=== PATIENT | female | born 1975 | race Two or more races ===

== ENCOUNTER 2019-01-10 19:56 | Emergency (ER) | payer BC ==
[~2019-01-10] VITALS: Ht 162.6 cm; Wt 86.2 kg
[2019-01-10] MEDS ORDERED: IBUPROFEN 800 MG TAB PO ONE ×2 (21:21→21:30)
[2019-01-10 22:29] VITALS: BP 126/85
== END 2019-01-10 22:32 | disposition home or self-care (01) ==
LOC: ER 20:00
DX: S62.346A Nondisplaced fracture of base of fifth metacarpal bone, right hand, initial encounter for closed fracture (principal); R51 Headache; M54.2 Cervicalgia; V43.52XA Car driver injured in collision with other type car in traffic accident, initial encounter; Y93.89 Activity, other specified; Y99.8 Other external cause status; Y92.410 Unspecified street and highway as the place of occurrence of the external cause
CPT/HCPCS: 29125; 70450; 71250; 72125; 73090; 73130; 73562; 74176

== ENCOUNTER 2020-04-22 05:50 | Emergency (ER) | payer BC ==
[~2020-04-22] VITALS: Ht 162.6 cm; Wt 83.9 kg
[2020-04-22] MEDS ORDERED: ASPirin 81 mg TAB PO ONE (07:00)
[2020-04-22 07:21] LABS: Basophils # (auto) 0.1 10 ^3/uL (0-0.2); Basophils % (auto) 0.7 % (0.0-2.0); Eosinophils # (auto) 0.2 10 ^3/uL (0-0.8); Eosinophils % (auto) 2.4 % (0.0-7.0); Hemoglobin 13.6 g/dL (12.2-16.2); Lymphocytes # (auto) 3.3 10 ^3/uL (0.4-5.4); Lymphocytes % (auto) 33.4 % (10.0-50.0); Mean Corpuscular Hgb Conc. 35.8 g/dL (32.0-36.0); Mean Corpuscular Volume 94.8 fL (80.0-100.0); Monocytes # (auto) 0.6 10 ^3/uL (0-1.3); Neutrophils # (auto) 5.6 10 ^3/uL (1.6-8.6); Neutrophils % (auto) 57.5 % (37.0-80.0); Nucleated Red Blood Cells % 0.1 %; Platelet Count (auto) 180 10^3/uL (140-450); Red Blood Cells 4.01 10^6/uL (4.0-5.20); Red Cell Distribution Width 13.6 % (11.8-14.3); White Blood Cell 9.8 10^3/uL (4.4-10.8)
[2020-04-22 07:39] LABS: INR 0.92 (0.9-1.15); Partial Thromboplastin Time 25.4 sec (23.0-31.2)
[2020-04-22 07:41] LABS: Albumin 3.3 g/dL (3.4-5.0); Anion Gap 9 (5-15); Blood Urea Nitrogen 10 mg/dL (7-18); Calcium 8.7 mg/dL (8.5-10.1); Carbon Dioxide 22 mmol/L (21-32); Chloride 108 mmol/L (98-107); Glucose 97 mg/dL (74-106); Magnesium 2.5 mg/dL (1.6-2.6); Potassium 3.9 mmol/L (3.5-5.1); Sodium 139 mmol/L (136-145)
[2020-04-22 07:50] LABS: Alanine Aminotransferase 46 U/L (13-56); Alkaline Phosphatase 110 U/L (45-117); Aspartate Aminotransferase 16 U/L (15-37); Bilirubin, Total 0.3 mg/dL (0.2-1.0); GFR African American 169 mL/min; GFR Non-African American 140 mL/min; Total Protein 7.2 g/dL (6.4-8.2)
[2020-04-22 08:09] VITALS: BP 125/75
[2020-04-22 12:07] LABS: BUN/Creatinine Ratio 19.6
== END 2020-04-22 08:42 | disposition home or self-care (01) ==
LOC: ER 05:50
DX: R07.89 Other chest pain (principal); F41.9 Anxiety disorder, unspecified
CPT/HCPCS: 36415; 71045; 80053; 83735; 83880; 84484; 85025; 85610; 85730; 93005

== ENCOUNTER → 2020-04-29 | Outpatient (CLI) | payer BC | END | disposition home or self-care (01) | LOC: LAB 10:05 | PROVIDERS: ATTEND Internal Medicine Pulmonary Disease | DX: Z01.812 Encounter for preprocedural laboratory examination (principal); Z20.822 Contact with and (suspected) exposure to COVID-19 | CPT/HCPCS: 36415; 87426 ==

== ENCOUNTER → 2020-04-30 | Outpatient (CLI) | payer BC | END | disposition home or self-care (01) | LOC: PF 07:59 | PROVIDERS: ATTEND Internal Medicine Pulmonary Disease | DX: J45.909 Unspecified asthma, uncomplicated (principal); U07.1 COVID-19 | CPT/HCPCS: 94060 ==

== ENCOUNTER → 2020-05-29 | Outpatient (CLI) | payer BC | END | disposition home or self-care (01) | LOC: XYW 11:03 | PROVIDERS: ATTEND Internal Medicine Pulmonary Disease | DX: R06.00 Dyspnea, unspecified (principal); J45.20 Mild intermittent asthma, uncomplicated; B94.8 Sequelae of other specified infectious and parasitic diseases | CPT/HCPCS: 93306 ==

== ENCOUNTER → 2020-06-07 | Outpatient (CLI) | payer BC ==
[2020-06-07 08:30] LABS: Basophils # (auto) 0.1 10 ^3/uL (0-0.2); Basophils % (auto) 0.7 % (0.0-2.0); Eosinophils # (auto) 0.2 10 ^3/uL (0-0.8); Eosinophils % (auto) 2.9 % (0.0-7.0); Hematocrit 40.3 % (36.0-46.0); Hemoglobin 13.9 g/dL (12.2-16.2); Lymphocytes # (auto) 2.9 10 ^3/uL (0.4-5.4); Lymphocytes % (auto) 37.7 % (10.0-50.0); Mean Corpuscular Hemoglobin 32.8 pg (28.0-32.0); Mean Corpuscular Hgb Conc. 34.5 g/dL (32.0-36.0); Mean Corpuscular Volume 95.3 fL (80.0-100.0); Monocytes # (auto) 0.4 10 ^3/uL (0-1.3); Monocytes % (auto) 5.2 % (0.0-12.0); Neutrophils # (auto) 4.2 10 ^3/uL (1.6-8.6); Neutrophils % (auto) 53.5 % (37.0-80.0); Nucleated Red Blood Cells % 0.1 %; Platelet Count (auto) 226 10^3/uL (140-450); Red Blood Cells 4.23 10^6/uL (4.0-5.20); Red Cell Distribution Width 12.8 % (11.8-14.3); White Blood Cell 7.8 10^3/uL (4.4-10.8)
[2020-06-07 09:04] LABS: Albumin 3.6 g/dL (3.4-5.0); Calcium 8.8 mg/dL (8.5-10.1)
[2020-06-07 09:10] LABS: BUN/Creatinine Ratio 17.4; Bilirubin, Total 0.3 mg/dL (0.2-1.0); Total Protein 7.1 g/dL (6.4-8.2)
== END | disposition home or self-care (01) ==
LOC: LAB 07:59
PROVIDERS: ATTEND Internal Medicine
DX: J45.20 Mild intermittent asthma, uncomplicated (principal); R06.00 Dyspnea, unspecified
CPT/HCPCS: 36415; 80053; 80061; 82306; 83036; 84443; 85025

== ENCOUNTER 2021-04-18 08:07 | Emergency (ER) | payer BC ==
[~2021-04-18] VITALS: Ht 162.6 cm; Wt 79.4 kg
[2021-04-18 08:26] VITALS: BP 141/84
[2021-04-18] MEDS ORDERED: KETOROLAC TROMETH 30 MG/ML 1ML VIAL IV ONE (08:30)
[2021-04-18] MEDS ORDERED: SODIUM CHLORIDE 0.9% 500 ML IV ONE (08:30)
[2021-04-18 08:39] LABS: Urine WBC None Seen /hpf (0 - 5)
[2021-04-18 08:49] LABS: Basophils # (auto) 0.1 10 ^3/uL (0-0.2); Basophils % (auto) 0.9 % (0.0-2.0); Eosinophils # (auto) 0.2 10 ^3/uL (0-0.8); Eosinophils % (auto) 2.6 % (0.0-7.0); Neutrophils # (auto) 4.2 10 ^3/uL (1.6-8.6); Red Cell Distribution Width 12.5 % (11.8-14.3)
[2021-04-18 08:52] LABS: Hematocrit 40.9 % (36.0-46.0); Hemoglobin 14.3 g/dL (12.2-16.2); Lymphocytes # (auto) 2.3 10 ^3/uL (0.4-5.4); Lymphocytes % (auto) 32.9 % (10.0-50.0); Mean Corpuscular Hemoglobin 33.6 pg (28.0-32.0); Mean Corpuscular Hgb Conc. 34.9 g/dL (32.0-36.0); Mean Corpuscular Volume 96.1 fL (80.0-100.0); Monocytes # (auto) 0.4 10 ^3/uL (0-1.3); Monocytes % (auto) 4.9 % (0.0-12.0); Neutrophils % (auto) 58.7 % (37.0-80.0); Nucleated Red Blood Cells % 0.1 %; Red Blood Cells 4.25 10^6/uL (4.0-5.20); White Blood Cell 7.1 10^3/uL (4.4-10.8)
[2021-04-18 08:54] LABS: Urine Bacteria NONE SEEN /hpf (None Seen); Urine Blood Negative /uL (Negative); Urine Specific Gravity 1.019 (1.001-1.035)
[2021-04-18 09:04] LABS: Calcium 8.8 mg/dL (8.5-10.1)
[2021-04-18 09:07] LABS: BUN/Creatinine Ratio 18.9; Bilirubin, Total 0.5 mg/dL (0.2-1.0); Total Protein 7.5 g/dL (6.4-8.2)
[2021-04-18] MEDS ORDERED: DICY20TA PO (09:22)
[2021-04-18] MEDS ORDERED: LACT10SO3 PO ×2 (09:23→09:24)
== END 2021-04-18 09:42 | disposition home or self-care (01) ==
LOC: ER 08:07
DX: K59.00 Constipation, unspecified (principal); K57.90 Diverticulosis of intestine, part unspecified, without perforation or abscess without bleeding; K76.0 Fatty (change of) liver, not elsewhere classified; J45.909 Unspecified asthma, uncomplicated; Z90.710 Acquired absence of both cervix and uterus
CPT/HCPCS: 36415; 74176; 80053; 81001; 83690; 85025; 96361; 96374; 99284; J1885; J7030

== ENCOUNTER 2021-06-06 17:06 | Inpatient (IN) | payer BC ==
[~2021-06-06] VITALS: Ht 162.6 cm; Wt 82.5 kg
[~2021-06-06 17:06] MED LIST: DICY20TA PO; LACT10SO3 PO
[2021-06-06] MEDS ORDERED: PANTOPRAZOLE 40 MG/10 ML VIAL INJ IV ONE (18:30)
[2021-06-06] MEDS ORDERED: ONDANSETRON HCL 4 MG/2 ML VIAL IV ONE (18:30)
[2021-06-06 18:49] LABS: Basophils # (auto) 0.1 10 ^3/uL (0-0.2); Basophils % (auto) 1.1 % (0.0-2.0); Eosinophils # (auto) 0.2 10 ^3/uL (0-0.8); Eosinophils % (auto) 2.3 % (0.0-7.0); Hematocrit 40.9 % (36.0-46.0); Hemoglobin 14.3 g/dL (12.2-16.2); Lymphocytes # (auto) 3.8 10 ^3/uL (0.4-5.4); Lymphocytes % (auto) 41.6 % (10.0-50.0); Mean Corpuscular Hemoglobin 33.3 pg (28.0-32.0); Mean Corpuscular Hgb Conc. 34.9 g/dL (32.0-36.0); Mean Corpuscular Volume 95.3 fL (80.0-100.0); Monocytes # (auto) 0.4 10 ^3/uL (0-1.3); Monocytes % (auto) 4.4 % (0.0-12.0); Neutrophils # (auto) 4.6 10 ^3/uL (1.6-8.6); Neutrophils % (auto) 50.6 % (37.0-80.0); Nucleated Red Blood Cells % 0.1 %; Red Blood Cells 4.29 10^6/uL (4.0-5.20); Red Cell Distribution Width 12.3 % (11.8-14.3)
[2021-06-06 19:10] LABS: BUN/Creatinine Ratio 16.3; Calcium 9.4 mg/dL (8.5-10.1); Potassium 3.8 mmol/L (3.5-5.1)
[2021-06-06 19:13] LABS: Bilirubin, Total 0.2 mg/dL (0.2-1.0); Total Protein 7.5 g/dL (6.4-8.2)
[2021-06-06 19:16] LABS: Urine Bacteria NONE SEEN /hpf (None Seen); Urine Blood Negative /uL (Negative); Urine Specific Gravity 1.015 (1.001-1.035); Urine WBC 2 /hpf (0 - 5)
[2021-06-06] MEDS ORDERED: MORPHINE SULFATE 4 MG/ML SYR/VIAL IV ONE (19:30)
[2021-06-06] MEDS ORDERED: SODIUM CHLORIDE 0.9% 1,000 ML IV ONE (19:30)
[2021-06-06] MEDS ORDERED: FAMOTIDINE (10MG/ML) 2ML VL IV ONE (23:00)
[2021-06-07] VITALS (8 sets, daily range): BP systolic 108–150; BP diastolic 55–99
[2021-06-07] MEDS: SODIUM CHLORIDE 0.9% 1,000 ML IV SCH ×2 (00:35→14:26)
[2021-06-07] MEDS ORDERED: TRAZ100T3 PO (01:34)
[2021-06-07] MEDS ORDERED: DICY10CA PO (01:34)
[2021-06-07] MEDS: MORPHINE SULFATE INJECTION 2 MG/ML SYRG IV PRN ×4 (03:02→18:46)
[2021-06-07] MEDS: SODIUM CHLOR 0.9% PF (SALINE LOCK) 10ML VIAL/SYR IV SCH ×3 (05:36→22:27)
[2021-06-07] MEDS: HYDROcodone-ACET 5/325MG TAB PO PRN (07:40)
[2021-06-08] MEDS: MORPHINE SULFATE INJECTION 2 MG/ML SYRG IV PRN ×3 (01:52→19:55)
[2021-06-08 05:00] VITALS: BP 110/74
[2021-06-08 05:48] LABS: Basophils # (auto) 0.1 10 ^3/uL (0-0.2); Basophils % (auto) 0.6 % (0.0-2.0); Eosinophils # (auto) 0.3 10 ^3/uL (0-0.8); Hematocrit 39.2 % (36.0-46.0); Hemoglobin 13.9 g/dL (12.2-16.2); Lymphocytes # (auto) 2.9 10 ^3/uL (0.4-5.4); Lymphocytes % (auto) 34.8 % (10.0-50.0); Mean Corpuscular Hemoglobin 33.6 pg (28.0-32.0); Mean Corpuscular Hgb Conc. 35.4 g/dL (32.0-36.0); Mean Corpuscular Volume 94.8 fL (80.0-100.0); Monocytes # (auto) 0.4 10 ^3/uL (0-1.3); Monocytes % (auto) 4.8 % (0.0-12.0); Neutrophils # (auto) 4.8 10 ^3/uL (1.6-8.6); Neutrophils % (auto) 56.8 % (37.0-80.0); Nucleated Red Blood Cells % 0.1 %; Red Blood Cells 4.14 10^6/uL (4.0-5.20); Red Cell Distribution Width 12.5 % (11.8-14.3); White Blood Cell 8.4 10^3/uL (4.4-10.8)
[2021-06-08 05:56] LABS: BUN/Creatinine Ratio 24.7; Calcium 8.5 mg/dL (8.5-10.1); Potassium 4.2 mmol/L (3.5-5.1)
[2021-06-08] MEDS: SODIUM CHLOR 0.9% PF (SALINE LOCK) 10ML VIAL/SYR IV SCH ×3 (06:10→21:52)
[2021-06-08] MEDS: SODIUM CHLORIDE 0.9% 1,000 ML IV SCH (08:20)
[2021-06-08 08:30] VITALS: BP 123/63
[2021-06-08] MEDS: ACETAMINOPHEN 325 MG TAB PO PRN (09:00)
[2021-06-08] MEDS: ONDANSETRON HCL 4 MG/2 ML VIAL IV PRN (09:00)
[2021-06-08 11:41] LABS: INR 1.03 (0.9-1.15); Partial Thromboplastin Time 26.1 sec (23.6-33.0)
[2021-06-08 12:30] VITALS: BP 127/80
[2021-06-08 17:00] VITALS: BP 106/66
[2021-06-08 20:00] VITALS: BP 102/57
[2021-06-08 22:00] VITALS: BP 102/57
[2021-06-09] VITALS (8 sets, daily range): BP systolic 104–121; BP diastolic 65–85
[2021-06-09] MEDS: SODIUM CHLORIDE 0.9% 1,000 ML IV SCH ×2 (02:13→17:10)
[2021-06-09] MEDS: SODIUM CHLOR 0.9% PF (SALINE LOCK) 10ML VIAL/SYR IV SCH ×3 (06:01→22:00)
[2021-06-09] MEDS ORDERED: BUPIVACAINE HCL 50 ML ONE (07:22)
[2021-06-09] MEDS ORDERED: fentaNYL CITRATE 100 MCG/2 ML VL ONE ×2 (08:42→09:02)
[2021-06-09] MEDS ORDERED: MIDAZOLAM HCL 2MG/2ML 2ml VIAL (1mg/ml) ONE (08:43)
[2021-06-09] MEDS ORDERED: ROCURONIUM 10MG/ML 10ML VIAL IV ONE (08:44)
[2021-06-09] MEDS ORDERED: NEOSTIGMINE 1 MG/ML INJ (10mg/10ML VIAL) ONE (09:45)
[2021-06-09] MEDS ORDERED: GLYCOPYRROLATE 0.2 MG/ML 1ML VIAL ONE (09:45)
[2021-06-09] MEDS ORDERED: PROPOFOL 10 MG/ML 20 ML IV ONE (09:53)
[2021-06-09] MEDS ORDERED: ONDANSETRON HCL 4 MG/2 ML VIAL ONE (09:54)
[2021-06-09] MEDS ORDERED: LIDOCAINE 2% (LOCAL ANESTH.) PF 5ml SDV ONE (09:54)
[2021-06-09] MEDS: POTASSIUM CHLORIDE 20 MEQ in D5W/LACTATED RINGERS 1,000 ML IV SCH ×2 (10:00→20:06)
[2021-06-09] MEDS ORDERED: ONDANSETRON HCL 4 MG/2 ML VIAL IV PRN (10:15)
[2021-06-09] MEDS ORDERED: HYDROmorphone HCL 2 MG/ML VL/or syr IV PRN ×2 (10:15)
[2021-06-09] MEDS: ONDANSETRON HCL 4 MG/2 ML VIAL IV PRN ×2 (12:39→17:18)
[2021-06-09] MEDS: MORPHINE SULFATE INJECTION 2 MG/ML SYRG IV PRN ×2 (12:39→19:55)
[2021-06-09] MEDS ORDERED: SENNA 8.6 MG TAB PO ONE (16:45)
[2021-06-09] MEDS: HYDROcodone-ACET 5/325MG TAB PO PRN ×2 (17:18→23:07)
[2021-06-10] MEDS: MORPHINE SULFATE INJECTION 2 MG/ML SYRG IV PRN (00:18)
[2021-06-10 05:13] VITALS: BP 110/62
[2021-06-10 05:29] LABS: Basophils # (auto) 0 10 ^3/uL (0-0.2); Basophils % (auto) 0.4 % (0.0-2.0); Eosinophils # (auto) 0.2 10 ^3/uL (0-0.8); Hematocrit 37.2 % (36.0-46.0); Hemoglobin 13.2 g/dL (12.2-16.2); Lymphocytes # (auto) 2.9 10 ^3/uL (0.4-5.4); Lymphocytes % (auto) 32.4 % (10.0-50.0); Mean Corpuscular Hemoglobin 33.6 pg (28.0-32.0); Mean Corpuscular Hgb Conc. 35.5 g/dL (32.0-36.0); Mean Corpuscular Volume 94.5 fL (80.0-100.0); Monocytes # (auto) 0.5 10 ^3/uL (0-1.3); Monocytes % (auto) 5.1 % (0.0-12.0); Neutrophils # (auto) 5.4 10 ^3/uL (1.6-8.6); Neutrophils % (auto) 60.1 % (37.0-80.0); Red Blood Cells 3.93 10^6/uL (4.0-5.20); Red Cell Distribution Width 12.5 % (11.8-14.3)
[2021-06-10 05:43] LABS: Calcium 8.4 mg/dL (8.5-10.1); Potassium 3.7 mmol/L (3.5-5.1)
[2021-06-10] MEDS: HYDROcodone-ACET 5/325MG TAB PO PRN (05:44)
[2021-06-10] MEDS: SODIUM CHLOR 0.9% PF (SALINE LOCK) 10ML VIAL/SYR IV SCH (05:45)
[2021-06-10] MEDS: POTASSIUM CHLORIDE 20 MEQ in D5W/LACTATED RINGERS 1,000 ML IV SCH (05:45)
[2021-06-10 05:46] LABS: BUN/Creatinine Ratio 15.5
[2021-06-10 09:00] VITALS: BP 128/79
[2021-06-10] MEDS ORDERED: cefTRIAXone 1GM/50ML D5W 50 ML IV SCH (09:00)
[2021-06-10] MEDS ORDERED: AMOX500T86 PO (10:18)
[2021-06-10] MEDS: SODIUM CHLORIDE 0.9% 1,000 ML IV SCH (10:24)
[2021-06-10] MEDS: ACETAMINOPHEN 325 MG TAB PO PRN (10:33)
[2021-06-10 11:45] VITALS: BP 112/66
== END 2021-06-10 13:55 | disposition home or self-care (01) | DRG 419 ==
LOC: ER 17:06 → EAST 22:47
PROVIDERS: ADMIT Internal Medicine; ATTEND Internal Medicine Pulmonary Disease
PROC: 0FT44ZZ Resection of Gallbladder, Percutaneous Endoscopic Approach (ICD-10-PCS; principal; 2021-06-09 08:40)
DX: K80.12 Calculus of gallbladder with acute and chronic cholecystitis without obstruction (principal); J45.909 Unspecified asthma, uncomplicated; E66.9 Obesity, unspecified; K59.00 Constipation, unspecified; Z20.822 Contact with and (suspected) exposure to COVID-19; K66.0 Peritoneal adhesions (postprocedural) (postinfection); Z83.3 Family history of diabetes mellitus; Z90.710 Acquired absence of both cervix and uterus; Z68.31 Body mass index [BMI] 31.0-31.9, adult
CPT/HCPCS: 36415; 71045; 74176; 76705; 80048; 80053; 81001; 82150; 82247; 83690; 84702; 85025; 85610; 85730; 86850; 86900; 86901; 96361; 96374; 96375; C9113; G0378; J0696; J2001; J2250; J2405; J2704; J3490

== ENCOUNTER 2023-02-27 20:58 | Emergency (ER) | payer BC ==
[~2023-02-27] VITALS: Ht 162.6 cm; Wt 84.5 kg
[~2023-02-27 20:58] MED LIST changes: +AMOX500T86 PO; +DICY10CA PO; +TRAZ-228 PO
[2023-02-27 21:14] VITALS: RESP 16; TEMP 98; O2SAT 98
[2023-02-27 23:10] LABS: Basophils # (auto) 0.1 10 ^3/uL (0-0.2); Basophils % (auto) 0.7 % (0.0-2.0); Eosinophils # (auto) 0.3 10 ^3/uL (0-0.8); Eosinophils % (auto) 3.8 % (0.0-7.0); Hematocrit 39.7 % (36.0-46.0); Hemoglobin 13.7 g/dL (12.2-16.2); Lymphocytes # (auto) 3.3 10 ^3/uL (0.4-5.4); Lymphocytes % (auto) 40.5 % (10.0-50.0); Mean Corpuscular Hemoglobin 32.9 pg (28.0-32.0); Mean Corpuscular Hgb Conc. 34.6 g/dL (32.0-36.0); Mean Corpuscular Volume 95.3 fL (80.0-100.0); Monocytes # (auto) 0.5 10 ^3/uL (0-1.3); Monocytes % (auto) 6.5 % (0.0-12.0); Neutrophils # (auto) 3.9 10 ^3/uL (1.6-8.6); Neutrophils % (auto) 48.5 % (37.0-80.0); Nucleated Red Blood Cells % 0.1 %; Red Blood Cells 4.17 10^6/uL (4.0-5.20); Red Cell Distribution Width 13.1 % (11.8-14.3); White Blood Cell 8.1 10^3/uL (4.4-10.8)
[2023-02-27 23:23] LABS: Alanine Aminotransferase 72 U/L (7-40); Albumin 4.5 g/dL (3.2-4.8); Alkaline Phosphatase 98 U/L (46-116); Anion Gap 7 (5-15); Aspartate Aminotransferase 21 U/L (13-40); BUN/Creatinine Ratio 17.8 (10.0-20.0); Bilirubin, Total 0.3 mg/dL (0.2-1.0); Blood Urea Nitrogen 13 mg/dL (9-23); Carbon Dioxide 24 mmol/L (20-30); Chloride 109 mmol/L (98-107); Glucose 106 mg/dL (74-106); Potassium 3.8 mmol/L (3.5-5.1); Sodium 140 mmol/L (136-145); Total Protein 7.1 g/dL (5.7-8.2)
[2023-02-28] MEDS ORDERED: KETOROLAC TROMETH 60MG/2ML VIAL IM ONE (00:45)
[2023-02-28] MEDS ORDERED: DexAMETHasone SOD PHOS 10MG/1ML VIAL INJ IM ONE (00:45)
[2023-02-28] MEDS ORDERED: HYDROcodone-ACET 5/325MG TAB PO ONE (00:45)
[2023-02-28] MEDS ORDERED: IBUP1TAB5 PO (00:48)
[2023-02-28] MEDS ORDERED: CYCL-839 PO (00:58)
[2023-02-28 01:00] VITALS: BP 135/80
[2023-02-28 01:10] VITALS: PULSE 82
== END 2023-02-28 01:13 | disposition home or self-care (01) ==
LOC: ER 20:58
DX: M94.0 Chondrocostal junction syndrome [Tietze] (principal); R03.0 Elevated blood-pressure reading, without diagnosis of hypertension; M62.838 Other muscle spasm; R07.89 Other chest pain; J45.909 Unspecified asthma, uncomplicated; Z98.890 Other specified postprocedural states; Z79.899 Other long term (current) drug therapy
CPT/HCPCS: 36415; 71046; 72040; 73030; 80053; 84484; 85025; 85379; 93005; 96372; 99285; J1100; J1885

== ENCOUNTER → 2023-03-11 | Outpatient (CLI) | payer BC ==
[~2023-03-11] MED LIST changes: +CYCL-839 PO; +IBUP1TAB5 PO
[2023-03-11 07:48] LABS: Basophils # (auto) 0 10 ^3/uL (0-0.2); Basophils % (auto) 0.5 % (0.0-2.0); Eosinophils # (auto) 0.2 10 ^3/uL (0-0.8); Eosinophils % (auto) 1.8 % (0.0-7.0); Hematocrit 42.5 % (36.0-46.0); Hemoglobin 14.1 g/dL (12.2-16.2); Lymphocytes # (auto) 2.7 10 ^3/uL (0.4-5.4); Lymphocytes % (auto) 33.3 % (10.0-50.0); Mean Corpuscular Hemoglobin 31.9 pg (28.0-32.0); Mean Corpuscular Hgb Conc. 33.2 g/dL (32.0-36.0); Mean Corpuscular Volume 96.2 fL (80.0-100.0); Monocytes # (auto) 0.4 10 ^3/uL (0-1.3); Monocytes % (auto) 5.1 % (0.0-12.0); Neutrophils # (auto) 4.9 10 ^3/uL (1.6-8.6); Neutrophils % (auto) 59.3 % (37.0-80.0); Nucleated Red Blood Cells % 0.1 %; Red Blood Cells 4.42 10^6/uL (4.0-5.20); White Blood Cell 8.2 10^3/uL (4.4-10.8)
[2023-03-11 08:56] LABS: Alanine Aminotransferase 87 U/L (7-40); Alkaline Phosphatase 98 U/L (46-116); Anion Gap 5 (5-15); BUN/Creatinine Ratio 13.5 (10.0-20.0); Blood Urea Nitrogen 10 mg/dL (9-23); Calcium 9.5 mg/dL (8.5-10.1); Carbon Dioxide 27 mmol/L (20-30); Chloride 109 mmol/L (98-107); Glucose 93 mg/dL (74-106); LDL Cholesterol 163 mg/dL (< 100); Sodium 141 mmol/L (136-145); Triglycerides 172 mg/dL (< 150)
[2023-03-11 08:57] LABS: Albumin 4.6 g/dL (3.2-4.8); Aspartate Aminotransferase 43 U/L (13-40); Bilirubin, Total 0.7 mg/dL (0.2-1.0); Cholesterol 236 mg/dL (< 200); HDL Cholesterol 53 mg/dL (40-59); Total Protein 7.2 g/dL (5.7-8.2)
[2023-03-11 09:34] LABS: Hepatitis B Core Total AB Negative (Negative)
[2023-03-11 12:06] LABS: Hepatitis A Total Antibody Negative (Negative); Hepatitis B Surface Antibody Positive (Negative)
[2023-03-11 12:07] LABS: Hepatitis B Surface Antigen Negative (Negative); Hepatitis C Antibody Negative (Negative)
[2023-03-12 07:07] LABS: RPR Non Reactive (Non Reactive)
[2023-03-12 13:07] LABS: Anti-Nuclear Antibody Direct Negative (Negative)
== END | disposition home or self-care (01) ==
LOC: LAB 07:33
PROVIDERS: ATTEND Student in an Organized Health Care Education/Training Program
DX: Z12.11 Encounter for screening for malignant neoplasm of colon (principal); Z00.00 Encounter for general adult medical examination without abnormal findings; E78.5 Hyperlipidemia, unspecified; R73.09 Other abnormal glucose
CPT/HCPCS: 36415; 80053; 80061; 82274; 84439; 84443; 85025; 86038; 86592; 86703; 86704; 86706; 86708; 86803; 87340

== ENCOUNTER 2023-11-06 09:07 | Inpatient (IN) | payer BC ==
[~2023-11-06] VITALS: Ht 162.6 cm; Wt 81.0 kg
[2023-11-06 10:11] LABS: Basophils # (auto) 0 10 ^3/uL (0-0.2); Basophils % (auto) 0.4 % (0.0-2.0); Eosinophils # (auto) 0.2 10 ^3/uL (0-0.8); Eosinophils % (auto) 1.4 % (0.0-7.0); Hematocrit 41.7 % (36.0-46.0); Hemoglobin 14.9 g/dL (12.2-16.2); Lymphocytes # (auto) 2.3 10 ^3/uL (0.4-5.4); Lymphocytes % (auto) 21.1 % (10.0-50.0); Mean Corpuscular Hemoglobin 34.3 pg (28.0-32.0); Mean Corpuscular Hgb Conc. 35.6 g/dL (32.0-36.0); Mean Corpuscular Volume 96.2 fL (80.0-100.0); Monocytes # (auto) 0.5 10 ^3/uL (0-1.3); Monocytes % (auto) 4.8 % (0.0-12.0); Neutrophils # (auto) 7.9 10 ^3/uL (1.6-8.6); Neutrophils % (auto) 72.3 % (37.0-80.0); Nucleated Red Blood Cells % 0.1 %; Platelet Count (auto) 189 10^3/uL (140-450); Red Blood Cells 4.33 10^6/uL (4.0-5.20)
[2023-11-06 10:17] LABS: Chloride 106 mmol/L (98-107); Potassium 4.1 mmol/L (3.5-5.1); Sodium 140 mmol/L (136-145)
[2023-11-06 10:18] LABS: Anion Gap 8 (5-15); Calcium 9.9 mg/dL (8.7-10.4); Carbon Dioxide 26 mmol/L (20-31)
[2023-11-06 10:23] LABS: BUN/Creatinine Ratio 13.6 (10.0-20.0); Blood Urea Nitrogen 11 mg/dL (9-23); Glucose 92 mg/dL (74-106)
[2023-11-06 10:25] LABS: Urine Bacteria FEW /hpf (None Seen); Urine Blood Negative /uL (Negative); Urine Clarity Clear (Clear); Urine Color Yellow (Yellow); Urine Mucus FEW (None Seen); Urine Protein, UAD 1+ (Negative); Urine Specific Gravity 1.028 (1.001-1.035); Urine Urobilinogen Normal (Negative); Urine WBC 2 /hpf (0 - 5); Urine pH 5.5 (5.0-9.0)
[2023-11-06] MEDS: SODIUM CHLORIDE 0.9% 1,000 ML IV ONE ×2 (11:01→12:18)
[2023-11-06] MEDS: ONDANSETRON HCL 4 MG/2 ML VIAL IV ONE (11:40)
[2023-11-06] MEDS: MORPHINE SULFATE INJ 2 MG/ml SYRG IV ONE (11:41)
[2023-11-06] MEDS: IOHEXOL 300 MG/ML 100ML BOTTLE IJ ONE (12:07)
[2023-11-06] MEDS ORDERED: NITROGLYCERIN 0.4 MG SL TAB SL PRN (14:00)
[2023-11-06] MEDS ORDERED: DOCUSATE SOD 100 MG CAP PO PRN (14:00)
[2023-11-06] MEDS: PIPERACILLIN-TAZOB 3.375GM 100 ML IV ONE (14:22)
[2023-11-06 15:11] LABS: INR 1.05 (0.9-1.15); Prothrombin Time 11.1 sec (9.3-11.8)
[2023-11-06] MEDS: SODIUM CHLORIDE 0.9% 1,000 ML IV SCH (15:53)
[2023-11-06] MEDS: HYDROcodone-ACET 5/325MG TAB PO ONE (15:58)
[2023-11-06 16:30] VITALS: BP 105/55; PULSE 67; RESP 16; TEMP 98.7; O2SAT 96
[2023-11-06 17:00] VITALS: BP 105/55; PULSE 69; RESP 18; TEMP 98.7; O2SAT 97
[2023-11-06] MEDS ORDERED: ROSU20TA14 PO (17:02)
[2023-11-06] MEDS: ONDANSETRON HCL 4 MG/2 ML VIAL IV PRN (17:13)
[2023-11-06] MEDS: MORPHINE SULFATE INJ 2 MG/ml SYRG IV PRN (19:48)
[2023-11-06 21:00] VITALS: BP 104/44; PULSE 70; RESP 18; TEMP 98.1; O2SAT 95
[2023-11-06] MEDS: PIPERACILLIN-TAZOB 3.375GM 100 ML IV SCH (21:41)
[2023-11-07] VITALS (7 sets, daily range): BP systolic 104–126; BP diastolic 52–68; PULSE 58–79; RESP 16–20; TEMP 97.7–99.2; O2SAT 96–97
[2023-11-07 07:27] LABS: Basophils # (auto) 0 10 ^3/uL (0-0.2); Basophils % (auto) 0.5 % (0.0-2.0); Eosinophils # (auto) 0.2 10 ^3/uL (0-0.8); Eosinophils % (auto) 2.2 % (0.0-7.0); Hematocrit 38.6 % (36.0-46.0); Hemoglobin 13.8 g/dL (12.2-16.2); Lymphocytes % (auto) 23.8 % (10.0-50.0); Mean Corpuscular Hemoglobin 34.5 pg (28.0-32.0); Mean Corpuscular Hgb Conc. 35.8 g/dL (32.0-36.0); Mean Corpuscular Volume 96.4 fL (80.0-100.0); Monocytes # (auto) 0.5 10 ^3/uL (0-1.3); Monocytes % (auto) 5.6 % (0.0-12.0); Neutrophils # (auto) 5.7 10 ^3/uL (1.6-8.6); Neutrophils % (auto) 67.9 % (37.0-80.0); Platelet Count (auto) 176 10^3/uL (140-450); Red Cell Distribution Width 12.8 % (11.8-14.3); White Blood Cell 8.4 10^3/uL (4.4-10.8)
[2023-11-07 07:47] LABS: Alanine Aminotransferase 40 U/L (7-40); Alkaline Phosphatase 106 U/L (46-116); Anion Gap 9 (5-15); Blood Urea Nitrogen 8 mg/dL (9-23); Calcium 9.2 mg/dL (8.7-10.4); Carbon Dioxide 25 mmol/L (20-31); Chloride 106 mmol/L (98-107); Glucose 80 mg/dL (74-106); Potassium 3.8 mmol/L (3.5-5.1); Sodium 140 mmol/L (136-145)
[2023-11-07 07:48] LABS: Albumin 4.2 g/dL (3.2-4.8); Aspartate Aminotransferase 14 U/L (13-40); Bilirubin, Total 1.3 mg/dL (0.2-1.0); Total Protein 6.7 g/dL (5.7-8.2)
[2023-11-08] VITALS (8 sets, daily range): BP systolic 107–132; BP diastolic 60–63; PULSE 68–92; RESP 15–18; TEMP 97.8–98.3; O2SAT 95–99
[2023-11-08 07:01] LABS: Eosinophils # (auto) 0.2 10 ^3/uL (0-0.8); Lymphocytes # (auto) 1.9 10 ^3/uL (0.4-5.4); Monocytes # (auto) 0.5 10 ^3/uL (0-1.3); Neutrophils % (auto) 69.3 % (37.0-80.0)
[2023-11-08 07:08] LABS: Basophils # (auto) 0 10 ^3/uL (0-0.2); Basophils % (auto) 0.5 % (0.0-2.0); Eosinophils % (auto) 2.3 % (0.0-7.0); Hematocrit 38.6 % (36.0-46.0); Hemoglobin 13.7 g/dL (12.2-16.2); Lymphocytes % (auto) 22.6 % (10.0-50.0); Mean Corpuscular Hemoglobin 34.1 pg (28.0-32.0); Mean Corpuscular Hgb Conc. 35.5 g/dL (32.0-36.0); Mean Corpuscular Volume 96.1 fL (80.0-100.0); Monocytes % (auto) 5.3 % (0.0-12.0); Platelet Count (auto) 176 10^3/uL (140-450); Red Blood Cells 4.02 10^6/uL (4.0-5.20); White Blood Cell 8.6 10^3/uL (4.4-10.8)
[2023-11-08 07:26] LABS: Anion Gap 8 (5-15); Calcium 9.3 mg/dL (8.7-10.4); Carbon Dioxide 26 mmol/L (20-31); Chloride 106 mmol/L (98-107); Potassium 3.7 mmol/L (3.5-5.1); Sodium 140 mmol/L (136-145)
[2023-11-08 07:32] LABS: BUN/Creatinine Ratio 13.9 (10.0-20.0); Blood Urea Nitrogen 10 mg/dL (9-23); Glucose 76 mg/dL (74-106)
[2023-11-08] MEDS: GADOTERATE MEG 7.5 MMOL/15ml INJ (0.5MMOL/ml) IV ONE (09:38)
[2023-11-08] MEDS: PANTOPRAZOLE 40 MG/10 ML VIAL INJ IV SCH (10:59)
[2023-11-08] MEDS: ERGOCALCIFEROL 50,000 UNIT(1.25MG) CAP PO SCH (12:09)
[2023-11-09] VITALS (8 sets, daily range): BP systolic 108–125; BP diastolic 52–68; PULSE 72–85; RESP 17–18; TEMP 97.8–98.3; O2SAT 94–98
[2023-11-09 06:46] LABS: Anion Gap 8 (5-15); Carbon Dioxide 25 mmol/L (20-31); Chloride 107 mmol/L (98-107); Sodium 140 mmol/L (136-145)
[2023-11-09 06:47] LABS: Calcium 9.1 mg/dL (8.7-10.4)
[2023-11-09 06:53] LABS: BUN/Creatinine Ratio 17.3 (10.0-20.0); Blood Urea Nitrogen 13 mg/dL (9-23); Glucose 68 mg/dL (74-106)
[2023-11-09 07:53] LABS: Basophils # (auto) 0 10 ^3/uL (0-0.2); Basophils % (auto) 0.4 % (0.0-2.0); Eosinophils # (auto) 0.2 10 ^3/uL (0-0.8); Hematocrit 39.2 % (36.0-46.0); Hemoglobin 13.8 g/dL (12.2-16.2); Lymphocytes # (auto) 1.9 10 ^3/uL (0.4-5.4); Lymphocytes % (auto) 22.4 % (10.0-50.0); Mean Corpuscular Hemoglobin 33.9 pg (28.0-32.0); Mean Corpuscular Hgb Conc. 35.3 g/dL (32.0-36.0); Mean Corpuscular Volume 96.3 fL (80.0-100.0); Monocytes # (auto) 0.4 10 ^3/uL (0-1.3); Monocytes % (auto) 5.1 % (0.0-12.0); Neutrophils % (auto) 70.1 % (37.0-80.0); Platelet Count (auto) 189 10^3/uL (140-450); Red Blood Cells 4.08 10^6/uL (4.0-5.20); Red Cell Distribution Width 12.6 % (11.8-14.3); White Blood Cell 8.5 10^3/uL (4.4-10.8)
[2023-11-09] MEDS: ceFAZolin 2 GM/D5W100ml 100 ML IV ONE (10:10)
[2023-11-09] MEDS: BUPIVACAINE 0.25% INJ 50ML VIAL ONE (10:42)
[2023-11-09] MEDS: LIDOCAINE W/ EPINEPHRINE 1% 20ML VIAL ONE (10:42)
[2023-11-09] MEDS ORDERED: MIDAZOLAM HCL 2MG/2ML 2ml VIAL (1mg/ml) ONE (11:23)
[2023-11-09] MEDS ORDERED: fentaNYL CITRATE 100 MCG/2 ML VL ONE (11:23)
[2023-11-09] MEDS ORDERED: MEPERIDINE HCL (25 MG/ML) 1ML VIAL ONE (11:24)
[2023-11-09] MEDS ORDERED: ROCURONIUM 10MG/ML 10ML VIAL IV ONE (11:50)
[2023-11-09] MEDS ORDERED: DexAMETHasone SOD PHOS 10MG/1ML VIAL INJ ONE (11:50)
[2023-11-09] MEDS ORDERED: PROPOFOL 10 MG/ML 20 ML IV ONE (11:50)
[2023-11-09] MEDS ORDERED: SUGAMMADEX 200mg/2ml Vial (100MG/ML) IV ONE (12:16)
[2023-11-09] MEDS ORDERED: ePHEDrine SULFATE 50 MG/ML AMP IV PRN (12:45)
[2023-11-09] MEDS: ONDANSETRON HCL 4 MG/2 ML VIAL IV ONE (12:45)
[2023-11-09] MEDS ORDERED: MORPHINE SULFATE 4 MG/ML SYR/VIAL IV PRN (12:45)
[2023-11-09] MEDS ORDERED: HYDROmorphone HCL 2 MG/ML VL/or syr IV PRN ×2 (12:45→13:00)
[2023-11-09] MEDS ORDERED: hydrALAZINE HCL 20 MG/ML VL IV PRN (12:45)
[2023-11-09] MEDS ORDERED: MIDAZOLAM HCL 2MG/2ML 2ml VIAL (1mg/ml) IV PRN (12:45)
[2023-11-09] MEDS: KETOROLAC TROMETH 30 MG/ML 1ML VIAL IV ONE (12:45)
[2023-11-09] MEDS: D5W/SOD CHL 0.45%/KCL 20MEQ 1,000 ML IV SCH (14:19)
[2023-11-09] MEDS: ceFAZolin 2 GM/D5W50ml 50 ML IV SCH (15:10)
[2023-11-09] MEDS: ONDANSETRON HCL 4 MG/2 ML VIAL IV PRN (17:37)
[2023-11-10] VITALS (8 sets, daily range): BP systolic 101–125; BP diastolic 52–66; PULSE 67–93; RESP 18–22; TEMP 97.4–98.7; O2SAT 95–99
[2023-11-10] MEDS: ACETAMINOPHEN/CODEINE#3 (300/30mg) TAB PO PRN (01:23)
[2023-11-10 06:15] LABS: Basophils # (auto) 0 10 ^3/uL (0-0.2); Basophils % (auto) 0.2 % (0.0-2.0); Eosinophils # (auto) 0 10 ^3/uL (0-0.8); Eosinophils % (auto) 0.2 % (0.0-7.0); Hematocrit 37.8 % (36.0-46.0); Hemoglobin 13.4 g/dL (12.2-16.2); Lymphocytes # (auto) 1.8 10 ^3/uL (0.4-5.4); Lymphocytes % (auto) 17.3 % (10.0-50.0); Mean Corpuscular Hemoglobin 33.4 pg (28.0-32.0); Mean Corpuscular Hgb Conc. 35.4 g/dL (32.0-36.0); Mean Corpuscular Volume 94.3 fL (80.0-100.0); Monocytes # (auto) 0.7 10 ^3/uL (0-1.3); Monocytes % (auto) 6.9 % (0.0-12.0); Neutrophils # (auto) 7.9 10 ^3/uL (1.6-8.6); Neutrophils % (auto) 75.4 % (37.0-80.0); Nucleated Red Blood Cells % 0.1 %; Platelet Count (auto) 223 10^3/uL (140-450); Red Blood Cells 4.01 10^6/uL (4.0-5.20); Red Cell Distribution Width 12.5 % (11.8-14.3); White Blood Cell 10.4 10^3/uL (4.4-10.8)
[2023-11-10 06:28] LABS: Anion Gap 6 (5-15); Carbon Dioxide 25 mmol/L (20-31); Chloride 108 mmol/L (98-107); Potassium 4.1 mmol/L (3.5-5.1); Sodium 139 mmol/L (136-145)
[2023-11-10 06:29] LABS: Calcium 9.3 mg/dL (8.7-10.4)
[2023-11-10 06:33] LABS: Glucose 126 mg/dL (74-106)
[2023-11-10 06:34] LABS: BUN/Creatinine Ratio 9.8 (10.0-20.0); Blood Urea Nitrogen 6 mg/dL (9-23)
[2023-11-10] MEDS: PANTOPRAZOLE 40 MG/10 ML VIAL INJ IV SCH (08:31)
[2023-11-10] MEDS ORDERED: CEPH250C PO (13:44)
[2023-11-10] MEDS ORDERED: DOCU-265 PO (13:44)
[2023-11-10] MEDS ORDERED: NAP500T PO (13:44)
[2023-11-11 01:00] VITALS: BP 102/54; PULSE 84; RESP 16; TEMP 98.9; O2SAT 96
[2023-11-11 05:00] VITALS: BP 101/68; PULSE 87; RESP 18; TEMP 99.1; O2SAT 96
[2023-11-11 06:44] LABS: Basophils # (auto) 0.1 10 ^3/uL (0-0.2); Basophils % (auto) 0.7 % (0.0-2.0); Eosinophils # (auto) 0.1 10 ^3/uL (0-0.8); Eosinophils % (auto) 0.8 % (0.0-7.0); Hematocrit 36.5 % (36.0-46.0); Hemoglobin 13.1 g/dL (12.2-16.2); Lymphocytes # (auto) 2.6 10 ^3/uL (0.4-5.4); Lymphocytes % (auto) 25.2 % (10.0-50.0); Mean Corpuscular Hgb Conc. 35.9 g/dL (32.0-36.0); Mean Corpuscular Volume 94.9 fL (80.0-100.0); Monocytes # (auto) 0.9 10 ^3/uL (0-1.3); Monocytes % (auto) 8.3 % (0.0-12.0); Neutrophils # (auto) 6.7 10 ^3/uL (1.6-8.6); Platelet Count (auto) 200 10^3/uL (140-450); Red Blood Cells 3.84 10^6/uL (4.0-5.20); Red Cell Distribution Width 12.9 % (11.8-14.3); White Blood Cell 10.3 10^3/uL (4.4-10.8)
[2023-11-11 06:50] LABS: Chloride 105 mmol/L (98-107); Sodium 138 mmol/L (136-145)
[2023-11-11 06:51] LABS: Anion Gap 7 (5-15); Carbon Dioxide 26 mmol/L (20-31)
[2023-11-11 06:56] LABS: Glucose 104 mg/dL (74-106)
[2023-11-11 06:57] LABS: BUN/Creatinine Ratio 8.7 (10.0-20.0); Blood Urea Nitrogen 6 mg/dL (9-23)
[2023-11-11 08:00] VITALS: PULSE 64; RESP 18; O2SAT 98
[2023-11-11 09:00] VITALS: BP 124/59; PULSE 97; RESP 19; TEMP 98.5; O2SAT 97
[2023-11-11 13:00] VITALS: BP_SYST 102; BP_SYST 131; BP_DIAS 58; BP_DIAS 86; PULSE 117; PULSE 62; RESP 17; RESP 18; TEMP 97.7; TEMP 98.5; O2SAT 95
[2023-11-11 14:21] VITALS: BP 102/58; PULSE 62; RESP 17; TEMP 98.5; O2SAT 95
== END 2023-11-11 16:45 | disposition home or self-care (01) | DRG 742 ==
LOC: ER 09:07 → OVERFLOW 14:06 → EAST 14:07
PROVIDERS: ADMIT Internal Medicine; ATTEND Internal Medicine
PROC: 0DTJ4ZZ Resection of Appendix, Percutaneous Endoscopic Approach (ICD-10-PCS; 2023-11-09)
PROC: 0UT54ZZ Resection of Right Fallopian Tube, Percutaneous Endoscopic Approach (ICD-10-PCS; principal; 2023-11-09 11:24)
DX: N70.91 Salpingitis, unspecified (principal); K35.80 Unspecified acute appendicitis; K56.7 Ileus, unspecified; K57.30 Diverticulosis of large intestine without perforation or abscess without bleeding; J44.89 Other specified chronic obstructive pulmonary disease; E78.5 Hyperlipidemia, unspecified; J45.909 Unspecified asthma, uncomplicated; E55.9 Vitamin D deficiency, unspecified; Z90.710 Acquired absence of both cervix and uterus; Z90.49 Acquired absence of other specified parts of digestive tract; Z83.3 Family history of diabetes mellitus; Z82.49 Family history of ischemic heart disease and other diseases of the circulatory system
CPT/HCPCS: 36415; 72195; 74176; 74177; 76705; 76830; 76856; 80048; 80053; 81001; 82306; 82607; 83036; 84443; 85025; 85610; 86850; 86900; 86901; 96365; 96375; G0378; J1100; J2250; J2405; J2470; J2543; J2704; J3490

== ENCOUNTER 2024-01-24 14:56 | Emergency (ER) | payer BC ==
[~2024-01-24] VITALS: Ht 162.6 cm; Wt 78.9 kg
[~2024-01-24 14:56] MED LIST changes: -AMOX500T86 PO; +CEPH250C PO; +DOCU-265 PO; -IBUP1TAB5 PO; -LACT10SO3 PO; +NAP500T PO; +ROSU20TA14 PO
--- NOTE | 2024-01-24 15:41 | ED.PDOC ---
GI ASSESSMENT HPI Comments Vitals: Temperature of 98.1 F, pulse rate of 78, respiratory rate of 16, blood pressure 121/74, and pulse oximetry of 96% on room air HPI: Poor Historian. 48-year-old female presents to the emergency department from urgent Care for evaluation of urinary symptoms for the last five days. Patient has some suprapubic discomfort intermittent for the last five days with the associated burning with the urination and polyuria. Denies any nausea or vomiting or fever. Patient states I think I have a UTI. Past Medcial History: Denies any Past Surgical History: Appendectomy, hysterectomy, right fallopian tube resection. REVIEW OF SYSTEMS: CONSTITUTIONAL: Denies acute: fever, diaphoresis, chills, generalized weakness. HEAD: Denies acute: headache, photophobia Eyes: Denies acute: Double vision, vision loss, eye pain, eye discharge. EARS: Denies acute: tinnitus, hearing loss, ear discharge, ear pain, THROAT: Denies acute: sore throat, swelling, difficulty swallowing , pain with swallowing, change in voice. NECK: Denies acute: neck pain, neck swelling, stiff neck. HEART: Denies acute : chest pain, palpitations, LUNGS: Denies acute: SOB, wheezing, cough, hemoptysis ABDOMEN: Denies acute: Nausea, Vomiting, diarrhea, melena , hematemesis, hematochezia SKIN: Denies acute: rash, redness, lesions, itchiness. EXTREMITIES: Denies acute: calf pain, numbness, tingling, weakness, denies pain in extremity. Denies acute: Low back pain. Neuro: Denies acute: focal neurological deficit, motor or sensory focal neurological deficit, tremors, seizure like activity, confusion, dizziness, change in mental status, loss of bowel or bladder function, cauda equina like symptoms. : Denies acute: hematuria, flank pain, PSYCH: Denies acute: hallucination, suicidal ideation, homicidal ideation. FEMALE: Denies acute: abnormal vaginal bleeding, foul odor, unusual discharge. PHYSICAL EXAM: General: no acute distress, awake and alert. Head: normocephalic, atraumatic. Neck: supple, trachea is midline, no swelling. Throat: Normal phonation. Eyes:, no erythema, no purulent discharge, no proptosis, no icterus. Heart: regular rate, regular rhythm, no significant murmur appreciated. Lungs: no apparent respiratory distress, Able to speak in full sentences. No wheezing, no rhonchi, no crackles. No stridors Clear to auscultation bilaterally. Abdomen: Minimal suprapubic tender to palpation, non distended, soft, no guarding, no rebound, + bowel sounds. Neuro: Awake, Alert, oriented to name, self, situation, follows commands GCS=15. Speech is normal. Skin: no petechia, no purpura, no cyanosis, non-pale, not jaundice. Lower extremities: --no - Pitting edema no deformity, no focal swelling, no calf TTP. Makes eye contact. moves all four extremities. Face: no apparent facial droop. Ambulating in the ED independently. Chief Complaint: Abdominal Pain Time Seen by MD: 15:31 Primary Care Provider: UNKNOWN Reviewed Notes: Nurses Notes, Medications, Allergies Allergies: Coded Allergies: NO KNOWN ALLERGIES (Unverified , 01/10/19) Home Meds Active Scripts Naproxen (NAPROSYN TABLET) 500 Mg Tb, 1 TAB PO BID for 10 Days, #20 TAB 1 Refill Prov:NATHALY QURESHI DO 11/10/23 Docusate Sodium (Docusate Sodium) 100 Mg Cap, 100 MG PO BID for 5 Days, #10 CAP Prov:NATHALY QURESHI DO 11/10/23 Cephalexin (KEFLEX CAPSULE) 250 Mg Cp, 2 CAP PO BID, #20 CAP Prov:NATHALY QURESHI DO 11/10/23 Cyclobenzaprine Hcl (Cyclobenzaprine Hcl) 10 Mg Tab, 1 TAB PO Q8HPRN PRN, #15 TAB As needed for muscle spasm Prov:PATTI WEBER Q AUTOMATIC PINSETTER ADJUSTER 02/28/23 Dicyclomine Hcl (Dicyclomine Hcl) 20 Mg Tab, 20 MG PO TID, #30 TAB Prov:MARIO HOOPER PA 04/18/21 Reported Medications Rosuvastatin Calcium (Crestor) 20 Mg Tab, 25 MG PO DAILY, TAB 11/06/23 Trazodone Hcl (Trazodone Hcl) 100 Mg Tab, 100 MG PO HS, MG 06/07/21 Dicyclomine Hcl (BENTYL CAPSULE) 10 Mg Cp, 1 CAP PO BID, #90 CAP 11 Refills 06/07/21 Information Source: Patient Mode of Arrival: Ambulatory Was a procedure done? Was a procedure done?: No X-Ray, Labs, Meds, VS Vital Signs Date Time Temp Pulse Resp B/P (MAP) Pulse Ox O2 Delivery O2 Flow Rate FiO2 01/24/24 15:27 98.1 78 16 121/74 (90) 96 Lab Test 01/24/24 15:41 01/24/24 15:26 Range/Units White Blood Count 9.7 4.4-10.8 10^3/uL Red Blood Count 4.30 4.0-5.20 10^6/uL Hemoglobin 14.2 12.2-16.2 g/dL Hematocrit 41.6 36.0-46.0 % Mean Corpuscular Volume 96.7 80.0-100.0 fL Mean Corpuscular Hemoglobin 33.1 H 28.0-32.0 pg Mean Corpuscular Hemoglobin Concent 34.2 32.0-36.0 g/dL Red Cell Distribution Width 13.1 11.8-14.3 % Platelet Count 198 140-450 10^3/uL Mean Platelet Volume 8.7 6.9-10.8 fL Neutrophils (%) (Auto) 59.9 37.0-80.0 % Lymphocytes (%) (Auto) 33.1 10.0-50.0 % Monocytes (%) (Auto) 4.7 0.0-12.0 % Eosinophils (%) (Auto) 1.5 0.0-7.0 % Basophils (%) (Auto) 0.8 0.0-2.0 % Neutrophils # (Auto) 5.8 1.6-8.6 10 ^3/uL Lymphocytes # (Auto) 3.2 0.4-5.4 10 ^3/uL Monocytes # (Auto) 0.5 0-1.3 10 ^3/uL Eosinophils # (Auto) 0.1 0-0.8 10 ^3/uL Basophils # (Auto) 0.1 0-0.2 10 ^3/uL Nucleated Red Blood Cells 0.1 % Sodium Level 139 136-145 mmol/L Potassium Level 3.9 3.5-5.1 mmol/L Chloride Level 105 98-107 mmol/L Carbon Dioxide Level 27 20-31 mmol/L Anion Gap 7 5-15 Blood Urea Nitrogen 17 9-23 mg/dL Creatinine 0.81 0.550-1.02 mg/dL Glomerular Filtration Rate Calc 90 >90 mL/min BUN/Creatinine Ratio 21.0 H 10.0-20.0 Serum Glucose 85 74-106 mg/dL Lactic Acid Level 0.8 0.4-2.0 mmol/L Calcium Level 9.7 8.7-10.4 mg/dL Total Bilirubin 0.4 0.2-1.0 mg/dL Aspartate Amino Transferase (AST) 15 13-40 U/L Alanine Aminotransferase (ALT) 29 7-40 U/L Alkaline Phosphatase 110 46-116 U/L Total Protein 7.2 5.7-8.2 g/dL Albumin 4.5 3.2-4.8 g/dL Lipase 51 12-53 U/L Urine Color Colorless Yellow Urine Clarity Turbid H Clear Urine pH 6.0 5.0-9.0 Urine Specific [place] 1.021 1.001-1.035 Urine Protein Negative Negative Urine Ketones Negative Negative Urine Blood 2+ H Negative /uL Urine Nitrite Negative Negative Urine Bilirubin Negative Negative Urine Urobilinogen 2 H Negative mg/dL Urine Leukocyte Esterase 3+ Negative /uL Urine RBC 44 0 - 4 /hpf Urine WBC 235 0 - 5 /hpf Urine Squamous Epithelial Cells Few <5 /hpf Urine Bacteria Few H None Seen /hpf Urine Yeast (Budding) Moderate None Seen /hpf Urine Glucose Normal Normal mg/dL Time of 1ST Reevaluation: 15:32 Reevaluation 1ST: Unchanged Patient Education/Counseling: Diagnosis, Treatment Family Education/Counseling: No Family Present Departure 1 Departure Time of Disposition: 17:34 Impression: Primary Impression: Urinary tract infection Disposition: 01 HOME / SELF CARE / HOMELESS Condition: Stable Additional Instructions: Additional discharge instructions: You MUST follow-up with your primary care/family doctor in 1 to 2 days. If you are unable to see your primary care/family doctor, please return to our emergency room for re-assessment and re-evaluation in 1 to 2 days. Return to the emergency room here in our facility or to the nearest ER [facility] if your symptoms change or worsen. CONSULTATIONS: you MUST Follow-up for consultation as soon as possible with: -urology and OB Gyne doctor in 1-2 days. Please call for appointment. You MUST call the consultants office yourself to make an appointment. You may need to arrange that through your insurance and/or your primary/family doctor. If you are unable to see the continuous improvement consultant in 1 to 2 days, you must return to our emergency room (or any other ER of your choice) for re-assessment and re- evaluation. Adequate fluid hydration. e-Prescriptions Nitrofurantoin Monohydrate Mac (Macrobid) 100 Mg Cap 100 MG PO BID for 7 Days, #14 CAP Prov: DONAVON HYDE DO 01/24/24 Discharged With: Self Critical Care Note Critical Care Time?: No I personally scribed for DONAVON HYDE DO ([email or web address]) on 01/24/24 at 15:41. Electronically submitted by Narinder Villegas ([email or web address]). DONAVON HYDE DO Jan 24, 2024 15:41
[2024-01-24 15:54] LABS: Basophils # (auto) 0.1 10 ^3/uL (0-0.2); Basophils % (auto) 0.8 % (0.0-2.0); Eosinophils # (auto) 0.1 10 ^3/uL (0-0.8); Eosinophils % (auto) 1.5 % (0.0-7.0); Hematocrit 41.6 % (36.0-46.0); Hemoglobin 14.2 g/dL (12.2-16.2); Lymphocytes # (auto) 3.2 10 ^3/uL (0.4-5.4); Lymphocytes % (auto) 33.1 % (10.0-50.0); Mean Corpuscular Hemoglobin 33.1 pg (28.0-32.0); Mean Corpuscular Hgb Conc. 34.2 g/dL (32.0-36.0); Mean Corpuscular Volume 96.7 fL (80.0-100.0); Monocytes # (auto) 0.5 10 ^3/uL (0-1.3); Monocytes % (auto) 4.7 % (0.0-12.0); Neutrophils # (auto) 5.8 10 ^3/uL (1.6-8.6); Neutrophils % (auto) 59.9 % (37.0-80.0); Nucleated Red Blood Cells % 0.1 %; Platelet Count (auto) 198 10^3/uL (140-450); Red Cell Distribution Width 13.1 % (11.8-14.3); White Blood Cell 9.7 10^3/uL (4.4-10.8)
[2024-01-24 15:58] LABS: Urine Bacteria FEW /hpf (None Seen); Urine Blood 2+ /uL (Negative); Urine Budding Yeast MODERATE /hpf (None Seen); Urine Clarity Turbid (Clear); Urine Color Colorless (Yellow); Urine Protein, UAD Negative (Negative); Urine Specific Gravity 1.021 (1.001-1.035); Urine Urobilinogen 2 mg/dL (Negative); Urine WBC 235 /hpf (0 - 5)
[2024-01-24 16:10] LABS: Alanine Aminotransferase 29 U/L (7-40); Albumin 4.5 g/dL (3.2-4.8); Alkaline Phosphatase 110 U/L (46-116); Anion Gap 7 (5-15); Aspartate Aminotransferase 15 U/L (13-40); Bilirubin, Total 0.4 mg/dL (0.2-1.0); Blood Urea Nitrogen 17 mg/dL (9-23); Calcium 9.7 mg/dL (8.7-10.4); Carbon Dioxide 27 mmol/L (20-31); Chloride 105 mmol/L (98-107); Glucose 85 mg/dL (74-106); Potassium 3.9 mmol/L (3.5-5.1); Sodium 139 mmol/L (136-145); Total Protein 7.2 g/dL (5.7-8.2)
[2024-01-24 16:20] LABS: Lipase 51 U/L (12-53)
[2024-01-24] MEDS ORDERED: NITR-87 PO (17:35)
[2024-01-24] MEDS ORDERED: cefTRIAXone 1GM/50ML D5W 50 ML IV ONE (17:45)
[2024-01-24 19:29] VITALS: BP 131/78; PULSE 74; RESP 20; TEMP 98.1; O2SAT 96
[2024-01-24] MEDS: cefTRIAXone SOD 1,000 MG VL IM ONE (19:29)
== END 2024-01-24 19:32 | disposition home or self-care (01) ==
LOC: ER 14:56
DX: N39.0 Urinary tract infection, site not specified (principal); Z90.49 Acquired absence of other specified parts of digestive tract; Z90.710 Acquired absence of both cervix and uterus; Z98.890 Other specified postprocedural states
CPT/HCPCS: 36415; 80053; 81001; 83605; 83690; 85025; 96372; 99283; J0696

== ENCOUNTER 2024-04-21 16:23 | Emergency (ER) | payer BC ==
[~2024-04-21] VITALS: Ht 162.6 cm; Wt 74.6 kg
[~2024-04-21 16:23] MED LIST changes: +NITR-87 PO
[2024-04-21 17:54] LABS: Urine Bacteria None Seen /hpf (None Seen)
[2024-04-21 18:31] LABS: Urine Blood 3+ /uL (Negative); Urine Clarity Ex.Turbid (Clear); Urine Color Dark-Brown (Yellow); Urine Protein, UAD 2+ (Negative); Urine Specific Gravity 1.017 (1.001-1.035); Urine Squamous Epithelial Cell None Seen /hpf (<5); Urine Urobilinogen Normal (Negative); Urine WBC 469 /HPF (0-5); Urine pH 5.5 (5.0-9.0)
[2024-04-21] MEDS: KETOROLAC TROMETH 60MG/2ML VIAL IM ONE (18:55)
[2024-04-21 18:57] VITALS: BP 116/87; PULSE 98; RESP 19; TEMP 98.7; O2SAT 97
--- NOTE | 2024-04-21 19:11 | ED.PDOC ---
Back pain HPI HPI Comments [age] old female presents to the ED chief complaint back pain. Patient reports pain started this a.m. she notes woke up with right to mid lower back pain 8/10 on pain scale achy sharp shooting at times has taken [id number] medications with little relief. Reports dark urine over the past 24 hours denies fever, chills, nausea, vomiting, abdominal pain, numbness, weakness. Chief Complaint: Back Pain Time Seen by MD: 18:13 Primary Care Provider: SELENE Reviewed Notes: Nurses Notes, Medications, Allergies Allergies: Coded Allergies: NO KNOWN ALLERGIES (Unverified , 01/10/19) Home Meds Active Scripts Sulfamethoxazole W/Trimethopri (Bactrim Ds Tablet) 1 Tab Tb, 1 TAB PO BID for 5 Days, #10 TAB Prov:YUDITH DIA FARM EQUIPMENT SERVICE TECHNICIAN 04/21/24 Nitrofurantoin Monohydrate Mac (Macrobid) 100 Mg Cap, 100 MG PO BID for 7 Days, #14 CAP Prov:DONAVON HYDE DO 01/24/24 Naproxen (NAPROSYN TABLET) 500 Mg Tb, 1 TAB PO BID for 10 Days, #20 TAB 1 Refill Prov:QURESHINATHALY Mony DO 11/10/23 Docusate Sodium (Docusate Sodium) 100 Mg Cap, 100 MG PO BID for 5 Days, #10 CAP Prov:QURESHINATHALY Mony DO 11/10/23 Cephalexin (KEFLEX CAPSULE) 250 Mg Cp, 2 CAP PO BID, #20 CAP Prov:TITUSNATHALY Mony DO 11/10/23 Cyclobenzaprine Hcl (Cyclobenzaprine Hcl) 10 Mg Tab, 1 TAB PO Q8HPRN PRN, #15 TAB As needed for muscle spasm Prov:PATTI WEBER Q BLOCKER AND POLISHER GOLD WHEEL 02/28/23 Dicyclomine Hcl (Dicyclomine Hcl) 20 Mg Tab, 20 MG PO TID, #30 TAB Prov:MARIO HOOPER PA 04/18/21 Reported Medications Rosuvastatin Calcium (Crestor) 20 Mg Tab, 25 MG PO DAILY, TAB 11/06/23 Trazodone Hcl (Trazodone Hcl) 100 Mg Tab, 100 MG PO HS, MG 06/07/21 Dicyclomine Hcl (BENTYL CAPSULE) 10 Mg Cp, 1 CAP PO BID, #90 CAP 11 Refills 06/07/21 Information Source: Patient Mode of Arrival: Ambulatory Past Medical History PAST MEDICAL HISTORY: Asthma Surgical History: Cholecystectomy, Hysterectomy LUMP ROLLER History: No Pertinent LUMP ROLLER History Family History Family History: Family hx of DM Social History Smoker: Non-Smoker Alcohol: Denies ETOH Use Drugs: Denies Drug Use Lives In: Home Constitutional: denies: chills, diaphoresis, fatigue, fever, malaise, sweats, weakness, others EENTM: denies: blurred vision, double vision, ear bleeding, ear discharge, ear drainage, ear pain, ear ringing, eye pain, eye redness, hearing loss, mouth p ain, mouth swelling, nasal discharge, nose bleeding, nose congestion, nose pain, photophobia, tearing, throat pain, throat swelling, voice changes, others Respiratory: denies: cough, hemoptysis, orthopnea, SOB at rest, shortness of br eath, SOB with excertion, stridor, wheezing, others Cardiovascular: denies: chest pain, dizzy spells, diaphoresis, Dyspnea on exertion, edema, irregular heart beat, left arm pain, lightheadedness, palpitations, PND, syncope, others Gastrointestinal: denies: abdomen distended, abdominal pain, blood streaked bowels, constipated, diarrhea, dysphagia, difficulty swallowing, hematemesis, melena, nausea, poor appetite, poor fluid intake, rectal bleeding, rectal pain, vomiting, others Genitourinary: reports: others (Dark urine); denies: abnormal vagina bleeding, burning, dyspareunia, dysuria, flank pain, frequency, hematuria, incontinence, pain, , vagina discharge, urgency Neurological: denies: dizziness, fainting, headache, left sided numbness, left sided weakness, numbness, paresthesia, pre-existing deficit, right sided numbness, right sided weakness, seizure, speech problems, tingling, tremors, wea kness, others Musculoskeletal: denies: back pain, gout, joint pain, joint swelling, muscle pain, muscle stiffness, neck pain, others Integumetry: denies: bruises, change in color, change in hair/nails, dryness, l aceration, lesions, lumps, rash, wounds, others Allergic/Immunocompromised: denies: Difficulty Healing, Frequent Infections, Hives, Itching, others Hematologic/Lymphatic: denies: anemia, blood clots, easy bleeding, easy bruising, swollen glands, others Endocrine: denies: excessive hunger, excessive sweating, excessive thirst, excessive urination, flushing, intolerance to cold, intolerance to heat, unexplained weight gain, unexplained weight loss, others Psychiatric: denies: anxiety, bipolar disorder, depression, hopeless, panic disorder, schizophrenia, sleepless, suicidal, others Physical Exam General Appearance: No Apparent Distress, Normal HEENT: Normal ENT Inspection, Pharynx Normal, TMs Normal Neck: Full Range of Motion, Non-Tender Respiratory: Chest Non-Tender, Lungs Clear, No Accessory Muscle Use, No Respiratory Distress, Normal Breath Sounds Cardiovascular: No Edema, No JVD, No Murmur, No Gallop, Normal Peripheral Pulses, Regular Rate/Rhythm Breast Exam: Deferred Gastrointestinal: No Organomegaly, Non Tender, No Pulsatile Mass, Normal Bowel Sounds, Soft, Other (Negative CVA tenderness) Genitalia: Deferred Pelvic: Deferred Rectal: Deferred Extremities: No calf tenderness, Normal capillary refill, Normal inspection, Normal range of motion, Non-tender, No pedal edema Musculoskeletal : Apperance: Normal Neurologic: Alert, bureau director II-XII nml as Tested, No Motor Deficits, Normal Affect, Normal Mood, No Sensory Deficits Cerebellar Function: Normal Reflexes: Normal Skin: Dry, Normal Color, Warm Lymphatic: No Adenopathy Was a procedure done? Was a procedure done?: No Back Pain Differential Dx Differential Diagnosis: Musculoskeletal Pain, Urinary Obstruction, Urolithiasis X-Ray, Labs, Meds, VS Vital Signs Date Time Temp Pulse Resp B/P (MAP) Pulse Ox O2 Delivery O2 Flow Rate FiO2 04/21/24 18:57 98 19 97 Room Air 04/21/24 18:57 98.7 98 19 116/87 (97) 97 98.7 04/21/24 16:48 98.8 95 16 142/91 (108) 100 98.8 Lab Test 04/21/24 16:56 Range/Units Urine Color Dark-brown Yellow Urine Clarity Ex.turbid Clear Urine pH 5.5 5.0-9.0 Urine Specific [place] 1.017 1.001-1.035 Urine Protein 2+ H Negative Urine Ketones Negative Negative Urine Blood 3+ H Negative /uL Urine Nitrite Negative Negative Urine Bilirubin Negative Negative Urine Urobilinogen Normal Negative mg/dL Urine Leukocyte Esterase 3+ Negative /uL Urine RBC 9147 0 - 4 /hpf Urine Microscopic WBC 469 H 0-5 /HPF Urine Squamous Epithelial Cells None seen <5 /hpf Urine Bacteria None seen None Seen /hpf Urine Glucose Normal Normal mg/dL Current Medications Medications (Trade) Dose Ordered Sig/Liane Route Start Time Stop Time Status Last Admin Ketorolac Tromethamine (Toradol Injection) 60 mg ONCE ONCE IM 04/21/24 19:00 04/21/24 19:01 DC 04/21/24 18:55 X-Ray, Labs, Meds, VS Comment CT ABDOMEN AND PELVIS SHOWS NO ACUTE FINDINGS. UA POSITIVE FOR RBCS, WBCS, LEUKOCYTE ESTERASE, LIKELY BACTERIAL WE WILL TREAT WITH BACTRIM TWICE DAILY X5 D AYS SCRIPT TO THE PHARMACY. SIDE EFFECTS AND DOSING DISCUSSED. REST INCREASE P.O. FLUIDS WITH ELECTROLYTES. FOLLOW UP WITH YOUR PCP IN 2-3 DAYS NECESSARY. ER RETURN PRECAUTIONS GIVEN PATIENT INDICATES UNDERSTANDING AND AGREES WITH DISCHARGE PLAN OF CARE. Time of 1ST Reevaluation: 19:55 Reevaluation 1ST: Improved Patient Education/Counseling: Diagnosis, Treatment, Prognosis, Need For Follow Up Family Education/Counseling: No Family Present Departure 1 Departure Time of Disposition: 19:58 Impression: Primary Impression: Cystitis with hematuria Disposition: HOME / SELF CARE / HOMELESS Condition: Stable e-Prescriptions Sulfamethoxazole W/Trimethopri (Bactrim Ds Tablet) 1 Tab Tb 1 TAB PO BID for 5 Days, #10 TAB Prov: YUDITH DIA 04/21/24 Discharged With: Self Critical Care Note Critical Care Time?: No Stability Stability form required: YUDITH Finley Apr 21, 2024 19:11
--- NOTE | 2024-04-21 19:52 | DVH ---
Exam: CT CT AB PEL WO CON-NO ORAL OR IV History: right flank pain r/o renal calculi Comparison Study: CT CT AB PEL WO CON-NO ORAL OR IV on DOS: 11/06/23, CT ABD PELVIS WO CONTRAST on DO S: 06/06/21 Technique: Multidetector spiral CT of the abdomen was performed from lung bases to pubic symphysis. Imaging was performed without IV contrast. Axial, coronal and sagittal multiplanar reformats were ob tained from the axial data set by the technologist. Radiation Dose : 1. Abdomen/Pelvis: CTDIvol 13.16 mGy, DLP 707.76 mGy*cm. Findings: Evaluation of solid organs is limited due to lack of intravenous contrast use. Lung Bases: No abnormality demonstrated. Liver: Liver is normal in size. No focal lesions noted. Gallbladder and Biliary Tree: Cholecystectomy. No evidence of biliary ductal dilatation. Spleen: No abnormality demonstrated. Pancreas: No abnormality demonstrated. Adrenal Glands: No abnormality demonstrated. Kidneys: No abnormality demonstrated. No renal calculus or hydroureteronephrosis. Bladder: Grossly unremarkable for degree of distention. Bowel: Stomach appears grossly unremarkable. No abnormally dilated or thick-walled loops of large or small bowel noted. Left-sided colonic diverticulosis without evidence of acute diverticulitis. Append ix is not visualized and has likely been removed. Ascites: Absent Lymphadenopathy: No evidence of lymphadenopathy. Abdominal Wall and Mesentery: Unremarkable. Vasculature: Unremarkable. Pelvic Organs: Unremarkable. Musculoskeletal: No bony lesions or fracture. IMPRESSION: No acute abnormality demonstrated. Radiation optimization: All CT scans at this facility use at least one of these dose optimization antonio hniques: automated exposure control mA and/or kV adjustment per patient size (includes targeted exam s where dose is matched to clinical indication) or iterative reconstruction.
[2024-04-21] MEDS ORDERED: BACDST PO (19:58)
== END 2024-04-21 20:05 | disposition home or self-care (01) ==
LOC: ER 16:23
DX: N30.91 Cystitis, unspecified with hematuria (principal); J45.909 Unspecified asthma, uncomplicated; Z79.899 Other long term (current) drug therapy; Z90.49 Acquired absence of other specified parts of digestive tract; Z90.710 Acquired absence of both cervix and uterus
CPT/HCPCS: 74176; 81001; 96372; 99285; J1885

== ENCOUNTER 2024-05-25 04:10 | Inpatient (IN) | payer BC ==
[~2024-05-25] VITALS: Ht 154.9 cm; Wt 77.0 kg
[2024-05-25 04:39] LABS: Urine Bacteria None Seen /hpf (None Seen)
--- NOTE | 2024-05-25 04:40 | ED.PDOC ---
General HPI Comments 48 year old female presents to the ED with a chief complaint of RT flank pain onset today around 01:00. Patient states she woke up around 01:00 and began experiencing RT flank pain radiated to abdomen as well as nausea. Patient rates pain 8/, was seen at [facility] for UTI 1 month ago. PMHx UTI, diverticulitis. Denies dysuria, hematuria, fever, chills, vomiting, diarrhea, headache, dizziness. No other symptoms or modifying factors present at this time. Chief Complaint: Flank Pain Time Seen by MD: 04:23 Primary Care Provider: SELENE Greenberg notes: Medications, Allergies Allergies: Coded Allergies: NO KNOWN ALLERGIES (Unverified , 01/10/19) Home Meds Active Scripts Nitrofurantoin Monohydrate Mac (Macrobid) 100 Mg Cap, 100 MG PO BID for 7 Days, #14 CAP Prov:DONAVON HYDE DO 01/24/24 Naproxen (NAPROSYN TABLET) 500 Mg Tb, 1 TAB PO BID for 10 Days, #20 TAB 1 Refill Prov:QURESHINATHALY Mony DO 11/10/23 Docusate Sodium (Docusate Sodium) 100 Mg Cap, 100 MG PO BID for 5 Days, #10 CAP Prov:QURESHINATHALY Mony DO 11/10/23 Cephalexin (KEFLEX CAPSULE) 250 Mg Cp, 2 CAP PO BID, #20 CAP Prov:NATHALY QURESHI DO 11/10/23 Cyclobenzaprine Hcl (Cyclobenzaprine Hcl) 10 Mg Tab, 1 TAB PO Q8HPRN PRN, #15 TAB As needed for muscle spasm Prov:PATTI WEBER SUPERVISOR WET END 02/28/23 Dicyclomine Hcl (Dicyclomine Hcl) 20 Mg Tab, 20 MG PO TID, #30 TAB Prov:MARIO HOOPER PA 04/18/21 Reported Medications Rosuvastatin Calcium (Crestor) 20 Mg Tab, 25 MG PO DAILY, TAB 11/06/23 Trazodone Hcl (Trazodone Hcl) 100 Mg Tab, 100 MG PO HS, MG 06/07/21 Dicyclomine Hcl (BENTYL CAPSULE) 10 Mg Cp, 1 CAP PO BID, #90 CAP 11 Refills 06/07/21 Information Source: Patient Mode of Arrival: Ambulatory Severity: Moderate Timing: Hours Duration: Since onset Prehospital treatment: None Onset: Spontaneous Symptoms: Other (flank pain) History of: UTI Location: (R) Flank Modifying factors: None associated signs and symptoms: Nausea, Flank Pain Past Medical History PAST MEDICAL HISTORY: Asthma, UTI'S Past Medical History (Other): Diverticulitis Surgical History: Appendectomy, Cholecystectomy, Hysterectomy BEHAVIORAL INTERVENTION SPECIALIST History: No Pertinent BEHAVIORAL INTERVENTION SPECIALIST History Family History Family History: Family hx of DM Social History Smoker: Non-Smoker Alcohol: Denies ETOH Use Drugs: Denies Drug Use Lives In: Home X-Ray, Labs, Meds, VS Vital Signs Date Time Temp Pulse Resp B/P (MAP) Pulse Ox O2 Delivery O2 Flow Rate FiO2 05/25/24 04:23 98.0 77 16 140/82 (101) 99 98.0 Lab Test 05/25/24 04:39 Range/Units Urine Color Pending Urine Clarity Pending Urine pH Pending Urine Specific [place] Pending Urine Protein Pending Urine Ketones Pending Urine Blood Pending Urine Nitrite Pending Urine Bilirubin Pending Urine Urobilinogen Pending Urine Leukocyte Esterase Pending Urine RBC Pending Urine Microscopic WBC Pending Urine Squamous Epithelial Cells Pending Urine Bacteria Pending Urine Glucose Pending Time of 1ST Reevaluation: 04:55 Reevaluation 1ST: Unchanged Patient Education/Counseling: Need For Follow Up Family Education/Counseling: No Family Present Critical Care Note Critical Care Time?: No Stability Stability form required: No I personally scribed for HANANE MELENDEZ MD ([email or web address]) on 05/25/24 at 04:40. Electronically submitted by Kandis Piper ([email or web address]). I personally scribed for HANANE MELENDEZ MD ([email or web address]) on 05/25/24 at 04:43. Electronically submitted by Kandis Piper ([email or web address]). HANANE MELENDEZ MD May 25, 2024 04:40
--- NOTE | 2024-05-25 04:44 | ED.PDOC ---
General HPI Comments 48 year old female presents to the ED with a chief complaint of RT flank pain onset today around 01:00. Patient states she woke up around 01:00 and began experiencing RT flank pain radiated to abdomen as well as nausea. Patient rates pain 8/, was seen at [facility] for UTI 1 month ago. PMHx UTI, diverticulitis. Denies dysuria, hematuria, fever, chills, vomiting, diarrhea, headache, dizziness. No other symptoms or modifying factors present at this time. Chief Complaint: Flank Pain Time Seen by MD: 04:23 Primary Care Provider: SELENE Greenberg notes: Medications, Allergies Allergies: Coded Allergies: NO KNOWN ALLERGIES (Unverified , 01/10/19) Home Meds Active Scripts Nitrofurantoin Monohydrate Mac (Macrobid) 100 Mg Cap, 100 MG PO BID for 7 Days, #14 CAP Prov:DONAVON HYDE DO 01/24/24 Naproxen (NAPROSYN TABLET) 500 Mg Tb, 1 TAB PO BID for 10 Days, #20 TAB 1 Refill Prov:QURESHINATHALY Mony DO 11/10/23 Docusate Sodium (Docusate Sodium) 100 Mg Cap, 100 MG PO BID for 5 Days, #10 CAP Prov:QURESHINATHALY Mony DO 11/10/23 Cephalexin (KEFLEX CAPSULE) 250 Mg Cp, 2 CAP PO BID, #20 CAP Prov:NATHALY QURESHI DO 11/10/23 Cyclobenzaprine Hcl (Cyclobenzaprine Hcl) 10 Mg Tab, 1 TAB PO Q8HPRN PRN, #15 TAB As needed for muscle spasm Prov:PATTI WEBER RESIDENT MEDICAL OFFICER 02/28/23 Dicyclomine Hcl (Dicyclomine Hcl) 20 Mg Tab, 20 MG PO TID, #30 TAB Prov:MARIO HOOPER PA 04/18/21 Reported Medications Rosuvastatin Calcium (Crestor) 20 Mg Tab, 25 MG PO DAILY, TAB 11/06/23 Trazodone Hcl (Trazodone Hcl) 100 Mg Tab, 100 MG PO HS, MG 06/07/21 Dicyclomine Hcl (BENTYL CAPSULE) 10 Mg Cp, 1 CAP PO BID, #90 CAP 11 Refills 06/07/21 Information Source: Patient Mode of Arrival: Ambulatory Severity: Moderate Timing: Hours Duration: Since onset Prehospital treatment: None Onset: Spontaneous Symptoms: Other (RT flank pain) History of: UTI Location: (R) Flank Modifying factors: None associated signs and symptoms: Nausea, Flank Pain Vital Signs Vital Signs Date Time Temp Pulse Resp B/P (MAP) Pulse Ox O2 Delivery O2 Flow Rate FiO2 05/25/24 05:52 77 12 98 Room Air* 0 21 05/25/24 05:39 99.0 153/86 (108) 99.0 Physical Exam General: Awake, alert and oriented. No acute distress. Skin: Skin in warm, dry and intact. Appropriate color for ethnicity. HEENT: The head is normocephalic and atraumatic. Conjunctivae are clear without exudates or hemorrhage. Sclera is non-icteric. EOM are intact. No signs of nyst agmus. Eyelids are normal in appearance without swelling or lesions. Oral mucosa is pink and moist Neck: The neck is supple with normal range of motion. No JVD. Cardiac: Heart rate and rhythm are normal. No murmurs, gallops, or rubs are auscultated. Respiratory: No signs of respiratory distress. Lung sounds are clear in all lobes bilaterally without rales, rhonchi, or wheezes. Abdominal: Abdomen is soft, right upper quadrant and right flank tenderness with guarding. Bowel sounds are present and normoactive in all four quadrants. No CVA tenderness. Neurological: The patient is awake, alert and oriented to person, place, and t georges with normal speech. Speech is clear. There is no facial asymmetry. Normal gait. Psychiatric: Appropriate mood and affect. Good judgement and insight. Review of Systems: REVIEW OF SYSTEMS: As Stated in HPI Past Medical History PAST MEDICAL HISTORY: Asthma, UTI'S Past Medical History (Other): Diverticulitis Surgical History: Appendectomy, Cholecystectomy, Hysterectomy ORTHOPAEDIC PHYSICIAN ASSISTANT History: No Pertinent ORTHOPAEDIC PHYSICIAN ASSISTANT History Family History Family History: Family hx of DM Social History Smoker: Non-Smoker Alcohol: Denies ETOH Use Drugs: Denies Drug Use Lives In: Home Was a procedure done? Was a procedure done?: No Differential Diagnosis Kidney stone (Female): Other (Differential diagnoses considered include: Abdominal aortic aneurysm, DC, esophageal rupture, intestinal obstruction, mesenteric ischemia, perforated viscus or solid organ rupture, CHF with hepatomegaly, pneumonia, abscess, appendicitis, biliary disease, diverticulitis, gastritis, gastroenteritis, hepatitis, hernia, inflammatory bowel disease, pancreatitis, peptic ulcer disease, urinary tract infection, ureteral colic, constipation, GERD, irritable syndrome, abdominal wall pain, nonspecific abdominal pain, herpes zoster. ) X-Ray, Labs, Meds, VS Vital Signs Date Time Temp Pulse Resp B/P (MAP) Pulse Ox O2 Delivery O2 Flow Rate FiO2 05/25/24 05:52 77 12 98 Room Air* 0 21 05/25/24 05:39 99.0 77 12 153/86 (108) 98 99.0 05/25/24 04:23 98.0 77 16 140/82 (101) 99 98.0 Lab Test 05/25/24 04:49 05/25/24 04:39 Range/Units White Blood Count 10.1 4.4-10.8 10^3/uL Red Blood Count 4.16 4.0-5.20 10^6/uL Hemoglobin 13.9 12.2-16.2 g/dL Hematocrit 40.0 36.0-46.0 % Mean Corpuscular Volume 96.1 80.0-100.0 fL Mean Corpuscular Hemoglobin 33.5 H 28.0-32.0 pg Mean Corpuscular Hemoglobin Concent 34.8 32.0-36.0 g/dL Red Cell Distribution Width 12.6 11.8-14.3 % Platelet Count 174 140-450 10^3/uL Mean Platelet Volume 9.0 6.9-10.8 fL Neutrophils (%) (Auto) 77.5 37.0-80.0 % Lymphocytes (%) (Auto) 17.8 10.0-50.0 % Monocytes (%) (Auto) 2.8 0.0-12.0 % Eosinophils (%) (Auto) 1.2 0.0-7.0 % Basophils (%) (Auto) 0.7 0.0-2.0 % Neutrophils # (Auto) 7.8 1.6-8.6 10 ^3/uL Lymphocytes # (Auto) 1.8 0.4-5.4 10 ^3/uL Monocytes # (Auto) 0.3 0-1.3 10 ^3/uL Eosinophils # (Auto) 0.1 0-0.8 10 ^3/uL Basophils # (Auto) 0.1 0-0.2 10 ^3/uL Nucleated Red Blood Cells 0.0 % Sodium Level 141 136-145 mmol/L Potassium Level 3.8 3.5-5.1 mmol/L Chloride Level 108 H 98-107 mmol/L Carbon Dioxide Level 24 20-31 mmol/L Anion Gap 9 5-15 Blood Urea Nitrogen 15 9-23 mg/dL Creatinine 0.73 0.550-1.02 mg/dL Glomerular Filtration Rate Calc 102 >90 mL/min BUN/Creatinine Ratio 20.5 H 10.0-20.0 Serum Glucose 107 H 74-106 mg/dL Lactic Acid Level 1.7 0.4-2.0 mmol/L Calcium Level 9.5 8.7-10.4 mg/dL Total Bilirubin 0.4 0.2-1.0 mg/dL Aspartate Amino Transferase (AST) 12 L 13-40 U/L Alanine Aminotransferase (ALT) 23 7-40 U/L Alkaline Phosphatase 93 46-116 U/L Total Protein 7.4 5.7-8.2 g/dL Albumin 4.7 3.2-4.8 g/dL Lipase 65 H 12-53 U/L Urine Color Yellow Yellow Urine Clarity Clear Clear Urine pH 5.0 5.0-9.0 Urine Specific [place] 1.027 1.001-1.035 Urine Protein Negative Negative Urine Ketones Negative Negative Urine Blood Trace H Negative /uL Urine Nitrite Negative Negative Urine Bilirubin Negative Negative Urine Urobilinogen Normal Negative mg/dL Urine Leukocyte Esterase Negative Negative /uL Urine RBC <1 0 - 4 /hpf Urine Microscopic WBC < 1 0-5 /HPF Urine Squamous Epithelial Cells None seen <5 /hpf Urine Bacteria None seen None Seen /hpf Urine Mucus Few None Seen Urine Glucose Normal Normal mg/dL Current Medications Medications (Trade) Dose Ordered Sig/Liane Route Start Time Stop Time Status Last Admin Ketorolac Tromethamine (Toradol Injection) 30 mg ONCE ONCE IM 05/25/24 04:45 05/25/24 04:46 DC 05/25/24 05:39 Acetaminophen/ Hydrocodone Bitart ([place] 10/325MG Tab) 1 tab ONCE ONCE PO 05/25/24 04:45 05/25/24 04:46 DC 05/25/24 05:38 Ondansetron HCl (Zofran Po) 4 mg ONCE ONCE PO 05/25/24 05:45 05/25/24 05:46 DC 05/25/24 05:51 Patient alert. Complaining of abdominal pain. Lipase elevated pain Vitals stable. Answering questions. Was given pain medication. Continues to have pain. Reviewed her history. Explained to the patient. Continue monitoring. Time of 1ST Reevaluation: 04:55 Reevaluation 1ST: Unchanged Patient Education/Counseling: Need For Follow Up Family Education/Counseling: No Family Present Departure 1 Departure Time of Disposition: 07:11 Impression: Primary Impression: Intractable abdominal pain Additional Impression: Acute pancreatitis Qualified Codes: K85.90 - Acute pancreatitis without necrosis or infection, unspecified Disposition: 09 ADMITTED INPATIENT Admit to: Med Surg Condition: Guarded Critical Care Note Critical Care Time?: No Stability Stability form required: No Heart Score Heart Score: Heart Score Response (Comments) Value History N/A 0 EKG N/A 0 Age N/A 0 Risk Factors N/A 0 Troponin N/A 0 Total 0 I personally scribed for HANANE MELENDEZ MD ([email or web address]) on 05/25/24 at 04:44. Electronically submitted by Kandis Piper ([email or web address]). HANANE MELENDEZ MD May 25, 2024 04:44 LUCERO POON MD May 25, 2024 07:12
[2024-05-25 04:51] LABS: Urine Blood TRACE /uL (Negative); Urine Clarity Clear (Clear); Urine Color Yellow (Yellow); Urine Mucus FEW (None Seen); Urine Protein, UAD Negative (Negative); Urine Specific Gravity 1.027 (1.001-1.035); Urine Squamous Epithelial Cell None Seen /hpf (<5); Urine Urobilinogen Normal (Negative); Urine WBC < 1 /HPF (0-5)
--- NOTE | 2024-05-25 05:24 | DVH ---
EXAM: CT Abdomen and Pelvis Without Intravenous Contrast CLINICAL INDICATION: Right flank pain TECHNIQUE: Axial computed tomography images of the abdomen and pelvis without intravenous contrast. This CT exam was performed using one or more of the following dose reduction techniques: automated exposure control, adjustment of the mA and/or kV according to patient size, and/or use of iterative r econstruction technique. CONTRAST: COMPARISON: CT CT AB PEL WO CON-NO ORAL OR IV on DOS: 04/21/24, CT CT AB PEL WO CON-NO ORAL OR IV on DOS: 11/06/23, CT ABD PELVIS WO CONTRAST on DOS: 06/06/21 FINDINGS: LUNG BASES: Unremarkable. No mass. No consolidation. MEDIASTINUM: Small esophageal hiatal hernia. ABDOMEN: LIVER: Hepatomegaly with fatty infiltration. GALLBLADDER AND BILE DUCTS: Gallbladder is surgically absent. No ductal dilation. PANCREAS: Unremarkable. No ductal dilation. SPLEEN: Unremarkable. No splenomegaly. ADRENALS: Unremarkable. No mass. KIDNEYS AND URETERS: Unremarkable. No obstructing stones. No hydronephrosis. STOMACH AND BOWEL: Fecal retention in the colon consistent with constipation. Colonic diverticulos is without acute diverticulitis. No obstruction. PELVIS: APPENDIX: No findings to suggest acute appendicitis. BLADDER: Unremarkable. No stones. REPRODUCTIVE: Unremarkable as visualized. ABDOMEN and PELVIS: INTRAPERITONEAL SPACE: Unremarkable. No free air. No significant fluid collection. BONES/JOINTS: No acute fracture. No dislocation. SOFT TISSUES: Unremarkable. VASCULATURE: Unremarkable. No abdominal aortic aneurysm. LYMPH NODES: Unremarkable. No enlarged lymph nodes. OTHER FINDINGS: . . IMPRESSION: 1. Small esophageal hiatal hernia. 2. Hepatomegaly with fatty infiltration. 3. Fecal retention in the colon consistent with constipation. 4. Colonic diverticulosis without acute diverticulitis.
[2024-05-25] MEDS: HYDROcodone-ACET 10/325MG TAB PO ONE ×2 (05:38→10:45)
[2024-05-25 05:39] LABS: Basophils # (auto) 0.1 10 ^3/uL (0-0.2); Basophils % (auto) 0.7 % (0.0-2.0); Eosinophils # (auto) 0.1 10 ^3/uL (0-0.8); Eosinophils % (auto) 1.2 % (0.0-7.0); Hemoglobin 13.9 g/dL (12.2-16.2); Lymphocytes # (auto) 1.8 10 ^3/uL (0.4-5.4); Lymphocytes % (auto) 17.8 % (10.0-50.0); Mean Corpuscular Hemoglobin 33.5 pg (28.0-32.0); Mean Corpuscular Hgb Conc. 34.8 g/dL (32.0-36.0); Mean Corpuscular Volume 96.1 fL (80.0-100.0); Monocytes # (auto) 0.3 10 ^3/uL (0-1.3); Monocytes % (auto) 2.8 % (0.0-12.0); Neutrophils # (auto) 7.8 10 ^3/uL (1.6-8.6); Neutrophils % (auto) 77.5 % (37.0-80.0); Platelet Count (auto) 174 10^3/uL (140-450); Red Blood Cells 4.16 10^6/uL (4.0-5.20); Red Cell Distribution Width 12.6 % (11.8-14.3); White Blood Cell 10.1 10^3/uL (4.4-10.8)
[2024-05-25] MEDS: KETOROLAC TROMETH 30 MG/ML 1ML VIAL IM ONE (05:39)
[2024-05-25] MEDS: ONDANSETRON ODT 4 MG TAB PO ONE (05:51)
[2024-05-25 05:52] VITALS: PULSE 77; RESP 12; O2SAT 98
[2024-05-25 05:59] LABS: Alanine Aminotransferase 23 U/L (7-40); Albumin 4.7 g/dL (3.2-4.8); Alkaline Phosphatase 93 U/L (46-116); Anion Gap 9 (5-15); BUN/Creatinine Ratio 20.5 (10.0-20.0); Bilirubin, Total 0.4 mg/dL (0.2-1.0); Blood Urea Nitrogen 15 mg/dL (9-23); Calcium 9.5 mg/dL (8.7-10.4); Carbon Dioxide 24 mmol/L (20-31); Potassium 3.8 mmol/L (3.5-5.1); Sodium 141 mmol/L (136-145); Total Protein 7.4 g/dL (5.7-8.2)
[2024-05-25 06:08] LABS: Aspartate Aminotransferase 12 U/L (13-40); Chloride 108 mmol/L (98-107); Glucose 107 mg/dL (74-106); Lipase 65 U/L (12-53)
[2024-05-25] MEDS ORDERED: PARO1TAB33 PO (09:51)
--- NOTE | 2024-05-25 09:52 | DVHHP2 ---
History of Present Illness Reason for Visit: Right flank pain History of Present Illness Bhavna Pena V is a 48-year-old female with past medical history of asthma, fibroids, UTI, diverticulitis, cholecystectomy, appendectomy, hysterectomy, and abdominoplasty who presents to the ED with right flank pain that radiates to the right with nausea. Patient has reports that the pain is currently 8/10 constant stabbing and pulsating like. She reports that the pain started this morning at 1:00 a.m.. She denies any recent travels, recent trauma or injury, recent ingestion of spoiled food, lightheadedness, weakness, dizziness, chest pain, shortness of breath, vomiting, or diarrhea. Pulmonary: Asthma GI: Other (Diverticulitis) Renal/: UTI Past Medical History Fibroids Past Surgical History: Appendectomy, Cholecystectomy, Hysterectomy, Other (Abdominal plasty) Family History: DM, Hyperlipidemia, Hypertension, Other (Mom and dad with diabetes, hypertension, and hyperlipidemia) Smoke: No ALCOHOL: none Drugs: None Lives: with Family Domestic Violence: Neg Review of Systems Gastrointestinal: Nausea, Other (Flank pain) Allergies: Coded Allergies: NO KNOWN ALLERGIES (Unverified , 01/10/19) Medications Current Medications Medications Dose Ordered Sig/Liane Route Start Time Stop Time Status Last Admin Dose Admin Polyethylene Glycol 17 gm DAILY PO 05/25/24 10:00 UNV Sennosides 8.6 mg HS PO 05/25/24 22:00 UNV Acetaminophen/ Hydrocodone Bitart 1 tab Q4HP PRN PO 05/25/24 09:30 UNV Ondansetron HCl 4 mg Q4HP PRN IV 05/25/24 09:30 UNV Acetaminophen 650 mg Q6HP PRN PO 05/25/24 09:30 UNV Morphine Sulfate 2 mg Q4HPRN PRN IV 05/25/24 09:30 UNV Exam Vital Signs Vital Signs Date Time Temp Pulse Resp B/P (MAP) Pulse Ox O2 Delivery O2 Flow Rate FiO2 05/25/24 09:15 97.6 73 18 144/78 (100) 99 97.6 05/25/24 05:52 Room Air* 0 21 General Appearance: Alert, Oriented X3, Cooperative, No acute distress HEENT: Atraumatic, PERRLA, EOMI, Mucous membr. moist/pink Respiratory: Clear to auscultation, Normal air movement Cardiovascular: Regular rate, Normal S1, Normal S2, No murmurs Abdominal: Soft Extremities: No clubbing, No cyanosis, No edema, Normal pulses, No tenderness/swelling Skin: No significant lesion Neuro: Normal gait, Normal speech, Strength at 5/5 X4 ext, Normal tone, Sensation intact Psych/Mental Status: Mental status NL, Mood NL Labs/Xrays Labs Test 05/25/24 04:49 05/25/24 04:39 Range/Units White Blood Count 10.1 4.4-10.8 10^3/uL Red Blood Count 4.16 4.0-5.20 10^6/uL Hemoglobin 13.9 12.2-16.2 g/dL Hematocrit 40.0 36.0-46.0 % Mean Corpuscular Volume 96.1 80.0-100.0 fL Mean Corpuscular Hemoglobin 33.5 H 28.0-32.0 pg Mean Corpuscular Hemoglobin Concent 34.8 32.0-36.0 g/dL Red Cell Distribution Width 12.6 11.8-14.3 % Platelet Count 174 140-450 10^3/uL Mean Platelet Volume 9.0 6.9-10.8 fL Neutrophils (%) (Auto) 77.5 37.0-80.0 % Lymphocytes (%) (Auto) 17.8 10.0-50.0 % Monocytes (%) (Auto) 2.8 0.0-12.0 % Eosinophils (%) (Auto) 1.2 0.0-7.0 % Basophils (%) (Auto) 0.7 0.0-2.0 % Neutrophils # (Auto) 7.8 1.6-8.6 10 ^3/uL Lymphocytes # (Auto) 1.8 0.4-5.4 10 ^3/uL Monocytes # (Auto) 0.3 0-1.3 10 ^3/uL Eosinophils # (Auto) 0.1 0-0.8 10 ^3/uL Basophils # (Auto) 0.1 0-0.2 10 ^3/uL Nucleated Red Blood Cells 0.0 % Sodium Level 141 136-145 mmol/L Potassium Level 3.8 3.5-5.1 mmol/L Chloride Level 108 H 98-107 mmol/L Carbon Dioxide Level 24 20-31 mmol/L Anion Gap 9 5-15 Blood Urea Nitrogen 15 9-23 mg/dL Creatinine 0.73 0.550-1.02 mg/dL Glomerular Filtration Rate Calc 102 >90 mL/min BUN/Creatinine Ratio 20.5 H 10.0-20.0 Serum Glucose 107 H 74-106 mg/dL Lactic Acid Level 1.7 0.4-2.0 mmol/L Calcium Level 9.5 8.7-10.4 mg/dL Total Bilirubin 0.4 0.2-1.0 mg/dL Aspartate Amino Transferase (AST) 12 L 13-40 U/L Alanine Aminotransferase (ALT) 23 7-40 U/L Alkaline Phosphatase 93 46-116 U/L Total Protein 7.4 5.7-8.2 g/dL Albumin 4.7 3.2-4.8 g/dL Lipase 65 H 12-53 U/L Urine Color Yellow Yellow Urine Clarity Clear Clear Urine pH 5.0 5.0-9.0 Urine Specific [place] 1.027 1.001-1.035 Urine Protein Negative Negative Urine Ketones Negative Negative Urine Blood Trace H Negative /uL Urine Nitrite Negative Negative Urine Bilirubin Negative Negative Urine Urobilinogen Normal Negative mg/dL Urine Leukocyte Esterase Negative Negative /uL Urine RBC <1 0 - 4 /hpf Urine Microscopic WBC < 1 0-5 /HPF Urine Squamous Epithelial Cells None seen <5 /hpf Urine Bacteria None seen None Seen /hpf Urine Mucus Few None Seen Urine Glucose Normal Normal mg/dL EXAM: CT Abdomen and Pelvis Without Intravenous Contrast CLINICAL INDICATION: Right flank pain TECHNIQUE: Axial computed tomography images of the abdomen and pelvis without intravenous contrast. This CT exam was performed using one or more of the following dose reduction techniques: automated exposure control, adjustment of the mA and/or kV according to patient size, and/or use of iterative reconstruction technique. CONTRAST: COMPARISON: CT CT AB PEL WO CON-NO ORAL OR IV on DOS: 04/21/24, CT CT AB PEL WO CON-NO ORAL OR IV on DOS: 11/06/23, CT ABD PELVIS WO CONTRAST on DOS: 06/06/21 FINDINGS: LUNG BASES: Unremarkable. No mass. No consolidation. MEDIASTINUM: Small esophageal hiatal hernia. ABDOMEN: LIVER: Hepatomegaly with fatty infiltration. GALLBLADDER AND BILE DUCTS: Gallbladder is surgically absent. No ductal dilation. PANCREAS: Unremarkable. No ductal dilation. SPLEEN: Unremarkable. No splenomegaly. ADRENALS: Unremarkable. No mass. KIDNEYS AND URETERS: Unremarkable. No obstructing stones. No hydronephrosis. STOMACH AND BOWEL: Fecal retention in the colon consistent with constipation. Colonic diverticulosis without acute diverticulitis. No obstruction. PELVIS: APPENDIX: No findings to suggest acute appendicitis. BLADDER: Unremarkable. No stones. REPRODUCTIVE: Unremarkable as visualized. ABDOMEN and PELVIS: INTRAPERITONEAL SPACE: Unremarkable. No free air. No significant fluid collection. BONES/JOINTS: No acute fracture. No dislocation. SOFT TISSUES: Unremarkable. VASCULATURE: Unremarkable. No abdominal aortic aneurysm. LYMPH NODES: Unremarkable. No enlarged lymph nodes. OTHER FINDINGS: . . IMPRESSION: 1. Small esophageal hiatal hernia. 2. Hepatomegaly with fatty infiltration. 3. Fecal retention in the colon consistent with constipation. 4. Colonic diverticulosis without acute diverticulitis. Assessment/Plan Assessment/Plan Assessment Intractable flank pain with nausea Hyperlipasemia Small esophageal hiatal hernia Hepatomegaly ? Constipation Colonic diverticulosis History of asthma History of fibroids History of UTI History of diverticulitis History of cholecystectomy History of appendectomy History of hysterectomy History of abdominoplasty Plan Admit to med surge Antiemetics Pain management CT abdomen and pelvis noted UA Ultrasound renal Bowel regimen Home medications reconciled DVT prophylaxis-SCDs PUD prophylaxis-Protonix Discussed plan of care with patient and nurse Plan discussed with: Patient My Orders Orders - SHANNON KEY STEAM TRAP WORKER Procedure Category Date Status Time Kidney US 05/25/24 Logged 09:30 Polyethylene Glycol PHA 05/25/24 Logged 17g Powder (Miralax 10:00 Senna Pod Tablet PHA 05/25/24 Logged (Senokot Tablet) 22:00 Admit ADMIT 05/25/24 Transmitted 09:30 Allergies SRINATH 05/25/24 In Process 09:30 Code Status CODE 05/25/24 Transmitted 09:30 Hydrocodone-Acet PHA 05/25/24 Logged 5/325mg Tab ([place] 09:30 Ondansetron Hcl PHA 05/25/24 Logged (Zofran) 09:30 Complete Blood Count LAB 05/26/24 Verified 04:00 Comprehensive LAB 05/26/24 Verified Metabolic Panel 04:00 Cardiac DIET 05/25/24 Transmitted Diet-2gna,Lofat,Lochol Breakfast Acetaminophen Tablet PHA 05/25/24 Logged (Tylenol Tablet) 09:30 Morphine Sulfate PHA 05/25/24 Logged Injection 09:30 Sequential SRINATH 05/25/24 In Process Compression Device Date of Service: May 25, 2024 Billing Provider: SHANNON KEY Common Visit Codes: [id number] INP/OBS CARE (HIGH) SHANNON EKY May 25, 2024 09:52
--- NOTE | 2024-05-25 10:15 | DVH ---
INDICATION: flank pain TECHNIQUE: Multiple real-time sonographic images of the kidneys and bladder were obtained. COMPARISON: None FINDINGS: RIGHT kidney measures 12.3 cm in length. No hydronephrosis. LEFT kidney measures 11.2 cm in length. No hydronephrosis. Bladder is contracted. IMPRESSION: 1. Unremarkable examination.
[2024-05-25] MEDS: POLYETHYLENE GLYCOL 17 GM PWDR PO SCH (10:23)
[2024-05-25] MEDS: PARoxetine 20 MG TAB PO SCH (10:25)
[2024-05-25] MEDS: PANTOPRAZOLE 40 MG/10 ML VIAL INJ IV SCH (10:29)
[2024-05-25] MEDS: ROSUVASTATIN CALCIUM 25 MG PO SCH (12:37)
[2024-05-25] MEDS: MORPHINE SULFATE INJ 2 MG/ml SYRG IV PRN (20:04)
[2024-05-25] MEDS: ONDANSETRON HCL 4 MG/2 ML VIAL IV PRN (20:05)
[2024-05-25] MEDS: SENNA 8.6 MG TAB PO SCH (22:00)
[2024-05-25] MEDS: traZODone HCL 50 MG TAB PO SCH (23:20)
[2024-05-26] VITALS (8 sets, daily range): BP systolic 110–128; BP diastolic 57–73; PULSE 64–86; RESP 16–18; TEMP 97.5–98.3; O2SAT 95–99
[2024-05-26 07:19] LABS: Basophils # (auto) 0 10 ^3/uL (0-0.2); Basophils % (auto) 0.3 % (0.0-2.0); Eosinophils # (auto) 0.1 10 ^3/uL (0-0.8); Eosinophils % (auto) 1.5 % (0.0-7.0); Hematocrit 37.1 % (36.0-46.0); Hemoglobin 12.9 g/dL (12.2-16.2); Lymphocytes # (auto) 2.3 10 ^3/uL (0.4-5.4); Lymphocytes % (auto) 26.5 % (10.0-50.0); Mean Corpuscular Hemoglobin 33.2 pg (28.0-32.0); Mean Corpuscular Hgb Conc. 34.7 g/dL (32.0-36.0); Mean Corpuscular Volume 95.6 fL (80.0-100.0); Monocytes # (auto) 0.5 10 ^3/uL (0-1.3); Monocytes % (auto) 5.7 % (0.0-12.0); Neutrophils # (auto) 5.8 10 ^3/uL (1.6-8.6); Platelet Count (auto) 171 10^3/uL (140-450); Red Blood Cells 3.88 10^6/uL (4.0-5.20); Red Cell Distribution Width 12.7 % (11.8-14.3); White Blood Cell 8.8 10^3/uL (4.4-10.8)
[2024-05-26 07:32] LABS: Alanine Aminotransferase 22 U/L (7-40); Albumin 4.3 g/dL (3.2-4.8); Alkaline Phosphatase 90 U/L (46-116); Anion Gap 8 (5-15); BUN/Creatinine Ratio 19.7 (10.0-20.0); Blood Urea Nitrogen 12 mg/dL (9-23); Calcium 9.6 mg/dL (8.7-10.4); Carbon Dioxide 27 mmol/L (20-31); Chloride 104 mmol/L (98-107); Glucose 85 mg/dL (74-106); Potassium 3.8 mmol/L (3.5-5.1); Sodium 139 mmol/L (136-145); Total Protein 6.8 g/dL (5.7-8.2)
[2024-05-26 07:33] LABS: Aspartate Aminotransferase 10 U/L (13-40)
[2024-05-26] MEDS: HYDROcodone-ACET 5/325MG TAB PO PRN (09:10)
[2024-05-26] MEDS: CYCLOBENZAPRINE HCL 10 MG TAB PO PRN (11:07)
[2024-05-26 11:40] LABS: Hepatitis B Surface Antigen Negative (Negative); Hepatitis C Antibody Negative (Negative)
[2024-05-26] MEDS: LORazepam 2MG/ML-1ML VIAL IV ONE (13:00)
--- NOTE | 2024-05-26 14:12 | DVHPNRES ---
Progress Note Date Seen: May 26, 2024 Resident Creating Document: JUVENTINO JORGE RESIDENT Has the PT tested + for MRSA If YES, has PT been informed?: No Medical Necessity Reason Pt with a Central, PICC or Fol: No Subjective Review of Systems Bhavna Pena V is a 48-year-old female with past medical history of asthma, fibroids, UTI, diverticulitis who presents to the ED with right flank pain that radiates to the right with nausea. Patient has reports that the pain is currently 8/10 constant stabbing and pulsating like. She reports that the pain started yesterday at 1:00 a.m.. She denies any recent travels, recent trauma or injury, recent ingestion of spoiled food, lightheadedness, weakness, dizziness, chest pain, shortness of breath, vomiting, or diarrhea. Patient also stated severe muscle spasms Pulmonary: Asthma GI: Other (Diverticulitis) Renal/: UTI Past Medical History Fibroids Past Surgical History: Appendectomy, Cholecystectomy, Hysterectomy, Other (Abdominal plasty) Family History: DM, Hyperlipidemia, Hypertension, Other (Mom and dad with diabetes, hypertension, and hyperlipidemia) Smoke: No ALCOHOL: none Drugs: None Lives: with Family Domestic Violence: Neg Objective vital signs Vital Sign Date Time Temp Pulse Resp B/P (MAP) Pulse Ox O2 Delivery O2 Flow Rate FiO2 05/26/24 13:00 98.1 78 17 110/60 (77) 98 98.1 05/26/24 08:00 Room Air* 0 21 Total Intake and Output 05/25/24 05/25/24 05/26/24 15:00 23:00 07:00 Intake Total 0 ml Output Total 200 ml Balance -200 ml medications Current Medications Medications Dose Ordered Sig/Liane Route Start Time Stop Time Status Last Admin Dose Admin Polyethylene Glycol 17 gm DAILY PO 05/25/24 10:00 05/26/24 09:10 17 GM Sennosides 8.6 mg HS PO 05/25/24 22:00 Acetaminophen/ Hydrocodone Bitart 1 tab Q4HP PRN PO 05/25/24 09:30 05/26/24 09:10 1 TAB Ondansetron HCl 4 mg Q4HP PRN IV 05/25/24 09:30 05/25/24 20:05 4 MG Acetaminophen 650 mg Q6HP PRN PO 05/25/24 09:30 Morphine Sulfate 2 mg Q4HPRN PRN IV 05/25/24 09:30 05/25/24 20:04 2 MG Pantoprazole Sodium 40 mg DAILY IV 05/25/24 10:00 05/26/24 09:11 40 MG Patient Own Medication 25 mg DAILY PO 05/25/24 10:00 Hold Trazodone HCl 100 mg HS PO 05/25/24 22:00 05/25/24 23:20 100 MG Paroxetine HCl 20 mg DAILY PO 05/25/24 10:00 05/26/24 09:11 20 MG Cyclobenzaprine HCl 5 mg Q8HPRN PRN PO 05/26/24 09:00 05/26/24 11:07 5 MG Examination General Appearance: Alert, Oriented X3, Cooperative, No acute distress HEENT: Atraumatic, PERRLA, EOMI, Mucous membr. moist/pink Respiratory: Clear to auscultation, Normal air movement Cardiovascular: Regular rate, Normal S1, Normal S2, No murmurs Abdominal: Soft Extremities: No clubbing, No cyanosis, No edema, Normal pulses, No tenderness/swelling Skin: No significant lesion Neuro: Normal gait, Normal speech, Strength at 5/5 X4 ext, Normal tone, Sensation intact Psych/Mental Status: Mental status NL, Mood NL laboratory and microbiology Laboratory Tests 05/26/24 06:24 Test 05/26/24 06:24 Range/Units Serum Glucose 85 74-106 mg/dL Problem List/Assessment/Plan Problem List/Assessment/Plan #Intractable flank pain with nausea #Small esophageal hiatal hernia #Hepatomegaly #Constipation #Severe muscle spasms #Colonic diverticulosis #History of asthma #History of fibroids #History of UTI #History of diverticulitis Plan Lipase borderline (no 3x) med surge Antiemetics Pain management CT abdomen and pelvis noted UA normal Ultrasound renal: normal Bowel regimen: miralaax and senna Home medications reconciled DVT prophylaxis-SCDs PUD prophylaxis-Protonix Discussed plan of care with patient and nurse Case discussed with Dr Miah Jj discussed with: Patient, Other (rn) My Orders My Orders Orders - JUVENTINO JORGE Procedure Category Date Status Time Cyclobenzaprine PHA 05/26/24 In Process Tablet (Flexeril 09:00 Date of Service: May 26, 2024 Billing Provider: RHODA CARRION MD Common Visit Codes: [id number] INP/OBS CARE(HIGH) JUVENTINO JORGE RESIDENT May 26, 2024 14:11 RHODA CARRION MD May 26, 2024 22:12
[2024-05-27] VITALS (8 sets, daily range): BP systolic 101–174; BP diastolic 3–74; PULSE 60–87; RESP 17–20; TEMP 97.8–99.2; O2SAT 93–97
--- NOTE | 2024-05-27 12:37 | DVHPN2 ---
Reviewed: Care Plan, H&P, Labs, Medications Changes from previous H/P or p: No Changes General: Per HPI Gastrointestinal: Nausea, Other (Flank pain) Objective Vitals Vital Signs Date Time Temp Pulse Resp B/P (MAP) Pulse Ox O2 Delivery O2 Flow Rate FiO2 05/27/24 09:00 99.2 87 20 106/3 (37) 95 99.2 05/27/24 08:00 Room Air* 0 21 Intake/Output Intake and Output 05/27/24 07:00 Intake Total 1100 ml Balance 1100 ml Intake Oral 1100 ml # Voids 9 Medications Current Medications Medications Dose Ordered Sig/Liane Route Start Time Stop Time Status Last Admin Dose Admin Polyethylene Glycol 17 gm DAILY PO 05/25/24 10:00 05/27/24 10:16 17 GM Sennosides 8.6 mg HS PO 05/25/24 22:00 05/26/24 22:34 8.6 MG Acetaminophen/ Hydrocodone Bitart 1 tab Q4HP PRN PO 05/25/24 09:30 05/27/24 06:31 1 TAB Ondansetron HCl 4 mg Q4HP PRN IV 05/25/24 09:30 05/26/24 19:31 4 MG Acetaminophen 650 mg Q6HP PRN PO 05/25/24 09:30 Morphine Sulfate 2 mg Q4HPRN PRN IV 05/25/24 09:30 05/26/24 19:34 2 MG Pantoprazole Sodium 40 mg DAILY IV 05/25/24 10:00 05/27/24 10:16 40 MG Patient Own Medication 25 mg DAILY PO 05/25/24 10:00 Hold Trazodone HCl 100 mg HS PO 05/25/24 22:00 05/26/24 22:35 100 MG Paroxetine HCl 20 mg DAILY PO 05/25/24 10:00 05/27/24 10:16 20 MG Cyclobenzaprine HCl 5 mg Q8HPRN PRN PO 05/26/24 09:00 05/27/24 10:16 5 MG Laboratory Results Laboratory Tests 05/26/24 06:24 Urinalysis Test 05/25/24 04:39 Urine Color Yellow (Yellow) Urine Clarity Clear (Clear) Urine pH 5.0 (5.0-9.0) Urine Specific [place] 1.027 (1.001-1.035) Urine Protein Negative (Negative) Urine Ketones Negative (Negative) Urine Blood Trace /uL (Negative) H Urine Nitrite Negative (Negative) Urine Bilirubin Negative (Negative) Urine Urobilinogen Normal mg/dL (Negative) Urine Leukocyte Esterase Negative /uL (Negative) Urine RBC <1 /hpf (0 - 4) Urine Microscopic WBC < 1 /HPF (0-5) Urine Squamous Epithelial Cells None seen /hpf (<5) Urine Bacteria None seen /hpf (None Seen) Urine Mucus Few (None Seen) Urine Glucose Normal mg/dL (Normal) Assessment/Plan Assessment/Plan #Intractable flank pain with nausea #Small esophageal hiatal hernia #Hepatomegaly #Constipation #Severe muscle spasms #Colonic diverticulosis #History of asthma #History of fibroids #History of UTI #History of diverticulitis Plan Lipase borderline (no 3x) med surge Antiemetics Pain management CT abdomen and pelvis noted UA normal Ultrasound renal: normal Bowel regimen: miralaax and senna Home medications reconciled DVT prophylaxis-SCDs PUD prophylaxis-Protonix Discussed plan of care with patient and nurse Plan discussed with: Patient My Orders Orders - NATHALY QURESHI DO Procedure Category Date Status Time Lactulose Oral PHA 05/27/24 Logged 12:45 Lactulose Oral PHA 05/27/24 Transmitted 12:45 * [facility] [employer] [employer] Super[employer] CONS 05/27/24 Transmitted 12:33 Date of Service: May 27, 2024 Billing Provider: NATHALY QURESHI DO Common Visit Codes: [id number] INP/OBS CARE(HIGH) NATHALY QURESHI DO May 27, 2024 12:37
[2024-05-27] MEDS ORDERED: LACTULOSE 20Gm/30ML SOLN PO PRN (12:45)
[2024-05-27] MEDS: LACTULOSE 20Gm/30ML SOLN PO ONE (13:53)
--- NOTE | 2024-05-27 18:56 | DVHINCON2 ---
Date of service: May 27, [address] Dooley Reason for Consultation Abdominal pain with nausea History of Present Illness This 48-year-old female with a history of asthma fibroids UTI and diverticulosis in the past admitted with the complaints of abdominal pain nausea the pain was more in the right flank the on hematemesis no melena no vomiting no fever chills or other symptoms. No diarrhea or constipation Past Medical History Asthma diverticulitis Past Surgical History Appendectomy cholecystectomy hysterectomy Family History: Diabetes mellitus G8 MOTHER, Onset:Unknown G8 FATHER, Onset:Unknown Hypertension G8 FATHER, Onset:Unknown Family History Non contribute Social History Denies smoking or drinking Allergies: Coded Allergies: NO KNOWN ALLERGIES (Unverified , 01/10/19) Home Meds Reported Medications Rosuvastatin Calcium (Crestor) 20 Mg Tab, 25 MG PO DAILY, TAB 11/06/23 Trazodone Hcl (Trazodone Hcl) 100 Mg Tab, 100 MG PO HS, MG 06/07/21 Current Medications Current Medications Medications (Trade) Dose Ordered Sig/Liane Route PRN Reason Start Time Stop Time Status Last Admin Lactulose 30 ml Q6HPRN PRN PO FOR CONSTIPATION 05/27/24 12:45 Review of Systems Noncontributory Vital Signs Vital Signs Date Time Temp Pulse Resp B/P (MAP) Pulse Ox O2 Delivery O2 Flow Rate FiO2 05/27/24 17:00 98.6 84 20 102/62 (75) 97 98.6 05/27/24 08:00 Room Air* 0 21 Physical Exam Moderately built and nourished female in no acute distress Vitals stable Lungs clear Abdomen is soft mild tenderness in the right lower quadrant as well as suprapubic area No rigidity no guarding no masses bowel sounds no Extremities no edema no varicosities no clubbing Neurological no focal deficits Labs/Diagnostic Data Labs Test 05/26/24 06:24 05/25/24 04:49 05/25/24 04:39 Range/Units White Blood Count 8.8 4.4-10.8 10^3/uL Red Blood Count 3.88 L 4.0-5.20 10^6/uL Hemoglobin 12.9 12.2-16.2 g/dL Hematocrit 37.1 36.0-46.0 % Mean Corpuscular Volume 95.6 80.0-100.0 fL Mean Corpuscular Hemoglobin 33.2 H 28.0-32.0 pg Mean Corpuscular Hemoglobin Concent 34.7 32.0-36.0 g/dL Red Cell Distribution Width 12.7 11.8-14.3 % Platelet Count 171 140-450 10^3/uL Mean Platelet Volume 9.0 6.9-10.8 fL Neutrophils (%) (Auto) 66.0 37.0-80.0 % Lymphocytes (%) (Auto) 26.5 10.0-50.0 % Monocytes (%) (Auto) 5.7 0.0-12.0 % Eosinophils (%) (Auto) 1.5 0.0-7.0 % Basophils (%) (Auto) 0.3 0.0-2.0 % Neutrophils # (Auto) 5.8 1.6-8.6 10 ^3/uL Lymphocytes # (Auto) 2.3 0.4-5.4 10 ^3/uL Monocytes # (Auto) 0.5 0-1.3 10 ^3/uL Eosinophils # (Auto) 0.1 0-0.8 10 ^3/uL Basophils # (Auto) 0 0-0.2 10 ^3/uL Nucleated Red Blood Cells 0.0 % Sodium Level 139 136-145 mmol/L Potassium Level 3.8 3.5-5.1 mmol/L Chloride Level 104 98-107 mmol/L Carbon Dioxide Level 27 20-31 mmol/L Anion Gap 8 5-15 Blood Urea Nitrogen 12 9-23 mg/dL Creatinine 0.61 0.550-1.02 mg/dL Glomerular Filtration Rate Calc 111 >90 mL/min BUN/Creatinine Ratio 19.7 10.0-20.0 Serum Glucose 85 74-106 mg/dL Calcium Level 9.6 8.7-10.4 mg/dL Total Bilirubin 1.0 0.2-1.0 mg/dL Aspartate Amino Transferase (AST) 10 L 13-40 U/L Alanine Aminotransferase (ALT) 22 7-40 U/L Alkaline Phosphatase 90 46-116 U/L Total Protein 6.8 5.7-8.2 g/dL Albumin 4.3 3.2-4.8 g/dL Hepatitis B Surface Antigen Negative Negative Hepatitis C Antibody Negative Negative Lactic Acid Level 1.7 0.4-2.0 mmol/L Lipase 65 H 12-53 U/L Urine Color Yellow Yellow Urine Clarity Clear Clear Urine pH 5.0 5.0-9.0 Urine Specific [place] 1.027 1.001-1.035 Urine Protein Negative Negative Urine Ketones Negative Negative Urine Blood Trace H Negative /uL Urine Nitrite Negative Negative Urine Bilirubin Negative Negative Urine Urobilinogen Normal Negative mg/dL Urine Leukocyte Esterase Negative Negative /uL Urine RBC <1 0 - 4 /hpf Urine Microscopic WBC < 1 0-5 /HPF Urine Squamous Epithelial Cells None seen <5 /hpf Urine Bacteria None seen None Seen /hpf Urine Mucus Few None Seen Urine Glucose Normal Normal mg/dL Assessment 48-year-old female with a history of asthma fibroids UTI diverticulitis presenting with complaints of abdominal pain in the right flank radiating to the lower abdomen patient had a CAT scan which showed there was a fecal impaction as well as diverticulosis and without diverticulitis as well as hepatomegaly. Clinical impression Probably mild diverticulitis with diverticulosis Other pathology can not be excluded Plan/Recommendation will recommend to treat with the antibiotics increase the diet slowly and see the response. In case symptoms persist may need further evaluation Thank you Dr. Weems Plan discussed with: Patient AMISH WEEMS MD May 27, 2024 18:56
[2024-05-28 00:46] VITALS: BP 106/65; PULSE 77; RESP 20; TEMP 98; O2SAT 96
[2024-05-28 01:00] VITALS: BP 107/68; PULSE 70; RESP 18; TEMP 97.6; O2SAT 94
[2024-05-28 05:00] VITALS: BP 113/62; PULSE 79; RESP 18; TEMP 97.9; O2SAT 98
[2024-05-28 09:00] VITALS: BP 105/59; PULSE 71; RESP 20; TEMP 98.2; O2SAT 98
[2024-05-28] MEDS ORDERED: CYCL-837 PO (10:36)
[2024-05-28] MEDS ORDERED: SENN-58 PO (10:36)
[2024-05-28] MEDS: LACTULOSE 20Gm/30ML SOLN PO ONE (10:49)
[2024-05-28] MEDS: SENNA 8.6 MG TAB PO ONE (10:49)
[2024-05-28] MEDS: ACETAMINOPHEN 325 MG TAB PO PRN (10:49)
[2024-05-28] MEDS ORDERED: METR-344 PO (11:17)
[2024-05-28] MEDS ORDERED: CIPR500T4 PO (11:17)
[2024-05-28 12:25] VITALS: TEMP 36.8
--- NOTE | 2024-05-28 12:55 | DVHPN2 ---
Progress Note - Dictate Date Seen: May 28, 2024 Has the PT tested + for MRSA If YES, has PT been informed?: No Medical Necessity Reason Pt with a Central, PICC or Fol: No Subjective Feeling much better abdominal pains as decreased flank plain is also better some mild cramps vital signs Vital Sign Date Time Temp Pulse Resp B/P (MAP) Pulse Ox O2 Delivery O2 Flow Rate FiO2 05/28/24 12:25 36.8 05/28/24 09:00 71 20 105/59 (74) 98 05/28/24 07:30 Room Air* 0 21 Total Intake and Output 05/27/24 05/27/24 05/28/24 14:59 22:59 06:59 Intake Total 240 ml 800 ml 650 ml Balance 240 ml 800 ml 650 ml medications Current Medications Medications Dose Ordered Sig/Liane Route Start Time Stop Time Status Last Admin Dose Admin Polyethylene Glycol 17 gm DAILY PO 05/25/24 10:00 05/28/24 08:25 17 GM Sennosides 8.6 mg HS PO 05/25/24 22:00 05/28/24 00:36 8.6 MG Acetaminophen/ Hydrocodone Bitart 1 tab Q4HP PRN PO 05/25/24 09:30 05/28/24 08:24 1 TAB Ondansetron HCl 4 mg Q4HP PRN IV 05/25/24 09:30 05/28/24 00:38 4 MG Acetaminophen 650 mg Q6HP PRN PO 05/25/24 09:30 05/28/24 10:49 650 MG Morphine Sulfate 2 mg Q4HPRN PRN IV 05/25/24 09:30 05/28/24 00:43 2 MG Pantoprazole Sodium 40 mg DAILY IV 05/25/24 10:00 05/28/24 08:24 40 MG Patient Own Medication 25 mg DAILY PO 05/25/24 10:00 Hold Trazodone HCl 100 mg HS PO 05/25/24 22:00 05/26/24 22:35 100 MG Paroxetine HCl 20 mg DAILY PO 05/25/24 10:00 05/28/24 08:24 20 MG Cyclobenzaprine HCl 5 mg Q8HPRN PRN PO 05/26/24 09:00 05/27/24 10:16 5 MG Lactulose 30 ml Q6HPRN PRN PO 05/27/24 12:45 objective Abdomen is soft and nontender no masses bowel sounds normal laboratory and microbiology Laboratory Tests 05/26/24 06:24 Test 05/26/24 06:24 Range/Units Serum Glucose 85 74-106 mg/dL Assessment/Plan 48-year-old female with a history of asthma fibroids UTI diverticulitis presenting with complaints of abdominal pain in the right flank radiating to the lower abdomen patient had a CAT scan which showed there was a fecal impaction as well as diverticulosis and without diverticulitis as well as hepatomegaly. Clinical impression Probably mild diverticulitis with diverticulosis Other pathology can not be excluded Patient feels feeling much better without any nausea vomiting or abdominal discomfort or any urinary or lower GI symptoms Assessment possible mild diverticulitis or enteritis Plan Increase the diet increase activity Plan discussed with: Patient AMISH CARTAGENA MD May 28, 2024 12:54
[2024-05-28 13:00] VITALS: BP 93/56; PULSE 68; RESP 20; TEMP 98.2; O2SAT 98
--- NOTE | 2024-05-28 14:34 | DVHDSRES ---
Discharge Summary Date of Admission Resident Creating Document: JUVENTINO JORGE RESIDENT May 25, 2024 at 09:30 Date of Discharge: May 28, 2024 Admitting Diagnosis #Intractable flank pain with nausea Labs/Diagnostic Data: Laboratory Results Test 05/26/24 06:24 05/25/24 04:49 05/25/24 04:39 White Blood Count 8.8 10^3/uL (4.4-10.8) Red Blood Count 3.88 10^6/uL (4.0-5.20) Hemoglobin 12.9 g/dL (12.2-16.2) Hematocrit 37.1 % (36.0-46.0) Mean Corpuscular Volume 95.6 fL (80.0-100.0) Mean Corpuscular Hemoglobin 33.2 pg (28.0-32.0) Mean Corpuscular Hemoglobin Concent 34.7 g/dL (32.0-36.0) Red Cell Distribution Width 12.7 % (11.8-14.3) Platelet Count 171 10^3/uL (140-450) Mean Platelet Volume 9.0 fL (6.9-10.8) Neutrophils (%) (Auto) 66.0 % (37.0-80.0) Lymphocytes (%) (Auto) 26.5 % (10.0-50.0) Monocytes (%) (Auto) 5.7 % (0.0-12.0) Eosinophils (%) (Auto) 1.5 % (0.0-7.0) Basophils (%) (Auto) 0.3 % (0.0-2.0) Neutrophils # (Auto) 5.8 10 ^3/uL (1.6-8.6) Lymphocytes # (Auto) 2.3 10 ^3/uL (0.4-5.4) Monocytes # (Auto) 0.5 10 ^3/uL (0-1.3) Eosinophils # (Auto) 0.1 10 ^3/uL (0-0.8) Basophils # (Auto) 0 10 ^3/uL (0-0.2) Nucleated Red Blood Cells 0.0 % Sodium Level 139 mmol/L (136-145) Potassium Level 3.8 mmol/L (3.5-5.1) Chloride Level 104 mmol/L (98-107) Carbon Dioxide Level 27 mmol/L (20-31) Anion Gap 8 (5-15) Blood Urea Nitrogen 12 mg/dL (9-23) Creatinine 0.61 mg/dL (0.550-1.02) Glomerular Filtration Rate Calc 111 mL/min (>90) BUN/Creatinine Ratio 19.7 (10.0-20.0) Serum Glucose 85 mg/dL (74-106) Calcium Level 9.6 mg/dL (8.7-10.4) Total Bilirubin 1.0 mg/dL (0.2-1.0) Aspartate Amino Transferase (AST) 10 U/L (13-40) Alanine Aminotransferase (ALT) 22 U/L (7-40) Alkaline Phosphatase 90 U/L (46-116) Total Protein 6.8 g/dL (5.7-8.2) Albumin 4.3 g/dL (3.2-4.8) Hepatitis B Surface Antigen Negative (Negative) Hepatitis C Antibody Negative (Negative) Lactic Acid Level 1.7 mmol/L (0.4-2.0) Lipase 65 U/L (12-53) Urine Color Yellow (Yellow) Urine Clarity Clear (Clear) Urine pH 5.0 (5.0-9.0) Urine Specific [place] 1.027 (1.001-1.035) Urine Protein Negative (Negative) Urine Ketones Negative (Negative) Urine Blood Trace /uL (Negative) Urine Nitrite Negative (Negative) Urine Bilirubin Negative (Negative) Urine Urobilinogen Normal mg/dL (Negative) Urine Leukocyte Esterase Negative /uL (Negative) Urine RBC <1 /hpf (0 - 4) Urine Microscopic WBC < 1 /HPF (0-5) Urine Squamous Epithelial Cells None seen /hpf (<5) Urine Bacteria None seen /hpf (None Seen) Urine Mucus Few (None Seen) Urine Glucose Normal mg/dL (Normal) Other Laboratory Tests 05/26/24 06:24 Brief Hx & Hospital Course: Bhavna Pena V is a 48-year-old female with past medical history of asthma, fibroids, UTI, diverticulitis who presents to the ED with right flank pain that radiates to the right with nausea. Patient has reports that the pain is currently 8/10 constant stabbing and pulsating like. She reports that the pain started yesterday at 1:00 a.m.. She denies any recent travels, recent trauma or injury, recent ingestion of spoiled food, lightheadedness, weakness, dizziness, chest pain, shortness of breath, vomiting, or diarrhea. Patient also stated severe muscle spasms Pulmonary: Asthma GI: Other (Diverticulitis) Renal/: UTI Past Medical History Fibroids Past Surgical History: Appendectomy, Cholecystectomy, Hysterectomy, Other (Abdominal plasty) Family History: DM, Hyperlipidemia, Hypertension, Other (Mom and dad with diabetes, hypertension, and hyperlipidemia) Smoke: No ALCOHOL: none Drugs: None Lives: with Family Domestic Violence: Neg Hospital course: CT scan showed: Small esophageal hiatal hernia. Hepatomegaly with fatty infiltration. Fecal retention in the colon consistent with constipation and Colonic diverticulosis without acute diverticulitis. Her abdominal pain was managed with IV pain meds, her muscle spasm needed IV ativan, patient needed IV antiemetic and also needed multiple treatments due to severe constipation. Patient was DC stable, without any complication and supportive management. General Appearance: Alert, Oriented X3, Cooperative, No acute distress HEENT: Atraumatic, PERRLA, EOMI, Mucous membr. moist/pink Respiratory: Clear to auscultation, Normal air movement Cardiovascular: Regular rate, Normal S1, Normal S2, No murmurs Abdominal: Soft Extremities: No clubbing, No cyanosis, No edema, Normal pulses, No tenderness/swelling Skin: No significant lesion Neuro: Normal gait, Normal speech, Strength at 5/5 X4 ext, Normal tone, Sensation intact Psych/Mental Status: Mental status NL, Mood NL Case discussed with Dr Dooley Consults/Reason for consult GI due to acute intractable abdominal pain Operations or Procedures EXAM: CT Abdomen and Pelvis Without Intravenous Contrast CLINICAL INDICATION: Right flank pain TECHNIQUE: Axial computed tomography images of the abdomen and pelvis without intravenous contrast. This CT exam was performed using one or more of the following dose reduction techniques: automated exposure control, adjustment of the mA and/or kV according to patient size, and/or use of iterative reconstruction technique. CONTRAST: COMPARISON: CT CT AB PEL WO CON-NO ORAL OR IV on DOS: 04/21/24, CT CT AB PEL WO CON-NO ORAL OR IV on DOS: 11/06/23, CT ABD PELVIS WO CONTRAST on DOS: 06/06/21 FINDINGS: LUNG BASES: Unremarkable. No mass. No consolidation. MEDIASTINUM: Small esophageal hiatal hernia. ABDOMEN: LIVER: Hepatomegaly with fatty infiltration. GALLBLADDER AND BILE DUCTS: Gallbladder is surgically absent. No ductal dilation. PANCREAS: Unremarkable. No ductal dilation. SPLEEN: Unremarkable. No splenomegaly. ADRENALS: Unremarkable. No mass. KIDNEYS AND URETERS: Unremarkable. No obstructing stones. No hydronephrosis. STOMACH AND BOWEL: Fecal retention in the colon consistent with constipation. Colonic diverticulosis without acute diverticulitis. No obstruction. PELVIS: APPENDIX: No findings to suggest acute appendicitis. BLADDER: Unremarkable. No stones. REPRODUCTIVE: Unremarkable as visualized. ABDOMEN and PELVIS: INTRAPERITONEAL SPACE: Unremarkable. No free air. No significant fluid collection. BONES/JOINTS: No acute fracture. No dislocation. SOFT TISSUES: Unremarkable. VASCULATURE: Unremarkable. No abdominal aortic aneurysm. LYMPH NODES: Unremarkable. No enlarged lymph nodes. OTHER FINDINGS: . . IMPRESSION: 1. Small esophageal hiatal hernia. 2. Hepatomegaly with fatty infiltration. 3. Fecal retention in the colon consistent with constipation. 4. Colonic diverticulosis without acute diverticulitis. Condition at Discharge: Stable Final Diagnosis/Problems List #Intractable flank pain with nausea #Small esophageal hiatal hernia #Hepatomegaly #Constipation #Severe muscle spasms #Colonic diverticulosis #History of asthma #History of fibroids #History of UTI #History of diverticulitis Discharge Disposition: Home Discharge Instruct/Medications Diet: See Comment Diet comment: soft diet Activity: Bed rest Follow Up/Referral: [facility] Medications: see prescription Discharge Statement: "Patient was advised to return to the ER or call 911 if any headaches, dizziness, shortness of breath, chest pain, abdominal pain, bleeding, fevers, or worsening of medical condition. Patient was counseled about treatment plan, medications, possible side effects, patientverbalized understanding. All questions were answered to the best of my ability. This discharge took greater then 30 minutes in planning, reviewing documentation, counseling the patient, and discussing with other team members." ASSESSMENT ASSESSMENT Assessment #Intractable flank pain with nausea #Small esophageal hiatal hernia #Hepatomegaly #Constipation #Severe muscle spasms #Colonic diverticulosis #History of asthma #History of fibroids #History of UTI #History of diverticulitis JUVENTINO JORGE RESIDENT May 28, 2024 14:34
== END 2024-05-28 13:50 | disposition home or self-care (01) | DRG 392 ==
LOC: ER 04:10 → OVERFLOW 09:30 → WEST WING 23:56
PROVIDERS: ADMIT Internal Medicine; ATTEND Internal Medicine
DX: K57.30 Diverticulosis of large intestine without perforation or abscess without bleeding (principal); K56.41 Fecal impaction; K44.9 Diaphragmatic hernia without obstruction or gangrene; J45.909 Unspecified asthma, uncomplicated; R16.0 Hepatomegaly, not elsewhere classified; I10 Essential (primary) hypertension; E78.5 Hyperlipidemia, unspecified; M62.838 Other muscle spasm; Z90.710 Acquired absence of both cervix and uterus; Z90.49 Acquired absence of other specified parts of digestive tract; Z87.440 Personal history of urinary (tract) infections; Z83.3 Family history of diabetes mellitus; Z82.49 Family history of ischemic heart disease and other diseases of the circulatory system; Z79.899 Other long term (current) drug therapy
CPT/HCPCS: 36415; 74176; 76775; 80053; 81001; 83605; 83690; 85025; 86803; 87340; 96372; G0378; J1885; J2405; J2470; Q0162

== ENCOUNTER 2024-05-30 18:15 | Inpatient (IN) | payer BC ==
[~2024-05-30] VITALS: Ht 162.6 cm; Wt 85.0 kg
[~2024-05-30 18:15] MED LIST changes: -CEPH250C PO; +CIPR500T4 PO; +CYCL-837 PO; -CYCL-839 PO; -DICY10CA PO; -DICY20TA PO; -DOCU-265 PO; +METR-344 PO; -NAP500T PO; -NITR-87 PO; +SENN-58 PO
[2024-05-30 19:44] LABS: Urine Bacteria None Seen /hpf (None Seen)
[2024-05-30 19:55] LABS: Basophils # (auto) 0.1 10 ^3/uL (0-0.2); Basophils % (auto) 0.9 % (0.0-2.0); Eosinophils # (auto) 0.1 10 ^3/uL (0-0.8); Eosinophils % (auto) 0.7 % (0.0-7.0); Hematocrit 40.9 % (36.0-46.0); Hemoglobin 14.1 g/dL (12.2-16.2); Lymphocytes # (auto) 2.5 10 ^3/uL (0.4-5.4); Lymphocytes % (auto) 22.6 % (10.0-50.0); Mean Corpuscular Hemoglobin 32.5 pg (28.0-32.0); Mean Corpuscular Hgb Conc. 34.5 g/dL (32.0-36.0); Mean Corpuscular Volume 94.1 fL (80.0-100.0); Monocytes # (auto) 0.7 10 ^3/uL (0-1.3); Monocytes % (auto) 6.1 % (0.0-12.0); Neutrophils # (auto) 7.9 10 ^3/uL (1.6-8.6); Neutrophils % (auto) 69.7 % (37.0-80.0); Platelet Count (auto) 208 10^3/uL (140-450); Red Blood Cells 4.35 10^6/uL (4.0-5.20); Red Cell Distribution Width 12.7 % (11.8-14.3); White Blood Cell 11.3 10^3/uL (4.4-10.8)
[2024-05-30 20:02] LABS: Urine Blood Negative /uL (Negative); Urine Clarity Clear (Clear); Urine Color Light-Yellow (Yellow); Urine Protein, UAD Negative (Negative); Urine Specific Gravity 1.012 (1.001-1.035); Urine Squamous Epithelial Cell None Seen /hpf (<5); Urine Urobilinogen Normal (Negative); Urine WBC 1 /HPF (0-5)
[2024-05-30 20:25] LABS: Alanine Aminotransferase 16 U/L (7-40); Alkaline Phosphatase 92 U/L (46-116); Anion Gap 9 (5-15); BUN/Creatinine Ratio 14.5 (10.0-20.0); Bilirubin, Total 0.9 mg/dL (0.2-1.0); Blood Urea Nitrogen 11 mg/dL (9-23); Calcium 10.1 mg/dL (8.7-10.4); Carbon Dioxide 28 mmol/L (20-31); Chloride 103 mmol/L (98-107); Glucose 89 mg/dL (74-106); Lipase 35 U/L (12-53); Potassium 3.9 mmol/L (3.5-5.1); Sodium 140 mmol/L (136-145); Total Protein 7.7 g/dL (5.7-8.2)
[2024-05-30 20:33] LABS: Albumin 4.9 g/dL (3.2-4.8); Aspartate Aminotransferase < 8 U/L (13-40)
--- NOTE | 2024-05-30 21:05 | ED.PDOC ---
History of Present Illness HPI Comments Bhavna Pena, a 48-year-old female with a medical history of asthma, fibroids, recurrent UTI, Small esophageal hiatal hernia. Hepatomegaly with fatty infiltration and diverticulitis, diverticulosis, presented to the ED with severe right flank pain radiating to the right side, accompanied by nausea. The pain, described as constant, stabbing, and pulsating, started previous day and is rated 8/10 in intensity. She denies recent travel, trauma, ingestion of spoiled food, and symptoms like lightheadedness, weakness, dizziness, chest pain, shortness of breath, vomiting, or diarrhea. She also reported severe muscle spasms. Her past surgical history includes appendectomy, cholecystectomy, hys terectomy, and abdominoplasty. She has a family history of diabetes, hyperlipidemia, and hypertension, but does not smoke, drink alcohol, or use drugs, and lives with her family. She was admitted in the hospital and was conservatively treated with negative CT abdomen pelvis, GI evaluation and ultrasound between 05/25/2024 and 05/28/2024. Post discharge since yesterday she is having again a suprapubic similar pain with nausea with focal pain with lateral radiation to the right LQ. Patient is admitted inpatient for further workup and management, initial workup negative, lactate negative, signs of sepsis with IV antibiotics, fluid given pending imaging as per primary team. Past medical history: As above Past surgical history: As above Family history: Diabetes, hyperlipidemia, hypertension, no familial history of GI malignancy. Unlikely to the admission. The Social history: Denies smoking, alcohol, drugs lives with the family at home. Chief Complaint: Abdominal Pain Time Seen by MD: 18:30 Primary Care Provider: none Reviewed Notes: Nurses Notes, Medications, Allergies Allergies: Coded Allergies: NO KNOWN ALLERGIES (Unverified , 01/10/19) Home Meds Active Scripts Metronidazole (Flagyl) 500 Mg Tab, 500 MG PO BID for 7 Days, #14 TAB Prov:JUVETNINO JORGE 05/28/24 Ciprofloxacin Hcl (Ciprofloxacin Hcl) 500 Mg Tab, 500 MG PO BID for 7 Days, #14 TAB Prov:JUVENTINO JORGE 05/28/24 Senna (Senokot) 8.6 Mg Tab, 8.6 MG PO DAILY for 5 Days, #5 TAB Prov:JUVENTINO JORGE 05/28/24 Cyclobenzaprine Hcl (Cyclobenzaprine Hcl) 5 Mg Tab, 5 MG PO BID for 5 Days, #10 TAB Prov:STEPHANI HogueJUVENTINO RESIDENT 05/28/24 Reported Medications Rosuvastatin Calcium (Crestor) 20 Mg Tab, 25 MG PO DAILY, TAB 11/06/23 Trazodone Hcl (Trazodone Hcl) 100 Mg Tab, 100 MG PO HS, MG 06/07/21 Information Source: Patient Mode of Arrival: Ambulatory Severity: Moderate Timing: Hours Duration: Since onset, Intermittent Prehospital treatment: Pain Meds (Tried naproxen/NSAIDs without any relief.) Location: Suprapubic, right lower quadrant. Quality Cramping, dull Worsens With heavy meal and food. Improves Mildly with the NSAIDs. Associated signs and symptoms Nausea, nonbloody non biliary vomiting distantly Past Medical History PAST MEDICAL HISTORY: Asthma, UTI'S Past Medical History (Other): As above Surgical History: Appendectomy, Cholecystectomy, Hysterectomy Surgical History (Other): As above SERVICE DELIVERY CONSULTANT History: No Pertinent SERVICE DELIVERY CONSULTANT History Family History Family History: Family hx of DM Family History (Other): As above Social History Smoker: Non-Smoker Alcohol: Denies ETOH Use Drugs: Denies Drug Use Lives In: Home Constitutional: reports: chills, malaise, sweats; denies: diaphoresis, fatigue, fever, weakness, others EENTM: denies: blurred vision, double vision, ear bleeding, ear discharge, ear drainage, ear pain, ear ringing, eye pain, eye redness, hearing loss, mouth pain, mouth swelling, nasal discharge, nose bleeding, nose congestion, nose pain, photophobia, tearing, throat pain, throat swelling, voice changes, others Respiratory: denies: cough, hemoptysis, orthopnea, SOB at rest, shortness of breath, SOB with excertion, stridor, wheezing, others Cardiovascular: denies: chest pain, dizzy spells, diaphoresis, Dyspnea on exertion, edema, irregular heart beat, left arm pain, lightheadedness, palpitations, PND, syncope, others Gastrointestinal: reports: abdominal pain, nausea, poor appetite, vomiting; denies: abdomen distended, blood streaked bowels, constipated, diarrhea, dysphagia, difficulty swallowing, hematemesis, melena, poor fluid intake, rectal bleeding, rectal pain, others Neurological: denies: dizziness, fainting, headache, left sided numbness, left sided weakness, numbness, paresthesia, pre-existing deficit, right sided numbness, right sided weakness, seizure, speech problems, tingling, tremors, weakness, others Musculoskeletal: denies: back pain, gout, joint pain, joint swelling, muscle pain, muscle stiffness, neck pain, others Integumetry: denies: bruises, change in color, change in hair/nails, dryness, laceration, lesions, lumps, rash, wounds, others Allergic/Immunocompromised: denies: Difficulty Healing, Frequent Infections, Hives, Itching, others Hematologic/Lymphatic: denies: anemia, blood clots, easy bleeding, easy bruising, swollen glands, others Endocrine: denies: excessive hunger, excessive sweating, excessive thirst, excessive urination, flushing, intolerance to cold, intolerance to heat, unexplained weight gain, unexplained weight loss, others Psychiatric: denies: anxiety, bipolar disorder, depression, hopeless, panic disorder, schizophrenia, sleepless, suicidal, others Physical Exam General Appearance: Moderate Distress HEENT: Normal ENT Inspection, Other (No icterus or pallor noted.) Neck: Non-Tender, Normal Inspection Respiratory: Lungs Clear, No Accessory Muscle Use, No Respiratory Distress, Normal Breath Sounds Cardiovascular: No Edema, No Murmur, No Gallop, Normal Peripheral Pulses, Regu lar Rate/Rhythm Breast Exam: Deferred Gastrointestinal: No Pulsatile Mass, Normal Bowel Sounds, Rebound, RLQ (Pain, no guarding), Tenderness Genitalia: Deferred Pelvic: Deferred Rectal: Deferred Extremities: Normal capillary refill Neurologic: Alert, No Motor Deficits, No Sensory Deficits Cerebellar Function: Normal Reflexes: NOT DONE Skin: NOT DONE Lymphatic: NOT DONE Was a procedure done? Was a procedure done?: No EKG EKG : Comments At this point not necessary. Differential Dx Considerations may include: Colitis, diverticulitis, gastroenteritis, GERD, PUD, duodenitis, inflammatory bowel disease, irritable bowel syndrome, intra-abdominal infection, sepsis, X-Ray, Labs, Meds, VS Vital Signs Date Time Temp Pulse Resp B/P (MAP) Pulse Ox O2 Delivery O2 Flow Rate FiO2 05/30/24 18:28 98.7 129 20 127/88 (101) 98 98.7 Lab Test 05/30/24 19:46 05/30/24 18:28 Range/Units White Blood Count 11.3 #H 4.4-10.8 10^3/uL Red Blood Count 4.35 4.0-5.20 10^6/uL Hemoglobin 14.1 12.2-16.2 g/dL Hematocrit 40.9 # 36.0-46.0 % Mean Corpuscular Volume 94.1 80.0-100.0 fL Mean Corpuscular Hemoglobin 32.5 H 28.0-32.0 pg Mean Corpuscular Hemoglobin Concent 34.5 32.0-36.0 g/dL Red Cell Distribution Width 12.7 11.8-14.3 % Platelet Count 208 140-450 10^3/uL Mean Platelet Volume 8.5 6.9-10.8 fL Neutrophils (%) (Auto) 69.7 37.0-80.0 % Lymphocytes (%) (Auto) 22.6 10.0-50.0 % Monocytes (%) (Auto) 6.1 0.0-12.0 % Eosinophils (%) (Auto) 0.7 0.0-7.0 % Basophils (%) (Auto) 0.9 0.0-2.0 % Neutrophils # (Auto) 7.9 1.6-8.6 10 ^3/uL Lymphocytes # (Auto) 2.5 0.4-5.4 10 ^3/uL Monocytes # (Auto) 0.7 0-1.3 10 ^3/uL Eosinophils # (Auto) 0.1 0-0.8 10 ^3/uL Basophils # (Auto) 0.1 0-0.2 10 ^3/uL Nucleated Red Blood Cells 0.0 % Sodium Level 140 136-145 mmol/L Potassium Level 3.9 3.5-5.1 mmol/L Chloride Level 103 98-107 mmol/L Carbon Dioxide Level 28 20-31 mmol/L Anion Gap 9 5-15 Blood Urea Nitrogen 11 9-23 mg/dL Creatinine 0.76 0.550-1.02 mg/dL Glomerular Filtration Rate Calc 97 >90 mL/min BUN/Creatinine Ratio 14.5 10.0-20.0 Serum Glucose 89 74-106 mg/dL Lactic Acid Level 1.1 0.4-2.0 mmol/L Calcium Level 10.1 8.7-10.4 mg/dL Total Bilirubin 0.9 0.2-1.0 mg/dL Aspartate Amino Transferase (AST) < 8 L 13-40 U/L Alanine Aminotransferase (ALT) 16 7-40 U/L Alkaline Phosphatase 92 46-116 U/L Total Protein 7.7 5.7-8.2 g/dL Albumin 4.9 H 3.2-4.8 g/dL Lipase 35 12-53 U/L Urine Color Light-yellow Yellow Urine Clarity Clear Clear Urine pH 6.0 5.0-9.0 Urine Specific [place] 1.012 1.001-1.035 Urine Protein Negative Negative Urine Ketones Trace Negative Urine Blood Negative Negative /uL Urine Nitrite Negative Negative Urine Bilirubin Negative Negative Urine Urobilinogen Normal Negative mg/dL Urine Leukocyte Esterase Negative Negative /uL Urine RBC 1 0 - 4 /hpf Urine Microscopic WBC 1 0-5 /HPF Urine Squamous Epithelial Cells None seen <5 /hpf Urine Bacteria None seen None Seen /hpf Urine Glucose Normal Normal mg/dL Images Reviewed?: Images reviewed and evaluated by me Time of 1ST Reevaluation: 21:30 Reevaluation 1ST: Unchanged (Initial workup, lipase, reviewed with remarkable elevated white count with tachycardia with possible source of infection intra- abdominal, interval physical examination unremarkable, patient remains hemodynamically stable so far, moves the SIRS criteria, lactate negative. Decided for in-hospital further management and workup.) Time of 2ND Reevaluation: 22:00 Reevaluation 2ND: Unchanged (IV pain medication, antiemetic, antibiotics started, patient is agreeable to stay in the hospital and follow-through further management and workup. Gave sign out to the admitting night resident team Dr. Wells and Dr. Grimes. Further workup to continue, updated RN, discussed with Dr. Wang. ) Consultation: GI Patient Education/Counseling: Diagnosis, Treatment, Prognosis, Need For Follow Up Family Education/Counseling: No Family Present Sepsis Sepsis Reasesment Focused Exam Sepsis focused exam: focus exam completed, time: (Positive for sepsis, 2129. ) Departure 1 Departure Time of Disposition: 22:02 Impression: Primary Impression: Appendicitis Qualified Codes: K37 - Unspecified appendicitis Additional Impressions: Diverticulitis of intestine Qualified Codes: K57.92 - Diverticulitis of intestine, part unspecified, without perforation or abscess without bleeding Diverticulosis Disposition: 09 ADMITTED INPATIENT Admit to: Tele Condition: Guarded Critical Care Note Critical Care Time?: No Stability Stability form required: No Heart Score Heart Score: Heart Score Response (Comments) Value History N/A 0 EKG N/A 0 Age N/A 0 Risk Factors N/A 0 Troponin N/A 0 Total 0 JAGRUTI PHAM RESIDENT May 30, 2024 21:05
--- NOTE | 2024-05-30 21:40 | DVHHPRES ---
History of Present Illness Resident Creating Document: LACHELLE RAMOS RESIDENT History of Present Illness Is a 48-year-old female with past medical history of asthma, fibroids, diverticulosis who comes in due to abdominal pain. Patient was discharged from the [facility] on 05/25/2024, per patient she has been experiencing abdominal pain since her discharge which is constant and progressively worsening, she describes it as burning in nature and 10/10 in intensity without any relieving factors and worsened with walking. Patient notes that she had similar pain symptoms 1 year ago and she was diagnosed with cholecystitis and underwent a cholecystectomy. Last bowel movement was this morning, patient notes it was a small bowel movement no diarrhea no constipation. Associated symptoms include nausea, fatigue, fever, chills, palpitations and urinary frequency. Patient was noted to have tachycardia of 129 and a white cell count of 11.3. Patient was started on LR at 30 cc/kg per hour along with IV metronidazole and IV ciprofloxacin. Past Medical History Asthma, fibroids, diverticulosis Past Surgical History Appendectomy, cholecystectomy, hysterectomy, abdominal plasty Family History Diabetes, hyperlipidemia, hypertension Smoke: No ALCOHOL: none Drugs: None Lives: with Family Review of Systems Constitutional: Yes: Fever, Chills, Malaise; No: Sweats, Weakness, Other Eyes: No: Pain, Vision change, Conjunctivae inflammation, Eyelid inflammation, Other, Redness ENT: No: Ear pain, Ear discharge, Nose pain, Nose discharge, Nose congestion, Mouth pain, Mouth swelling, Throat pain, Throat swelling, Other Respiratory: No: Cough, Dry, Shortness of breath, SOB with excertion, Wheezing, Hemoptysis, Pleuritic Pain, Sputum, Wheezing, Other Cardiovascular: Palpitations; No: Chest Pain, Orthopnea, Paroxysmal Noc. Dyspnea, Edema, Lt Headedness, Other Gastrointestinal: Nausea; No: Vomiting, Abdominal Pain, Diarrhea, Constipation, Melena, Hematochezia, Other Genitourinary: No Dysuria; Frequency; No Incontinence, No Hematuria, No Retention, No Other Musculoskeletal: No: other, neck pain, shoulder pain, arm pain, back pain, hand pain, leg pain, foot pain Skin: No: Rash, Lesions, Jaundice, Bruising, Other Neurological: No: Weakness, Numbness, Incoordination, Change in speech, Confusion, Seizures, Other Allergies: Coded Allergies: NO KNOWN ALLERGIES (Unverified , 01/10/19) Exam Vital Signs Vital Signs Date Time Temp Pulse Resp B/P (MAP) Pulse Ox O2 Delivery O2 Flow Rate FiO2 05/30/24 18:28 98.7 129 20 127/88 (101) 98 98.7 General Appearance: Alert, Oriented X3, Cooperative, moderate distress HEENT: Atraumatic, PERRLA, EOMI, Other (Dry mucous membranes) Respiratory: Clear to auscultation, Normal air movement Cardiovascular: Normal S1, Normal S2, Other (Tachycardia) Abdominal: Normal bowel sounds, Soft, Other (Severe generalized tenderness in the lower abdomen. Right-sided back muscle spasm and tenderness noted) Skin: No significant lesion Neuro: Normal gait, Normal speech, Strength at 5/5 X4 ext, Sensation intact Psych/Mental Status: Mental status NL, Mood NL Labs/Xrays Labs Test 05/30/24 19:46 05/30/24 18:28 Range/Units White Blood Count 11.3 #H 4.4-10.8 10^3/uL Red Blood Count 4.35 4.0-5.20 10^6/uL Hemoglobin 14.1 12.2-16.2 g/dL Hematocrit 40.9 # 36.0-46.0 % Mean Corpuscular Volume 94.1 80.0-100.0 fL Mean Corpuscular Hemoglobin 32.5 H 28.0-32.0 pg Mean Corpuscular Hemoglobin Concent 34.5 32.0-36.0 g/dL Red Cell Distribution Width 12.7 11.8-14.3 % Platelet Count 208 140-450 10^3/uL Mean Platelet Volume 8.5 6.9-10.8 fL Neutrophils (%) (Auto) 69.7 37.0-80.0 % Lymphocytes (%) (Auto) 22.6 10.0-50.0 % Monocytes (%) (Auto) 6.1 0.0-12.0 % Eosinophils (%) (Auto) 0.7 0.0-7.0 % Basophils (%) (Auto) 0.9 0.0-2.0 % Neutrophils # (Auto) 7.9 1.6-8.6 10 ^3/uL Lymphocytes # (Auto) 2.5 0.4-5.4 10 ^3/uL Monocytes # (Auto) 0.7 0-1.3 10 ^3/uL Eosinophils # (Auto) 0.1 0-0.8 10 ^3/uL Basophils # (Auto) 0.1 0-0.2 10 ^3/uL Nucleated Red Blood Cells 0.0 % Sodium Level 140 136-145 mmol/L Potassium Level 3.9 3.5-5.1 mmol/L Chloride Level 103 98-107 mmol/L Carbon Dioxide Level 28 20-31 mmol/L Anion Gap 9 5-15 Blood Urea Nitrogen 11 9-23 mg/dL Creatinine 0.76 0.550-1.02 mg/dL Glomerular Filtration Rate Calc 97 >90 mL/min BUN/Creatinine Ratio 14.5 10.0-20.0 Serum Glucose 89 74-106 mg/dL Lactic Acid Level 1.1 0.4-2.0 mmol/L Calcium Level 10.1 8.7-10.4 mg/dL Total Bilirubin 0.9 0.2-1.0 mg/dL Aspartate Amino Transferase (AST) < 8 L 13-40 U/L Alanine Aminotransferase (ALT) 16 7-40 U/L Alkaline Phosphatase 92 46-116 U/L Total Protein 7.7 5.7-8.2 g/dL Albumin 4.9 H 3.2-4.8 g/dL Lipase 35 12-53 U/L Urine Color Light-yellow Yellow Urine Clarity Clear Clear Urine pH 6.0 5.0-9.0 Urine Specific [place] 1.012 1.001-1.035 Urine Protein Negative Negative Urine Ketones Trace Negative Urine Blood Negative Negative /uL Urine Nitrite Negative Negative Urine Bilirubin Negative Negative Urine Urobilinogen Normal Negative mg/dL Urine Leukocyte Esterase Negative Negative /uL Urine RBC 1 0 - 4 /hpf Urine Microscopic WBC 1 0-5 /HPF Urine Squamous Epithelial Cells None seen <5 /hpf Urine Bacteria None seen None Seen /hpf Urine Glucose Normal Normal mg/dL Assessment/Plan Assessment/Plan Acute intractable abdominal pain due to RLQ abscess vs hematoma? Tubo-ovarian abscess can not be ruled out Sepsis due to above History of diverticulosis History of cholecystectomy 2 years ago, appendectomy in November 2023 History of hysterectomy without salpingo-oophorectomy - CT chest abdomen pelvis with IV and oral contrast: Mixed density loculated masslike collection in the right lower quadrant adjacent to postsurgical changes estimated 7.9 x 4.3 cm with surrounding fat stranding. Findings may be on the basis of abscess or hematoma. Correlation with clinical history is recommended. If the patient still has ovaries, tubal ovarian abscess may be considered. - lactated Ringer at 30 cc/kg per hour - IV ciprofloxacin, IV metronidazole - IV Zofran as needed - blood culture, stool bacterial culture, stool ova and parasite - consulted surgery History of asthma, currently stable - monitor History of fibroids s/p hysterectomy Insomnia Dyslipidemia - resumed home medication trazodone 100 mg - resumed home medication atorvastatin 40 mg PUD prophylaxis: protonix 40mg DVT prophylaxis: SCDs Goals of care: Full code, discussed for >16 minutes on 05/30/2024 Plan discussed with patient Plan discussed with Dr. Grimes Plan discussed with: Patient, Spouse, Other (RN) Date of Service: May 30, 2024 Billing Provider: DEEP GRIMES MD Common Visit Codes: [id number] INP/OBS CARE (HIGH) LACHELLE RAMOS RESIDENT May 30, 2024 21:40
[2024-05-30] MEDS: MORPHINE SULFATE INJ 2 MG/ml SYRG IM ONE (22:26)
[2024-05-30] MEDS: metroNIDAZOLE 500MG/100ML 100 ML IV ONE (22:27)
[2024-05-30] MEDS: ONDANSETRON HCL 4 MG/2 ML VIAL IM ONE (22:27)
[2024-05-30] MEDS: PANTOPRAZOLE 40 MG/10 ML VIAL INJ IV ONE (22:27)
[2024-05-30] MEDS: CIPROFLOXACIN 400MG/200ML 200 ML IV ONE (22:50)
[2024-05-30] MEDS: traZODone HCL 50 MG TAB PO SCH (23:04)
[2024-05-30 23:19] VITALS: PULSE 89; RESP 19; O2SAT 96
[2024-05-30] MEDS: LACTATED RINGER'S 1,650 ML IV ONE (23:25)
[2024-05-30 23:42] VITALS: BP 116/75; PULSE 75; RESP 16; TEMP 98.6; O2SAT 100
[2024-05-30] MEDS: OMNIPAQUE 12mg/ml 500ml ORAL SOLUTION PO ONE (23:42)
[2024-05-30 23:49] LABS: Opiate Scree,Urine Neg (NEGATIVE)
[2024-05-30 23:50] LABS: Amphetamine Screen, Urine Neg (NEGATIVE); Barbiturate Scree,Urine Neg (NEGATIVE); Benzodiazephine Screen, Urine Neg (NEGATIVE); Cannabinoid Screen, Urine Neg (NEGATIVE); Cocaine Screen, Urine Neg (NEGATIVE); Phencyclidine Screen, Urine Neg (NEGATIVE)
[2024-05-31] VITALS (9 sets, daily range): BP systolic 106–119; BP diastolic 61–80; PULSE 78–98; RESP 18–20; TEMP 98.2–99.2; O2SAT 93–99
[2024-05-31] MEDS ORDERED: PAR20T PO (00:05)
[2024-05-31] MEDS: IOHEXOL 300 MG/ML 100ML BOTTLE IJ ONE (01:29)
--- NOTE | 2024-05-31 03:38 | DVH ---
Exam: CT CT CHST AB PLV W CON-ORAL IV History: abdominal pain Comparison Study: CT 05/25/2024, 04/21/2024 Contrast: 100 cc Omnipaque 300 TECHNIQUE: A digital bilingual kindergarten teacher image was obtained. During the uneventful, intravenous administration of c ontrast material, multislice data acquisition was obtained through the abdomen and pelvis. The data s et was subsequently reconstructed into axial images. Images were reviewed on a work station using a c ombination of axial and multiplanar using a variety of window levels and settings. All CT scans at this medical facility are performed using dose modulation techniques as appropriate t o a performed exam including the following: Automated exposure control was utilized; adjustment of th e MA and/or KV according to patient size; and use of iterative reconstruction technique. Radiation Dose Information: CT Dose: CTDI volume is 14.54 mGy. Dose-length product is 1000.62 mGy*cm FINDINGS: Airway is patent. Thyroid gland appears unremarkable. No mediastinal or hilar adenopathy. No pericar dial or pleural effusion. Lungs appear clear with dependent changes. There is diffuse hepatic steatosis. There has been prior cholecystectomy. Common bile duct is mildly prominent. No pancreatic ductal dilatation. The pancreas, spleen, and adrenal glands appear unremark able. The kidneys enhance symmetrically without hydronephrosis. There is no evidence of bowel obstruction. In the right lower quadrant adjacent to surgical clips the re is a multiloculated mixed density lesion measuring 7.9 x 4.0 cm no evidence of free intraperitonea l air. Urinary bladder appears unremarkable. No suspicious osseous lesion. IMPRESSION: 1. Mixed density loculated masslike collection in the right lower quadrant adjacent to postsurgical c hanges estimated 7.9 x 4.3 cm with surrounding fat stranding. Findings may be on the basis of abscess or hematoma. Correlation with clinical history is recommended. If the patient still has ovaries, tub al ovarian abscess may be considered.
[2024-05-31] MEDS: ACETAMINOPHEN 325 MG TAB PO PRN (03:51)
[2024-05-31] MEDS: KETOROLAC TROMETH 30 MG/ML 1ML VIAL IV ONE (04:45)
[2024-05-31] MEDS ORDERED: metroNIDAZOLE 500MG/100ML 100 ML IV ONE (05:00)
[2024-05-31] MEDS: metroNIDAZOLE 500MG/100ML 100 ML IV SCH (06:40)
[2024-05-31 07:17] LABS: Basophils # (auto) 0 10 ^3/uL (0-0.2); Basophils % (auto) 0.3 % (0.0-2.0); Eosinophils # (auto) 0.1 10 ^3/uL (0-0.8); Eosinophils % (auto) 0.7 % (0.0-7.0); Hemoglobin 12.9 g/dL (12.2-16.2); Lymphocytes # (auto) 1.9 10 ^3/uL (0.4-5.4); Lymphocytes % (auto) 21.6 % (10.0-50.0); Mean Corpuscular Hemoglobin 33.7 pg (28.0-32.0); Mean Corpuscular Hgb Conc. 35.8 g/dL (32.0-36.0); Monocytes # (auto) 0.6 10 ^3/uL (0-1.3); Monocytes % (auto) 6.3 % (0.0-12.0); Neutrophils # (auto) 6.3 10 ^3/uL (1.6-8.6); Neutrophils % (auto) 71.1 % (37.0-80.0); Nucleated Red Blood Cells % 0.1 %; Platelet Count (auto) 176 10^3/uL (140-450); Red Blood Cells 3.83 10^6/uL (4.0-5.20); Red Cell Distribution Width 12.9 % (11.8-14.3); White Blood Cell 8.8 10^3/uL (4.4-10.8)
[2024-05-31 07:39] LABS: Alanine Aminotransferase 15 U/L (7-40); Albumin 4.2 g/dL (3.2-4.8); Alkaline Phosphatase 80 U/L (46-116); Anion Gap 8 (5-15); BUN/Creatinine Ratio 16.7 (10.0-20.0); Blood Urea Nitrogen 11 mg/dL (9-23); Calcium 9.5 mg/dL (8.7-10.4); Carbon Dioxide 26 mmol/L (20-31); Chloride 104 mmol/L (98-107); Glucose 86 mg/dL (74-106); Sodium 138 mmol/L (136-145); Total Protein 6.6 g/dL (5.7-8.2)
[2024-05-31 07:40] LABS: Bilirubin, Total 0.9 mg/dL (0.2-1.0)
[2024-05-31 07:44] LABS: Aspartate Aminotransferase < 8 U/L (13-40)
[2024-05-31] MEDS: KETOROLAC TROMETH 30 MG/ML 1ML VIAL IV PRN (09:46)
[2024-05-31] MEDS: MORPHINE SULFATE INJ 2 MG/ml SYRG IV PRN (14:02)
--- NOTE | 2024-05-31 15:23 | DVHPNRES ---
Progress Note Date Seen: May 31, 2024 Resident Creating Document: JUVENTINO JORGE RESIDENT Has the PT tested + for MRSA If YES, has PT been informed?: No Medical Necessity Reason Pt with a Central, PICC or Fol: No Subjective Review of Systems A 48-year-old female with past medical history of asthma, fibroids, diverticulosis who comes in due to abdominal pain. Patient was discharged from the [facility] on 05/25/2024, per patient she has been experiencing abdominal pain since her discharge which is constant and progressively worsening, she describes it as burning in nature and 10/10 in intensity without any relieving factors and worsened with walking. Patient went to appendectomy on nov 2023, no diarrhea no constipation. Associated symptoms include nausea, fatigue, fever, chills, palpitations and urinary frequency. Patient was noted to have tachycardia of 129 and a white cell count of 11.3 at admission . Patient was started on LR at 30 cc/kg per hour along with IV metronidazole and IV ciprofloxacin. Past Medical History Asthma, fibroids, diverticulosis Past Surgical History Appendectomy, cholecystectomy, hysterectomy, abdominal plasty Family History Diabetes, hyperlipidemia, hypertension Smoke: No ALCOHOL: none Drugs: None Lives: with Family 05/31/24: CT scan IV and oral contrast: Mixed density loculated masslike collection in the right lower quadrant adjacent to postsurgical changes estimated 7.9 x 4.3 cm with surrounding fat stranding. Findings may be on the basis of abscess or hematoma. Surgery was consulted and they advised percutaneous drainage, IR is consulted Objective vital signs Vital Sign Date Time Temp Pulse Resp B/P (MAP) Pulse Ox O2 Delivery O2 Flow Rate FiO2 05/31/24 14:02 89 20 106/61 05/31/24 12:54 98.4 96 98.4 05/31/24 08:00 Room Air* 0 21 Total Intake and Output 05/30/24 05/30/24 05/31/24 15:00 23:00 07:00 Intake Total 300 ml Balance 300 ml medications Current Medications Medications Dose Ordered Sig/Liane Route Start Time Stop Time Status Last Admin Dose Admin Acetaminophen 325 mg Q4HP PRN PO 05/30/24 21:45 05/31/24 03:51 325 MG Ondansetron HCl 4 mg Q4HP PRN IV 05/30/24 21:45 Ciprofloxacin 200 ml @ 200 mls/hr Q12HR IV 05/31/24 09:00 Metronidazole 100 ml @ 100 mls/hr Q8HR IV 05/31/24 06:00 05/31/24 13:51 100 MLS/HR Atorvastatin Calcium 40 mg HS PO 05/31/24 22:00 Trazodone HCl 100 mg HS PO 05/30/24 22:00 05/30/24 23:04 100 MG Ketorolac Tromethamine 15 mg Q6HPRN PRN IV 05/31/24 09:00 06/05/24 08:59 05/31/24 09:46 15 MG Morphine Sulfate 1 mg Q2HP PRN IV 05/31/24 09:00 05/31/24 14:02 1 MG Examination General Appearance: Alert, Oriented X3, Cooperative, moderate distress HEENT: Atraumatic, PERRLA, EOMI, Other (Dry mucous membranes) Respiratory: Clear to auscultation, Normal air movement Cardiovascular: Normal S1, Normal S2, Other (Tachycardia) Abdominal: Normal bowel sounds, Soft, Other (Severe generalized tenderness in the lower abdomen. Right-sided back muscle spasm and tenderness noted) Skin: No significant lesion Neuro: Normal gait, Normal speech, Strength at 5/5 X4 ext, Sensation intact Psych/Mental Status: Mental status NL, Mood NL laboratory and microbiology Laboratory Tests 05/31/24 06:45 Test 05/31/24 06:45 Range/Units Serum Glucose 86 74-106 mg/dL Problem List/Assessment/Plan Problem List/Assessment/Plan Acute intractable abdominal pain due to RLQ abscess vs hematoma? Intrabdominal abcess Sepsis due to above History of diverticulosis History of cholecystectomy 2 years ago, appendectomy in November 2023 History of hysterectomy without salpingo-oophorectomy - CT chest abdomen pelvis with IV and oral contrast: Mixed density loculated masslike collection in the right lower quadrant adjacent to postsurgical changes estimated 7.9 x 4.3 cm with surrounding fat stranding. Findings may be on the basis of abscess or hematoma. Correlation with clinical history is recommended. If the patient still has ovaries, tubal ovarian abscess may be considered. - lactated Ringer at 30 cc/kg per hour - IV ciprofloxacin, IV metronidazole - IV Zofran as needed - blood culture, stool bacterial culture, stool ova and parasite - Surgery: percutaneous drainage History of asthma, currently stable - monitor History of fibroids s/p hysterectomy Insomnia Dyslipidemia - resumed home medication trazodone 100 mg - resumed home medication atorvastatin 40 mg PUD prophylaxis: protonix 40mg DVT prophylaxis: SCDs Goals of care: Full code, discussed for >16 minutes on 05/30/2024 Plan discussed with patient Plan discussed with Dr. Carrion Plan discussed with: Patient, Other (rn) My Orders My Orders Orders - JUVENTINO JORGE Procedure Category Date Status Time * Surgical Consult CONS 05/31/24 Transmitted 08:35 Ketorolac Injection PHA 05/31/24 In Process (Toradol Injection) 09:00 Morphine Sulfate PHA 05/31/24 In Process Injection 09:00 Drug Screen LAB 05/31/24 Logged 09:08 * Radiologist Consult CONS 05/31/24 Transmitted 09:39 Electrocardigram EKG 05/31/24 Logged 10:40 Date of Service: May 31, 2024 Billing Provider: RHODA CARRION MD Common Visit Codes: [id number] INP/OBS CARE(HIGH) JUVENTINO JORGE RESIDENT May 31, 2024 15:23 RHODA CARRION MD May 31, 2024 22:33
[2024-05-31] MEDS: ATORVASTATIN 20 MG TAB PO SCH (21:36)
[2024-05-31] MEDS: CIPROFLOXACIN 400MG/200ML 200 ML IV SCH (21:36)
[2024-06-01] VITALS (9 sets, daily range): BP systolic 104–123; BP diastolic 60–76; PULSE 96–103; RESP 17–20; TEMP 98–98.8; O2SAT 95–100
[2024-06-01 04:47] LABS: Amphetamine Screen, Urine Neg (NEGATIVE); Barbiturate Scree,Urine Neg (NEGATIVE); Benzodiazephine Screen, Urine Neg (NEGATIVE); Cannabinoid Screen, Urine Neg (NEGATIVE); Cocaine Screen, Urine Neg (NEGATIVE); Opiate Scree,Urine Pos (NEGATIVE); Phencyclidine Screen, Urine Neg (NEGATIVE)
[2024-06-01 06:40] LABS: Basophils # (auto) 0 10 ^3/uL (0-0.2); Basophils % (auto) 0.4 % (0.0-2.0); Eosinophils # (auto) 0.1 10 ^3/uL (0-0.8); Eosinophils % (auto) 1.7 % (0.0-7.0); Hematocrit 35.3 % (36.0-46.0); Hemoglobin 12.4 g/dL (12.2-16.2); Lymphocytes # (auto) 2.1 10 ^3/uL (0.4-5.4); Lymphocytes % (auto) 26.7 % (10.0-50.0); Mean Corpuscular Hemoglobin 32.8 pg (28.0-32.0); Mean Corpuscular Hgb Conc. 35.1 g/dL (32.0-36.0); Mean Corpuscular Volume 93.4 fL (80.0-100.0); Monocytes # (auto) 0.5 10 ^3/uL (0-1.3); Neutrophils % (auto) 64.2 % (37.0-80.0); Platelet Count (auto) 190 10^3/uL (140-450); Red Blood Cells 3.78 10^6/uL (4.0-5.20); Red Cell Distribution Width 12.7 % (11.8-14.3); White Blood Cell 7.8 10^3/uL (4.4-10.8)
[2024-06-01 07:20] LABS: Alanine Aminotransferase 16 U/L (7-40); Alkaline Phosphatase 75 U/L (46-116); Anion Gap 9 (5-15); BUN/Creatinine Ratio 25.9 (10.0-20.0); Bilirubin, Total 0.8 mg/dL (0.2-1.0); Blood Urea Nitrogen 15 mg/dL (9-23); Carbon Dioxide 25 mmol/L (20-31); Chloride 105 mmol/L (98-107); Potassium 3.9 mmol/L (3.5-5.1); Sodium 139 mmol/L (136-145); Total Protein 6.3 g/dL (5.7-8.2)
[2024-06-01 07:24] LABS: Aspartate Aminotransferase 11 U/L (13-40); Glucose 70 mg/dL (74-106)
[2024-06-01] MEDS: ONDANSETRON HCL 4 MG/2 ML VIAL IV PRN (08:17)
--- NOTE | 2024-06-01 08:41 | ECG ---
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
--- NOTE | 2024-06-01 15:08 | DVHINCON2 ---
Date of service: Jun 01, 2024 Family History: Diabetes mellitus G8 MOTHER, Onset:Unknown G8 FATHER, Onset:Unknown Hypertension G8 FATHER, Onset:Unknown Allergies: Coded Allergies: NO KNOWN ALLERGIES (Unverified , 01/10/19) Home Meds Reported Medications Paroxetine (PAXIL TABLET) 20 Mg Tb, 1 TAB PO DAILY, #30 TAB 5 Refills 05/31/24 Rosuvastatin Calcium (Crestor) 20 Mg Tab, 25 MG PO DAILY, TAB 11/06/23 Trazodone Hcl (Trazodone Hcl) 100 Mg Tab, 100 MG PO HS, MG 06/07/21 Current Medications Current Medications Medications (Trade) Dose Ordered Sig/Liane Route PRN Reason Start Time Stop Time Status Last Admin Atorvastatin Calcium (Lipitor) 40 mg HS PO 05/31/24 22:00 05/31/24 21:36 Vital Signs Vital Signs Date Time Temp Pulse Resp B/P (MAP) Pulse Ox O2 Delivery O2 Flow Rate FiO2 06/01/24 13:23 96 18 121/63 06/01/24 12:44 98.7 96 98.7 06/01/24 08:00 Room Air* 0 21 Labs/Diagnostic Data Labs Test 06/01/24 06:05 06/01/24 04:20 05/30/24 19:46 05/30/24 18:28 Range/Units White Blood Count 7.8 4.4-10.8 10^3/uL Red Blood Count 3.78 L 4.0-5.20 10^6/uL Hemoglobin 12.4 12.2-16.2 g/dL Hematocrit 35.3 L 36.0-46.0 % Mean Corpuscular Volume 93.4 80.0-100.0 fL Mean Corpuscular Hemoglobin 32.8 H 28.0-32.0 pg Mean Corpuscular Hemoglobin Concent 35.1 32.0-36.0 g/dL Red Cell Distribution Width 12.7 11.8-14.3 % Platelet Count 190 140-450 10^3/uL Mean Platelet Volume 8.5 6.9-10.8 fL Neutrophils (%) (Auto) 64.2 37.0-80.0 % Lymphocytes (%) (Auto) 26.7 10.0-50.0 % Monocytes (%) (Auto) 7.0 0.0-12.0 % Eosinophils (%) (Auto) 1.7 0.0-7.0 % Basophils (%) (Auto) 0.4 0.0-2.0 % Neutrophils # (Auto) 5.0 1.6-8.6 10 ^3/uL Lymphocytes # (Auto) 2.1 0.4-5.4 10 ^3/uL Monocytes # (Auto) 0.5 0-1.3 10 ^3/uL Eosinophils # (Auto) 0.1 0-0.8 10 ^3/uL Basophils # (Auto) 0 0-0.2 10 ^3/uL Nucleated Red Blood Cells 0.0 % Sodium Level 139 136-145 mmol/L Potassium Level 3.9 3.5-5.1 mmol/L Chloride Level 105 98-107 mmol/L Carbon Dioxide Level 25 20-31 mmol/L Anion Gap 9 5-15 Blood Urea Nitrogen 15 9-23 mg/dL Creatinine 0.58 0.550-1.02 mg/dL Glomerular Filtration Rate Calc 112 >90 mL/min BUN/Creatinine Ratio 25.9 H 10.0-20.0 Serum Glucose 70 L 74-106 mg/dL Calcium Level 9.0 8.7-10.4 mg/dL Total Bilirubin 0.8 0.2-1.0 mg/dL Aspartate Amino Transferase (AST) 11 L 13-40 U/L Alanine Aminotransferase (ALT) 16 7-40 U/L Alkaline Phosphatase 75 46-116 U/L Total Protein 6.3 5.7-8.2 g/dL Albumin 4.0 3.2-4.8 g/dL Urine Opiates Screen Pos NEGATIVE Urine Barbiturates Screen Neg NEGATIVE Urine Phencyclidine Screen Neg NEGATIVE Urine Amphetamines Screen Neg NEGATIVE Urine Benzodiazepines Screen Neg NEGATIVE Urine Cocaine Screen Neg NEGATIVE Urine Cannabinoids Screen Neg NEGATIVE Lactic Acid Level 1.1 0.4-2.0 mmol/L Lipase 35 12-53 U/L Urine Color Light-yellow Yellow Urine Clarity Clear Clear Urine pH 6.0 5.0-9.0 Urine Specific [place] 1.012 1.001-1.035 Urine Protein Negative Negative Urine Ketones Trace Negative Urine Blood Negative Negative /uL Urine Nitrite Negative Negative Urine Bilirubin Negative Negative Urine Urobilinogen Normal Negative mg/dL Urine Leukocyte Esterase Negative Negative /uL Urine RBC 1 0 - 4 /hpf Urine Microscopic WBC 1 0-5 /HPF Urine Squamous Epithelial Cells None seen <5 /hpf Urine Bacteria None seen None Seen /hpf Urine Glucose Normal Normal mg/dL Microbiology Date/Time Source Procedure Growth Status 05/31/24 05:00 Nose MRSA Screen - Final Complete 05/30/24 21:09 Blood Blood Culture - Preliminary NO GROWTH AFTER 24 HOURS OF INCUBATION. Resulted Assessment RLQ PAIN AND TENDERNESS S/P APPENDECTOMY AND SALPINGECTOMY, CONTINUE ANTIBIOTICS, OK TO HAVE PO Plan discussed with: Patient GREGORY LEIVA MD Jun 01, 2024 15:08
--- NOTE | 2024-06-01 20:48 | DVHPNRES ---
Progress Note Date Seen: Jun 01, 2024 Resident Creating Document: JAMIE BEDOLLA RESIDENT Has the PT tested + for MRSA If YES, has PT been informed?: No Medical Necessity Reason Pt with a Central, PICC or Fol: No Medical Necessity Reason A 48-year-old female with past medical history of asthma, fibroids, diverticulosis who comes in due to abdominal pain. Patient was discharged from the [facility] on 05/25/2024, per patient she has been experiencing abdominal pain since her discharge which is constant and progressively worsening, she describes it as burning in nature and 10/10 in intensity without any relieving factors and worsened with walking. Patient went to appendectomy on nov 2023, no diarrhea no constipation. Associated symptoms include nausea, fatigue, fever, chills, palpitations and urinary frequency. Patient was noted to have tachycardia of 129 and a white cell count of 11.3 at admission . Patient was started on LR at 30 cc/kg per hour along with IV metronidazole and IV ciprofloxacin. Past Medical History: Asthma, fibroids, diverticulosis Past Surgical History: Appendectomy, cholecystectomy, hysterectomy, abdominal plasty Family History: Diabetes, hyperlipidemia, hypertension Social History : Smoke: No, ALCOHOL: none, Drugs: None and lives: with Family 05/31/24: CT scan IV and oral contrast: Mixed density loculated masslike collection in the right lower quadrant adjacent to postsurgical changes estimated 7.9 x 4.3 cm with surrounding fat stranding. Findings may be on the basis of abscess or hematoma. Surgery was consulted and they advised percutaneous drainage, IR is consulted 06/01/2024: Patient and examined today. she continues to complained of upper abdominal pain. Image was reviewed by the IR, Dr. Grayson;who told the nurse that ABSCESS/HEMATOMA IN QUESTION CAN NOT BE ACCESSED BECAUSE OF BOWEL." NO PROCEDURE INDICATED AT THIS TIME". General surgery was consulted and they also did not recommend surgery but recommended antibiotics. Subjective Review of Systems Constitutional: Denies fever no chills no feeling of malaise, HEENT: Denies headache, ear pain, ear discharges, conjunctivitis, nasal discharge throat pain Cardiovascular: Denies chest pain, palpitation, orthopnea, PND, or pedal edema Respiratory: Denies shortness of breath, cough cough, sputum production, hemoptysis, GI: abdominal pain,No nausea, vomiting, diarrhea, hematemesis, hematochezia, : Denies frequency, urgency, hematuria, Endocrine: Denies unintentional weight gain or weight loss, feeling of hot flashes, Aris: Denies easy bruising, bleeding disorders, epistaxis Musculoskeletal: Denies joint pains, muscle aches Psych: No evidence of depression, jessica, suicidal ideation Objective vital signs Vital Sign Date Time Temp Pulse Resp B/P (MAP) Pulse Ox O2 Delivery O2 Flow Rate FiO2 06/01/24 18:05 66 17 122/77 06/01/24 17:27 98.0 99 98.0 06/01/24 08:00 Room Air* 0 21 Total Intake and Output 05/31/24 05/31/24 06/01/24 15:00 23:00 07:00 Intake Total 300 ml 100 ml Balance 300 ml 100 ml medications Current Medications Medications Dose Ordered Sig/Liane Route Start Time Stop Time Status Last Admin Dose Admin Acetaminophen 325 mg Q4HP PRN PO 05/30/24 21:45 05/31/24 03:51 325 MG Ondansetron HCl 4 mg Q4HP PRN IV 05/30/24 21:45 06/01/24 18:02 4 MG Ciprofloxacin 200 ml @ 200 mls/hr Q12HR IV 05/31/24 09:00 06/01/24 08:47 200 MLS/HR Metronidazole 100 ml @ 100 mls/hr Q8HR IV 05/31/24 06:00 06/01/24 12:53 100 MLS/HR Atorvastatin Calcium 40 mg HS PO 05/31/24 22:00 05/31/24 21:36 40 MG Trazodone HCl 100 mg HS PO 05/30/24 22:00 05/31/24 21:36 100 MG Ketorolac Tromethamine 15 mg Q6HPRN PRN IV 05/31/24 09:00 06/05/24 08:59 05/31/24 09:46 15 MG Morphine Sulfate 1 mg Q2HP PRN IV 05/31/24 09:00 06/01/24 18:05 1 MG Examination General Appearance: Alert, Oriented X3, Cooperative, moderate distress HEENT: Atraumatic, PERRLA, EOMI, Other (Dry mucous membranes) Respiratory: Clear to auscultation, Normal air movement Cardiovascular: Normal S1, Normal S2, Other (Tachycardia) Abdominal: Normal bowel sounds, Soft, Other: Severe generalized tenderness in the lower abdomen. Right-sided back muscle spasm and tenderness noted Skin: No significant lesion Neuro: Normal gait, Normal speech, Strength at 5/5 X4 ext, Sensation intact Psych/Mental Status: Mental status NL, Mood NL laboratory and microbiology Laboratory Tests 06/01/24 06:05 Test 06/01/24 06:05 Range/Units Serum Glucose 70 L 74-106 mg/dL Microbiology Date/Time Source Procedure Growth Status 05/31/24 05:00 Nose MRSA Screen - Final Complete 05/30/24 21:09 Blood Blood Culture - Preliminary NO GROWTH AFTER 24 HOURS OF INCUBATION. Resulted Problem List/Assessment/Plan Problem List/Assessment/Plan Assessment Acute intractable abdominal pain due to RLQ abscess vs hematoma? Intrabdominal abcess Sepsis due to above History of diverticulosis History of cholecystectomy 2 years ago, appendectomy in November 2023 History of hysterectomy without salpingo-oophorectomy - CT chest abdomen pelvis with IV and oral contrast: Mixed density loculated masslike collection in the right lower quadrant adjacent to postsurgical changes estimated 7.9 x 4.3 cm with surrounding fat stranding. Findings may be on the basis of abscess or hematoma. Correlation with clinical history is recommended. If the patient still has ovaries, tubal ovarian abscess may be considered. - lactated Ringer at 30 cc/kg per hour - IV ciprofloxacin, IV metronidazole - IV Zofran as needed - blood culture, stool bacterial culture, stool ova and parasite - Surgery: percutaneous drainage --> IR and General surgery recommendation: No intervention at this time Obesity grade 1 --> BMI 32.9 History of asthma, currently stable - monitor History of fibroids s/p hysterectomy Insomnia ---> resumed home medication trazodone 100 mg Dyslipidemia --> resumed home medication atorvastatin 40 mg PUD prophylaxis: protonix 40mg DVT prophylaxis: SCDs Goals of care: Full code, discussed for >16 minutes Plan discussed with patient and Plan discussed + Dr. Carrion Plan discussed with: Patient, Spouse Dietary Evaluation Review Comments: 1) Advance diet as medically feasible 2) Continue current plan of care Expected Outcomes/Goals: To meet >75% estimated needs Fu 2-3 days Date of Service: Jun 01, 2024 Billing Provider: RHODA CARRION MD Common Visit Codes: [id number] INP/OBS CARE(HIGH) JAMIE BEDOLLA RESIDENT Jun 01, 2024 20:48 RHODA CARRION MD Jun 02, 2024 21:19
[2024-06-02] VITALS (7 sets, daily range): BP systolic 107–135; BP diastolic 62–86; PULSE 90–104; RESP 17–20; TEMP 97.4–98.1; O2SAT 96–100
[2024-06-02] MEDS: GADOTERATE MEG 10 MMOL/20ml INJ (0.5MMOL/ml) IV ONE (09:14)
--- NOTE | 2024-06-02 11:46 | DVHPN2 ---
Subjective Date Seen: Jun 02, 2024 Post op day Post op day: 0 Patient reports: No new complaints Nursing reports: No new complaints General: Normal HNT: Normal Cardiovascular: Normal Respiratory: Normal Gastrointestinal: Abdominal Pain Genitourinary: Normal Musculoskeletal: Normal Neurological: Normal Objective Vitals Vital Sign Date Time Temp Pulse Resp B/P (MAP) Pulse Ox O2 Delivery O2 Flow Rate FiO2 06/02/24 09:00 98.0 91 17 107/68 (81) 97 98.0 06/01/24 23:38 Room Air* 0 21 Total Intake and Output 06/01/24 06/01/24 06/02/24 15:00 23:00 07:00 Intake Total 200 ml 300 ml 100 ml Balance 200 ml 300 ml 100 ml Medications Current Medications Medications Dose Ordered Sig/Liane Route Start Time Stop Time Status Last Admin Dose Admin Acetaminophen 325 mg Q4HP PRN PO 05/30/24 21:45 05/31/24 03:51 325 MG Ondansetron HCl 4 mg Q4HP PRN IV 05/30/24 21:45 06/01/24 18:02 4 MG Ciprofloxacin 200 ml @ 200 mls/hr Q12HR IV 05/31/24 09:00 06/02/24 08:34 200 MLS/HR Metronidazole 100 ml @ 100 mls/hr Q8HR IV 05/31/24 06:00 06/02/24 05:55 100 MLS/HR Atorvastatin Calcium 40 mg HS PO 05/31/24 22:00 06/01/24 21:10 40 MG Trazodone HCl 100 mg HS PO 05/30/24 22:00 06/01/24 21:10 100 MG Ketorolac Tromethamine 15 mg Q6HPRN PRN IV 05/31/24 09:00 06/05/24 08:59 05/31/24 09:46 15 MG Morphine Sulfate 1 mg Q2HP PRN IV 05/31/24 09:00 06/02/24 08:47 1 MG General: Normal, Well developed Head/Eyes: Normal ENT: Normal Neck: Normal, Supple, No JVD Abdominal: Soft, Other Abdomen quadrants: RLQ Tenderness Skin: Normal, Normal inspection, Normal color Labs and Microbiology Laboratory Tests 06/01/24 06:05 Test 06/01/24 06:05 Range/Units Serum Glucose 70 L 74-106 mg/dL Ass/Plan Problem List Assessment Acute intractable abdominal pain due to RLQ abscess vs hematoma? Intrabdominal abcess Sepsis due to above History of diverticulosis History of cholecystectomy 2 years ago, appendectomy in November 2023 History of hysterectomy without salpingo-oophorectomy - CT chest abdomen pelvis with IV and oral contrast: Mixed density loculated masslike collection in the right lower quadrant adjacent to postsurgical changes estimated 7.9 x 4.3 cm with surrounding fat stranding. Findings may be on the basis of abscess or hematoma. Correlation with clinical history is recommended. If the patient still has ovaries, tubal ovarian abscess may be considered. - lactated Ringer at 30 cc/kg per hour - IV ciprofloxacin, IV metronidazole - IV Zofran as needed - blood culture, stool bacterial culture, stool ova and parasite - Surgery: percutaneous drainage --> IR and General surgery recommendation: No intervention at this time Obesity grade 1 --> BMI 32.9 History of asthma, currently stable - monitor History of fibroids s/p hysterectomy Insomnia ---> resumed home medication trazodone 100 mg Dyslipidemia --> resumed home medication atorvastatin 40 mg PUD prophylaxis: protonix 40mg DVT prophylaxis: SCDs Goals of care: Full code, discussed for >16 minutes Plan discussed with patient and Plan discussed + Dr. Dooley Problems(with codes): (1) Intractable abdominal pain Assessment/Plan patient complaint of mid to right lower abdominal pain denies nausea, fevers or vomiting abdomen tender to mid and right lower quadrant plan: pending MRI report continue IV antibiotics will see patient tomorrow am Prognosis: Good Plan discussed with patient , Dr. Quezada Visit Coding Surgery Date of Service if different f: Jun 02, 2024 Billing Provider: GREGORY QUEZADA MD Surgery Visit Codes: [id number] INP/OBS CARE(HIGH) DILCIA WAGGONER NP Jun 02, 2024 11:46
--- NOTE | 2024-06-02 12:58 | DVH ---
EXAM: MRI PELVIS WO W CONTRAST MRI; DATE: 06/02/2024 10:31 AM HISTORY: RIGHT LOWER QUADRANT ABCESS COMPARISON: CT scan dated 05/31/2024, MRI PELVIS WITH CONTRAST MRI on DOS: 11/08/23, US PELVIC on DOS: 11/06/23 TECHNIQUE: Multiplanar, multisequence MRI was performed. FINDINGS: There is redemonstration of a bottle shaped peripherally enhancing fluid collection in the pelvis wit h a base in midline pelvis and the neck and head extending to the right lower quadrant measuring 7.5 cm in transverse, 4.7 cm in AP and 7.3 cm in craniocaudal with extensive surrounding inflammation. Mo derate soft tissue edema and enhancement noted along the right pelvic sidewall. No prominent lymph no de is identified. The uterus is not identified. The right ovary is not identified. The left ovary is unremarkable. The appendix is not identified. No significant free fluid noted in the lower abdomen or pelvis. Moderate presacral edema is noted. Mild mural thickening of the adjacent small bowel wall n oted. Liquid stool seen in the lumen of the rectum. Sigmoid diverticula without signs of diverticuli tis. IMPRESSION: 1. Redemonstration of a large, 7.5 x 4.7 x 7.3 cm lobular complex fluid collection in the pelvis exte nding to the right lower quadrant extensive surrounding inflammatory changes which is more pronounced along the right pelvic sidewall this is most compatible with an abscess. Drainage is recommended.
--- NOTE | 2024-06-02 13:09 | DVHPN2 ---
Subjective seen today during rounds, clinical improvement, however repeat MRI with collection likely abscess, plan for surg vs IR, likely surgery Changes from previous H/P or p: No Changes Eyes: No Pain, No Vision change, No Conjunctivae inflammation, No Eyelid inflammation, No Other, No Redness ENT: No Ear pain, No Ear discharge, No Nose pain, No Nose discharge, No Nose congestion, No Mouth pain, No Mouth swelling, No Throat pain, No Throat swelling, No Other Cardiovascular: No Chest Pain; Palpitations; No Orthopnea, No Paroxysmal Noc. Dyspnea, No Edema, No Lt Headedness, No Other Respiratory: No Cough, No Dry, No Shortness of breath, No SOB with excertion, No Wheezing, No Hemoptysis, No Pleuritic Pain, No Sputum, No Other Gastrointestinal: Nausea; No Vomiting, No Abdominal Pain, No Diarrhea, No Constipation, No Melena, No Hematochezia, No Other Genitourinary: No Dysuria; Frequency; No Incontinence, No Hematuria, No Retention, No Other Musculoskeletal: No other, No neck pain, No shoulder pain, No arm pain, No back pain, No hand pain, No leg pain, No foot pain Skin: No Rash, No Lesions, No Jaundice, No Bruising, No Other Objective Vitals Vital Signs Date Time Temp Pulse Resp B/P (MAP) Pulse Ox O2 Delivery O2 Flow Rate FiO2 06/02/24 09:00 98.0 91 17 107/68 (81) 97 98.0 06/02/24 08:00 Room Air* 0 21 Intake/Output Intake and Output 06/02/24 07:00 Intake Total 600 ml Balance 600 ml IV Total 600 ml # Voids 5 # Bowel Movements 3 Medications Current Medications Medications Dose Ordered Sig/Liane Route Start Time Stop Time Status Last Admin Dose Admin Acetaminophen 325 mg Q4HP PRN PO 05/30/24 21:45 05/31/24 03:51 325 MG Ondansetron HCl 4 mg Q4HP PRN IV 05/30/24 21:45 06/01/24 18:02 4 MG Ciprofloxacin 200 ml @ 200 mls/hr Q12HR IV 05/31/24 09:00 06/02/24 08:34 200 MLS/HR Metronidazole 100 ml @ 100 mls/hr Q8HR IV 05/31/24 06:00 06/02/24 05:55 100 MLS/HR Atorvastatin Calcium 40 mg HS PO 05/31/24 22:00 06/01/24 21:10 40 MG Trazodone HCl 100 mg HS PO 05/30/24 22:00 06/01/24 21:10 100 MG Ketorolac Tromethamine 15 mg Q6HPRN PRN IV 05/31/24 09:00 06/05/24 08:59 06/02/24 11:57 15 MG Morphine Sulfate 1 mg Q2HP PRN IV 05/31/24 09:00 06/02/24 08:47 1 MG Laboratory Results Laboratory Tests 06/01/24 06:05 Urinalysis Test 05/30/24 18:28 Urine Color Light-yellow (Yellow) Urine Clarity Clear (Clear) Urine pH 6.0 (5.0-9.0) Urine Specific [place] 1.012 (1.001-1.035) Urine Protein Negative (Negative) Urine Ketones Trace (Negative) Urine Blood Negative /uL (Negative) Urine Nitrite Negative (Negative) Urine Bilirubin Negative (Negative) Urine Urobilinogen Normal mg/dL (Negative) Urine Leukocyte Esterase Negative /uL (Negative) Urine RBC 1 /hpf (0 - 4) Urine Microscopic WBC 1 /HPF (0-5) Urine Squamous Epithelial Cells None seen /hpf (<5) Urine Bacteria None seen /hpf (None Seen) Urine Glucose Normal mg/dL (Normal) Microbiology Microbiology Date/Time Source Procedure Growth Status 05/31/24 05:00 Nose MRSA Screen - Final Complete 05/30/24 21:09 Blood Blood Culture - Preliminary NO GROWTH AFTER 48 HOURS OF INCUBATION. Resulted Assessment/Plan Assessment/Plan Acute intractable abdominal pain due to RLQ abscess vs hematoma? Intrabdominal abcess Sepsis due to above History of diverticulosis History of cholecystectomy 2 years ago, appendectomy in November 2023 History of hysterectomy without salpingo-oophorectomy - CT chest abdomen pelvis with IV and oral contrast: Mixed density loculated masslike collection in the right lower quadrant adjacent to postsurgical changes estimated 7.9 x 4.3 cm with surrounding fat stranding. Findings may be on the basis of abscess or hematoma. Correlation with clinical history is recommended. If the patient still has ovaries, tubal ovarian abscess may be considered. - lactated Ringer at 30 cc/kg per hour - IV ciprofloxacin, IV metronidazole - IV Zofran as needed - blood culture, stool bacterial culture, stool ova and parasite --> IR and General surgery recommendation: No intervention at this time repeat MRI with abscess, possible surgery Obesity grade 1 --> BMI 32.9 History of asthma, currently stable - monitor History of fibroids s/p hysterectomy Insomnia ---> resumed home medication trazodone 100 mg Dyslipidemia --> resumed home medication atorvastatin 40 mg PUD prophylaxis: protonix 40mg DVT prophylaxis: SCDs Plan discussed with: Patient, Spouse Date of Service: Jun 02, 2024 Billing Provider: RHODA CARRION MD Common Visit Codes: [id number] INP/OBS CARE(HIGH) RHODA CARRION MD Jun 02, 2024 13:09
[2024-06-02 17:37] LABS: INR 1.18 (0.9-1.15); Partial Thromboplastin Time 32.3 SEC (24.5-34.5); Prothrombin Time 12.3 sec (9.3-11.8)
[2024-06-03] VITALS (10 sets, daily range): BP systolic 106–124; BP diastolic 50–72; PULSE 67–110; RESP 10–18; TEMP 97.7–98.1; O2SAT 92–99
[2024-06-03 06:22] LABS: Basophils # (auto) 0 10 ^3/uL (0-0.2); Basophils % (auto) 0.4 % (0.0-2.0); Eosinophils # (auto) 0.2 10 ^3/uL (0-0.8); Eosinophils % (auto) 2.4 % (0.0-7.0); Lymphocytes # (auto) 1.6 10 ^3/uL (0.4-5.4); Lymphocytes % (auto) 19.8 % (10.0-50.0); Mean Corpuscular Hemoglobin 33.3 pg (28.0-32.0); Mean Corpuscular Hgb Conc. 36.1 g/dL (32.0-36.0); Mean Corpuscular Volume 92.3 fL (80.0-100.0); Monocytes # (auto) 0.5 10 ^3/uL (0-1.3); Monocytes % (auto) 5.7 % (0.0-12.0); Neutrophils % (auto) 71.7 % (37.0-80.0); Nucleated Red Blood Cells % 0.5 %; Platelet Count (auto) 213 10^3/uL (140-450); Red Cell Distribution Width 12.4 % (11.8-14.3); White Blood Cell 8.3 10^3/uL (4.4-10.8)
[2024-06-03 06:27] LABS: INR 1.16 (0.9-1.15); Partial Thromboplastin Time 32.8 SEC (24.5-34.5); Prothrombin Time 12.1 sec (9.3-11.8)
[2024-06-03 06:31] LABS: Calcium 9.1 mg/dL (8.7-10.4); Chloride 104 mmol/L (98-107); Potassium 3.9 mmol/L (3.5-5.1); Sodium 138 mmol/L (136-145)
[2024-06-03 06:32] LABS: Anion Gap 10 (5-15); Carbon Dioxide 24 mmol/L (20-31)
[2024-06-03 06:37] LABS: BUN/Creatinine Ratio 19.4 (10.0-20.0); Blood Urea Nitrogen 12 mg/dL (9-23)
[2024-06-03 06:43] LABS: Glucose 71 mg/dL (74-106)
[2024-06-03] MEDS: ONDANSETRON HCL 4 MG/2 ML VIAL IV ONE (08:45)
[2024-06-03] MEDS ORDERED: HYDROmorphone HCL 2 MG/ML VL/or syr IV PRN ×2 (08:45)
[2024-06-03] MEDS ORDERED: GLYCOPYRROLATE 0.2 MG/ML 1ML VIAL ONE (08:50)
[2024-06-03] MEDS ORDERED: MIDAZOLAM HCL 2MG/2ML 2ml VIAL (1mg/ml) ONE (08:50)
[2024-06-03] MEDS ORDERED: LIDOCAINE HCL 100 MG/5ML (2%) SYRG INJ IV ONE (08:50)
[2024-06-03] MEDS ORDERED: fentaNYL CITRATE 100 MCG/2 ML VL ONE (08:50)
[2024-06-03] MEDS ORDERED: ROCURONIUM 10MG/ML 10ML VIAL IV ONE (08:50)
[2024-06-03] MEDS ORDERED: PROPOFOL 10 MG/ML 20 ML IV ONE (08:50)
[2024-06-03] MEDS ORDERED: KETAMINE 50mg/ML 1ml syringe ONE (08:51)
[2024-06-03] MEDS ORDERED: METOCLOPRAMIDE HCL 5MG/ml INJ 2ml VIAL ONE (08:53)
[2024-06-03] MEDS ORDERED: DexAMETHasone SOD PHOS 10MG/1ML VIAL INJ ONE (08:53)
[2024-06-03] MEDS ORDERED: ONDANSETRON HCL 4 MG/2 ML VIAL ONE (08:53)
[2024-06-03] MEDS ORDERED: SUGAMMADEX 200mg/2ml Vial (100MG/ML) IV ONE (08:53)
--- NOTE | 2024-06-03 08:58 | DVH ---
EXAM: XR Chest, 1 View CLINICAL INDICATION: PRE PROCEDURE TECHNIQUE: Frontal view of the chest. COMPARISON: CHEST XRAY 1 VIEW on DOS: 06/08/21, CXR1 on DOS: 06/08/21 FINDINGS: LUNGS AND PLEURAL SPACES: Unremarkable. No consolidation. No pneumothorax. HEART: Unremarkable. No cardiomegaly. MEDIASTINUM: Unremarkable. Normal mediastinal contour. BONES/JOINTS: Unremarkable. No acute fracture. OTHER FINDINGS: . None. IMPRESSION: No acute cardiopulmonary process.
[2024-06-03] MEDS ORDERED: LIDOCAINE 1% INJ PF 5ML AMP ONE (09:12)
[2024-06-03] MEDS ORDERED: HYDROmorphone HCL 2 MG/ML VL/or syr ONE (09:33)
[2024-06-03] MEDS ORDERED: ACETAMINOPHEN/CODEINE#3 (300/30mg) TAB PO PRN (10:15)
--- NOTE | 2024-06-03 10:22 | DVHOP ---
DATE OF SURGERY: 06/03/2024 PREOPERATIVE DIAGNOSIS: Right pelvic abscess. POSTOPERATIVE DIAGNOSIS: Right pelvic hematoma with infection. SURGEON: Donny Quezada MD ARCHITECTURE INTERN: Kailash Weems NP ANESTHESIA: General endotracheal, DIRECTOR OF THERAPY SERVICES. PROCEDURES: * Exploratory laparotomy. * Excision of right pelvic abscess. DESCRIPTION OF PROCEDURE: Under adequate anesthesia with the patient's skin prepped and draped, a midline incision was made and the exploration of the abdomen revealed the mass that was identified by MRI preoperatively. It was a bottle-shaped concretion of what appeared to be an infected hematoma. This was traced to its origin which was a blood vessel emanating from the mesentery, possibly the appendiceal artery. The bottle-shaped concretion was secured and clamped at its base by a right-angle clamp and then amputated and submitted. The tissue residual at the base of this concretion was ligated. The pelvis was profusely irrigated. Bowel was inspected. There was no evidence of bowel leak. There was no evidence of injury to the serosal surfaces. Following further irrigation, the irrigant was aspirated. There was complete hemostasis at the termination of the procedure. A 10 mm Luis Felipe-Medrano drain was inserted into the pelvis and exteriorized through a separate incision, secured with a 2-0 nylon suture. Subsequently, the abdominal wall was approximated using #1 double-stranded PDS with great caution exercised so as to minimize the potential for any injury to the underlying bowel. The subcutaneous tissues and skin were then approximated using Monocryl sutures, Dermabond glue, and Steri-Strips. The patient remained stable throughout the procedure, left the operating room following an accurate needle and sponge count. The patient's was thoroughly informed by phone. MD KURT Webber/CLINT TID: [id number] RECEIPT: [id number]
[2024-06-03] MEDS: HYDROmorphone HCL 2 MG/ML VL/or syr IV PRN (10:37)
[2024-06-03] MEDS: D5W/SOD CHL 0.45%/KCL 20MEQ 1,000 ML IV SCH (12:24)
[2024-06-03] MEDS: HYDROMORPHONE HCL 1 MG/ML INJ IV PRN (14:12)
--- NOTE | 2024-06-03 16:30 | DVHPNRES ---
Progress Note Date Seen: Jun 03, 2024 Resident Creating Document: JAMIE BEDOLLA RESIDENT Has the PT tested + for MRSA If YES, has PT been informed?: No Medical Necessity Reason Pt with a Central, PICC or Fol: No Medical Necessity Reason A 48-year-old female with past medical history of asthma, fibroids, diverticulosis who comes in due to abdominal pain. Patient was discharged from the [facility] on 05/25/2024, per patient she has been experiencing abdominal pain since her discharge which is constant and progressively worsening, she describes it as burning in nature and 10/10 in intensity without any relieving factors and worsened with walking. Patient went to appendectomy on nov 2023, no diarrhea no constipation. Associated symptoms include nausea, fatigue, fever, chills, palpitations and urinary frequency. Patient was noted to have tachycardia of 129 and a white cell count of 11.3 at admission . Patient was started on LR at 30 cc/kg per hour along with IV metronidazole and IV ciprofloxacin. Past Medical History: Asthma, fibroids, diverticulosis Past Surgical History: Appendectomy, cholecystectomy, hysterectomy, abdominal plasty Family History: Diabetes, hyperlipidemia, hypertension Social History : Smoke: No, ALCOHOL: none, Drugs: None and lives with Family 05/31/24: CT scan IV and oral contrast: Mixed density loculated masslike collection in the right lower quadrant adjacent to postsurgical changes estimated 7.9 x 4.3 cm with surrounding fat stranding. Findings may be on the basis of abscess or hematoma. Surgery was consulted and they advised percutaneous drainage, IR is consulted 06/01/2024: Patient and examined today. she continues to complained of upper abdominal pain. Image was reviewed by the IR, Dr. Grayson;who told the nurse that ABSCESS/HEMATOMA IN QUESTION CAN NOT BE ACCESSED BECAUSE OF BOWEL." NO PROCEDURE INDICATED AT THIS TIME". General surgery was consulted and they also did not recommend surgery but recommended antibiotics. 06/03/2024 This morning patient was taken into the OR. she is currently status post E xploratory laparotomy and Excision of right pelvic abscess. Surgery went well. No complication reported. Fluid running at 120 mL/hour. We will repeat lab in the morning and follow up appropriately. Subjective Review of Systems Constitutional: Denies fever no chills no feeling of malaise HEENT: Denies headache, ear pain, ear discharges, conjunctivitis, nasal discharge throat pain Cardiovascular: Denies chest pain, palpitation, orthopnea, PND, or pedal edema Respiratory: Denies shortness of breath, cough cough, sputum production, hemoptysis, GI: abdominal incision site pain, no nausea, vomiting, diarrhea, hematemesis, hematochezia, : Denies frequency, urgency, hematuria, Endocrine: Denies unintentional weight gain or weight loss, feeling of hot flashes, Aris: Denies easy bruising, bleeding disorders, epistaxis Musculoskeletal: Denies joint pains, muscle aches Psych: No evidence of depression, jessica, suicidal ideation Objective vital signs Vital Sign Date Time Temp Pulse Resp B/P (MAP) Pulse Ox O2 Delivery O2 Flow Rate FiO2 06/03/24 14:12 81 16 106/50 06/03/24 13:00 97.8 96 97.8 06/03/24 10:46 Nasal Cannula 2.0 96 Total Intake and Output 06/02/24 06/02/24 06/03/24 15:00 23:00 07:00 Intake Total 300 ml 300 ml 400 ml Balance 300 ml 300 ml 400 ml medications Current Medications Medications Dose Ordered Sig/Liane Route Start Time Stop Time Status Last Admin Dose Admin Acetaminophen 325 mg Q4HP PRN PO 05/30/24 21:45 06/02/24 15:55 325 MG Ciprofloxacin 200 ml @ 200 mls/hr Q12HR IV 05/31/24 09:00 06/02/24 21:18 200 MLS/HR Metronidazole 100 ml @ 100 mls/hr Q8HR IV 05/31/24 06:00 06/03/24 14:11 100 MLS/HR Atorvastatin Calcium 40 mg HS PO 05/31/24 22:00 06/02/24 21:21 40 MG Trazodone HCl 100 mg HS PO 05/30/24 22:00 06/02/24 21:20 100 MG Ketorolac Tromethamine 15 mg Q6HPRN PRN IV 05/31/24 09:00 06/05/24 08:59 06/02/24 11:57 15 MG Morphine Sulfate 1 mg Q2HP PRN IV 05/31/24 09:00 Hold 06/02/24 22:29 1 MG Potassium Chloride/Dextrose/ Sod Cl 1,000 ml @ 120 mls/hr Q8H20M IV 06/03/24 10:15 06/03/24 12:24 120 MLS/HR Ceftriaxone Sodium 50 ml @ 100 mls/hr DAILY@09 IV 06/04/24 09:00 Hydromorphone HCl 1 mg Q3HPRN PRN IV 06/03/24 10:15 06/03/24 14:12 1 MG Ondansetron HCl 4 mg Q4HPRN PRN IV 06/03/24 10:15 Pantoprazole Sodium 40 mg DAILY IV 06/04/24 10:00 Acetaminophen/ Codeine Phosphate 1 tab Q4HP PRN PO 06/05/24 09:00 Examination General Appearance: Alert, Oriented X3, Cooperative, No acute distress HEENT: Atraumatic, PERRLA, EOMI, Mucous membrane moist/pink Respiratory: Clear to auscultation, Normal air movement Cardiovascular: Regular rate, Normal S1, Normal S2, No murmurs, no chest wall tenderness Abdominal: NO distention, no tenderness, bowel sounds present, no scars noted, wound dressing in place; RYAN drain in place Extremities: No clubbing, No cyanosis, No edema, Normal pulses, No tenderness/swelling Skin: No rashes, No breakdown, No significant lesion Neuro: Normal gait, Normal speech, Strength at 5/5 X4 ext, Normal tone, Sensation intact, Cranial nerves 3-12 NL, Reflexes 2+ Psych/Mental Status: Mental status NL, Mood NL laboratory and microbiology Laboratory Tests 06/03/24 05:20 Test 06/03/24 05:20 Range/Units Serum Glucose 71 L 74-106 mg/dL Microbiology Date/Time Source Procedure Growth Status 05/31/24 05:00 Nose MRSA Screen - Final Complete 05/30/24 21:09 Blood Blood Culture - Preliminary NO GROWTH AFTER 72 HOURS OF INCUBATION. Resulted Labs and/or images reviewed: Labs reviewed by me, Image(s) reviewed by me Problem List/Assessment/Plan Problem List/Assessment/Plan Assessment Acute intractable abdominal pain due to intra-abdominal abscess Intraabdominal abscess status exploratory laparotomy and excision of right pelvic abscess on June 03, 2024 Sepsis due to above History of diverticulosis History of cholecystectomy 2 years ago, appendectomy in November 2023 History of hysterectomy without salpingo-oophorectomy - CT chest abdomen pelvis with IV and oral contrast: Mixed density loculated masslike collection in the right lower quadrant adjacent to postsurgical changes estimated 7.9 x 4.3 cm with surrounding fat stranding. Findings may be on the basis of abscess or hematoma. Correlation with clinical history is recommended. If the patient still has ovaries, tubal ovarian abscess may be considered. - lactated Ringer at 30 cc/kg per hour - IV ciprofloxacin, IV metronidazole - IV Zofran as needed - blood culture: No growth - Surgery 06/03/2024: PROCEDURES: Exploratory laparotomy. Excision of right pelvic abscess. Obesity grade 1 --> BMI 32.9 History of asthma, currently stable - monitor History of fibroids s/p hysterectomy Insomnia ---> resumed home medication trazodone 100 mg Dyslipidemia --> resumed home medication atorvastatin 40 mg PUD prophylaxis: Protonix 40mg DVT prophylaxis: [facility] Goals of care: Full code, discussed for 20 minutes Plan discussed with patient and Plan discussed with Dr. Hurtado Plan discussed with: Patient, Other (Nurse) Dietary Evaluation Review Comments: 1) Advance diet as medically feasible 2) Continue current plan of care Expected Outcomes/Goals: To meet >75% estimated needs Fu 2-3 days Addendum Addendum Addendum I was physically present for the garcia portions of the service provided to patient by THE RESIDENT. I have reviewed the documentation, discussed the case with resident and agree with the resident's documentation except as noted. Also the patient's clinical case was discussed with the patient's nurse. This medical document was created using an electronic medical record system with computerized dictation system. Although this document has been carefully reviewed, there might still be some phonetic and typographical errors. These areas are purely typographical due to imperfections of the software programs, and do not reflect any compromise in the patient's medical care. Late signature. Date of Service: Jun 03, 2024 Billing Provider: ILANA HURTADO MD Common Visit Codes: [id number] INP/OBS CARE(HIGH) Secondary Visit Codes: [id number] CARE PLAN 30 MINUTES (20 minutes) JAMIE BEDOLLA Jun 03, 2024 16:30 ILANA HURTADO MD Jun 05, 2024 09:10
[2024-06-03] MEDS: ACETAMINOPHEN/CODEINE#3 (300/30mg) TAB PO PRN (20:10)
[2024-06-04] VITALS (8 sets, daily range): BP systolic 99–190; BP diastolic 62–76; PULSE 77–89; RESP 16–19; TEMP 97–98.1; O2SAT 97–100
--- NOTE | 2024-06-04 07:02 | DVHPN2 ---
Subjective Date Seen: Jun 04, 2024 Post op day Post op day: 1 Patient reports: No new complaints Nursing reports: No new complaints General: Normal HNT: Normal Cardiovascular: Normal Respiratory: Normal Gastrointestinal: Abdominal Pain Genitourinary: Normal Musculoskeletal: Normal Neurological: Normal Objective Vitals Vital Sign Date Time Temp Pulse Resp B/P (MAP) Pulse Ox O2 Delivery O2 Flow Rate FiO2 06/04/24 05:00 97.0 77 18 190/68 (108) 100 97.0 06/03/24 20:00 Room Air* 0 21 Total Intake and Output 06/03/24 06/03/24 06/04/24 15:00 23:00 07:00 Intake Total 860 ml 1240 ml Output Total 80 ml 40 ml Balance -80 ml 820 ml 1240 ml Medications Current Medications Medications Dose Ordered Sig/Liane Route Start Time Stop Time Status Last Admin Dose Admin Acetaminophen 325 mg Q4HP PRN PO 05/30/24 21:45 06/02/24 15:55 325 MG Ciprofloxacin 200 ml @ 200 mls/hr Q12HR IV 05/31/24 09:00 06/03/24 21:16 200 MLS/HR Metronidazole 100 ml @ 100 mls/hr Q8HR IV 05/31/24 06:00 06/04/24 05:56 100 MLS/HR Atorvastatin Calcium 40 mg HS PO 05/31/24 22:00 06/03/24 21:21 40 MG Trazodone HCl 100 mg HS PO 05/30/24 22:00 06/03/24 21:21 100 MG Ketorolac Tromethamine 15 mg Q6HPRN PRN IV 05/31/24 09:00 06/05/24 08:59 06/02/24 11:57 15 MG Morphine Sulfate 1 mg Q2HP PRN IV 05/31/24 09:00 Hold 06/02/24 22:29 1 MG Potassium Chloride/Dextrose/ Sod Cl 1,000 ml @ 120 mls/hr Q8H20M IV 06/03/24 10:15 06/04/24 03:23 120 MLS/HR Ceftriaxone Sodium 50 ml @ 100 mls/hr DAILY@09 IV 06/04/24 09:00 Hydromorphone HCl 1 mg Q3HPRN PRN IV 06/03/24 10:15 06/04/24 00:14 1 MG Ondansetron HCl 4 mg Q4HPRN PRN IV 06/03/24 10:15 Pantoprazole Sodium 40 mg DAILY IV 06/04/24 10:00 Acetaminophen/ Codeine Phosphate 1 tab Q4HP PRN PO 06/03/24 20:00 06/04/24 06:01 1 TAB General: Normal, Well developed Head/Eyes: Normal ENT: Normal Neck: Normal, Supple, No JVD Abdominal: Soft, Other (right side appropaitely tender ) Abdomen quadrants: RLQ Tenderness Skin: Normal, Normal inspection, Normal color Neurological: Normal Labs and Microbiology Laboratory Tests 06/03/24 05:20 Test 06/03/24 05:20 Range/Units Serum Glucose 71 L 74-106 mg/dL Ass/Plan Labs and/or images reviewed: Labs reviewed by me Problem List Assessment Acute intractable abdominal pain due to RLQ abscess vs hematoma? Intrabdominal abcess Sepsis due to above History of diverticulosis History of cholecystectomy 2 years ago, appendectomy in November 2023 History of hysterectomy without salpingo-oophorectomy - CT chest abdomen pelvis with IV and oral contrast: Mixed density loculated masslike collection in the right lower quadrant adjacent to postsurgical changes estimated 7.9 x 4.3 cm with surrounding fat stranding. Findings may be on the basis of abscess or hematoma. Correlation with clinical history is recommended. If the patient still has ovaries, tubal ovarian abscess may be considered. - lactated Ringer at 30 cc/kg per hour - IV ciprofloxacin, IV metronidazole - IV Zofran as needed - blood culture: No growth - Surgery 06/03/2024: PROCEDURES: Exploratory laparotomy. Excision of right pelvic abscess. Obesity grade 1 --> BMI 32.9 History of asthma, currently stable - monitor History of fibroids s/p hysterectomy Insomnia ---> resumed home medication trazodone 100 mg Dyslipidemia --> resumed home medication atorvastatin 40 mg PUD prophylaxis: protonix 40mg DVT prophylaxis: SCDs Goals of care: Full code, discussed for >16 minutes Plan discussed with patient and Plan discussed + Assessment/Plan patient complaint of mid to right lower abdominal pain denies nausea, fevers or vomiting abdomen tender to mid and right lower quadrant plan: pending MRI report continue IV antibiotics will see patient tomorrow am 06/04/24 s/p Exploratory laparotomy, Excision of right pelvic abscess POD#1 no new complaints no flatus, denies nausea , vomiting abdomen soft. non distended, appropriately tender to right side of abdomen (per patient feels alot better) wound clean dry and intact Plan: clear liquids patient to ambulate every 4 hours incentive spirometer every hour while in bed Prognosis: Good Plan discussed with patient, Dr. Quezada Visit Coding Surgery Date of Service if different f: Jun 04, 2024 Billing Provider: GREGORY QUEZADA MD Surgery Visit Codes: [id number] INP/OBS CARE(HIGH) DILCIA WAGGONER NP Jun 04, 2024 07:02
[2024-06-04 07:32] LABS: Basophils # (auto) 0 10 ^3/uL (0-0.2); Basophils % (auto) 0.1 % (0.0-2.0); Eosinophils # (auto) 0 10 ^3/uL (0-0.8); Eosinophils % (auto) 0.2 % (0.0-7.0); Hematocrit 35.3 % (36.0-46.0); Hemoglobin 12.3 g/dL (12.2-16.2); Lymphocytes # (auto) 1.5 10 ^3/uL (0.4-5.4); Lymphocytes % (auto) 12.9 % (10.0-50.0); Mean Corpuscular Hemoglobin 32.2 pg (28.0-32.0); Mean Corpuscular Hgb Conc. 34.9 g/dL (32.0-36.0); Mean Corpuscular Volume 92.3 fL (80.0-100.0); Monocytes # (auto) 0.6 10 ^3/uL (0-1.3); Monocytes % (auto) 5.4 % (0.0-12.0); Neutrophils # (auto) 9.5 10 ^3/uL (1.6-8.6); Neutrophils % (auto) 81.4 % (37.0-80.0); Platelet Count (auto) 255 10^3/uL (140-450); Red Blood Cells 3.83 10^6/uL (4.0-5.20); Red Cell Distribution Width 12.4 % (11.8-14.3); White Blood Cell 11.7 10^3/uL (4.4-10.8)
[2024-06-04 07:44] LABS: Anion Gap 8 (5-15); Carbon Dioxide 27 mmol/L (20-31); Chloride 105 mmol/L (98-107); Sodium 140 mmol/L (136-145)
[2024-06-04 07:46] LABS: Calcium 9.3 mg/dL (8.7-10.4)
[2024-06-04 07:50] LABS: BUN/Creatinine Ratio 15.3 (10.0-20.0); Glucose 99 mg/dL (74-106)
[2024-06-04 07:57] LABS: Blood Urea Nitrogen 9 mg/dL (9-23)
[2024-06-04] MEDS: cefTRIAXone 1GM/50ML D5W 50 ML IV SCH (08:40)
[2024-06-04] MEDS: PANTOPRAZOLE 40 MG/10 ML VIAL INJ IV SCH (08:42)
--- NOTE | 2024-06-04 13:01 | DVHPN2 ---
Subjective Feeling better with decreasing abdominal pain but did not pass gasses/bowel movement Reviewed: Care Plan, H&P, Labs, Medications, Previous Orders, Radiology, Other (Consultation) Changes from previous H/P or p: Changes Objective Vitals Vital Signs Date Time Temp Pulse Resp B/P (MAP) Pulse Ox O2 Delivery O2 Flow Rate FiO2 06/04/24 09:30 97.7 79 19 107/76 (86) 100 97.7 06/04/24 08:00 Room Air* 0 21 Intake/Output Intake and Output 06/04/24 07:00 Intake Total 2200 ml Output Total 145 ml Balance 2055 ml Intake Oral 1100 ml IV Total 1100 ml Output Drainage Total 145 ml # Voids 4 # Bowel Movements 1 General Appearance: Alert, Oriented X3, Cooperative, No acute distress HEENT: Atraumatic Lungs: Clear to auscultation, Normal air movement Cardiovascular: Regular rate, Normal S1, Normal S2 Abdomen: Normal bowel sounds, Soft, Other (Diffuse mild tenderness with RYAN drain in place; serosanguineous fluid) Neuro: Normal speech, Cranial nerves 3-12 NL Psych/Mental Status: Mental status NL, Mood NL Medications Current Medications Medications Dose Ordered Sig/Liane Route Start Time Stop Time Status Last Admin Dose Admin Acetaminophen 325 mg Q4HP PRN PO 05/30/24 21:45 06/02/24 15:55 325 MG Ciprofloxacin 200 ml @ 200 mls/hr Q12HR IV 05/31/24 09:00 06/04/24 09:48 200 MLS/HR Metronidazole 100 ml @ 100 mls/hr Q8HR IV 05/31/24 06:00 06/04/24 05:56 100 MLS/HR Atorvastatin Calcium 40 mg HS PO 05/31/24 22:00 06/03/24 21:21 40 MG Trazodone HCl 100 mg HS PO 05/30/24 22:00 06/03/24 21:21 100 MG Ketorolac Tromethamine 15 mg Q6HPRN PRN IV 05/31/24 09:00 06/05/24 08:59 06/04/24 12:56 15 MG Morphine Sulfate 1 mg Q2HP PRN IV 05/31/24 09:00 Hold 06/02/24 22:29 1 MG Potassium Chloride/Dextrose/ Sod Cl 1,000 ml @ 120 mls/hr Q8H20M IV 06/03/24 10:15 06/04/24 11:32 120 MLS/HR Ceftriaxone Sodium 50 ml @ 100 mls/hr DAILY@09 IV 06/04/24 09:00 06/04/24 08:40 100 MLS/HR Hydromorphone HCl 1 mg Q3HPRN PRN IV 06/03/24 10:15 06/04/24 08:38 1 MG Ondansetron HCl 4 mg Q4HPRN PRN IV 06/03/24 10:15 Pantoprazole Sodium 40 mg DAILY IV 06/04/24 10:00 06/04/24 08:42 40 MG Acetaminophen/ Codeine Phosphate 1 tab Q4HP PRN PO 06/03/24 20:00 06/04/24 06:01 1 TAB Laboratory Results Laboratory Tests 06/04/24 06:54 Chemistry Test 06/04/24 06:54 Calcium Level 9.3 mg/dL (8.7-10.4) Urinalysis Test 05/30/24 18:28 Urine Color Light-yellow (Yellow) Urine Clarity Clear (Clear) Urine pH 6.0 (5.0-9.0) Urine Specific [place] 1.012 (1.001-1.035) Urine Protein Negative (Negative) Urine Ketones Trace (Negative) Urine Blood Negative /uL (Negative) Urine Nitrite Negative (Negative) Urine Bilirubin Negative (Negative) Urine Urobilinogen Normal mg/dL (Negative) Urine Leukocyte Esterase Negative /uL (Negative) Urine RBC 1 /hpf (0 - 4) Urine Microscopic WBC 1 /HPF (0-5) Urine Squamous Epithelial Cells None seen /hpf (<5) Urine Bacteria None seen /hpf (None Seen) Urine Glucose Normal mg/dL (Normal) Microbiology Microbiology Date/Time Source Procedure Growth Status 06/03/24 09:58 Other Gram Stain - Final Resulted 06/03/24 09:58 Other Anaerobic Culture - Preliminary Resulted 06/03/24 09:58 Other Aerobic Culture - Preliminary Resulted 05/30/24 21:09 Blood Blood Culture - Preliminary NO GROWTH AFTER 72 HOURS OF INCUBATION. Resulted Labs and/or images reviewed: Labs reviewed by me, Image(s) reviewed by me Assessment/Plan Assessment/Plan Covering: Acute intractable abdominal pain due to intra-abdominal abscess Intraabdominal abscess status exploratory laparotomy and excision of right pelvic abscess on June 03, 2024 Sepsis due to above Diverticulosis History of cholecystectomy 2 years ago, appendectomy in November 2023 History of fibroids status post hysterectomy Asthma; not in exacerbation Insomnia Dyslipidemia Morbid obesity Reviewed lab work, imaging studies, and cultures Continue IV antibiotics To advance diet as per surgery Continue pain medication as indicated along with antiemetics as indicated Educated the patient about the importance of ambulation to help with passing gases/bowel movements movements Continue trazodone for insomnia Continue statin for dyslipidemia Counseled the patient on the importance of adopting healthy lifestyle with diet and exercise in order to lose weight Surgery is following Continue monitoring Late Entry. This medical document was created using an electronic medical record system with computerized dictation system. Although this document has been carefully reviewed, there might still be some phonetic and typographical errors. These areas are purely typographical due to imperfections of the software programs, and do not reflect any compromise in the patient's medical care. Plan discussed with: Patient, Spouse, Other (Nurse) Date of Service: Jun 04, 2024 Billing Provider: ILANA HURTADO MD Common Visit Codes: [id number] INP/OBS CARE(HIGH) ILANA HURTADO MD Jun 04, 2024 13:01
[2024-06-05] VITALS (7 sets, daily range): BP systolic 90–111; BP diastolic 50–79; PULSE 80–90; RESP 15–18; TEMP 97.6–98.9; O2SAT 95–99
[2024-06-05 07:53] LABS: Basophils # (auto) 0 10 ^3/uL (0-0.2); Basophils % (auto) 0.4 % (0.0-2.0); Eosinophils # (auto) 0.2 10 ^3/uL (0-0.8); Eosinophils % (auto) 2.3 % (0.0-7.0); Hemoglobin 11.8 g/dL (12.2-16.2); Lymphocytes # (auto) 2.7 10 ^3/uL (0.4-5.4); Lymphocytes % (auto) 35.4 % (10.0-50.0); Mean Corpuscular Hemoglobin 32.7 pg (28.0-32.0); Mean Corpuscular Hgb Conc. 34.8 g/dL (32.0-36.0); Mean Corpuscular Volume 93.8 fL (80.0-100.0); Monocytes # (auto) 0.6 10 ^3/uL (0-1.3); Monocytes % (auto) 7.1 % (0.0-12.0); Neutrophils # (auto) 4.2 10 ^3/uL (1.6-8.6); Neutrophils % (auto) 54.8 % (37.0-80.0); Nucleated Red Blood Cells % 0.1 %; Platelet Count (auto) 210 10^3/uL (140-450); Red Blood Cells 3.62 10^6/uL (4.0-5.20); Red Cell Distribution Width 12.1 % (11.8-14.3); White Blood Cell 7.7 10^3/uL (4.4-10.8)
[2024-06-05 07:59] LABS: Anion Gap 8 (5-15); Carbon Dioxide 26 mmol/L (20-31); Potassium 3.9 mmol/L (3.5-5.1); Sodium 142 mmol/L (136-145)
[2024-06-05 08:00] LABS: Calcium 8.6 mg/dL (8.7-10.4); Chloride 108 mmol/L (98-107)
[2024-06-05 08:05] LABS: BUN/Creatinine Ratio 10.7 (10.0-20.0); Glucose 87 mg/dL (74-106)
[2024-06-05 08:14] LABS: Blood Urea Nitrogen 6 mg/dL (9-23)
[2024-06-05] MEDS ORDERED: ACETAMINOPHEN/CODEINE#3 (300/30mg) TAB PO PRN (09:00)
--- NOTE | 2024-06-05 10:17 | DVHPN2 ---
Subjective Date Seen: Jun 05, 2024 Post op day Post op day: 2 Patient reports: No new complaints Nursing reports: No new complaints General: Normal HNT: Normal Cardiovascular: Normal Respiratory: Normal Gastrointestinal: Abdominal Pain Genitourinary: Normal Musculoskeletal: Normal Neurological: Normal Objective Vitals Vital Sign Date Time Temp Pulse Resp B/P (MAP) Pulse Ox O2 Delivery O2 Flow Rate FiO2 06/05/24 09:00 97.9 86 15 97/63 (74) 95 97.9 06/05/24 08:00 Room Air* 0 21 Total Intake and Output 06/04/24 06/04/24 06/05/24 15:00 23:00 07:00 Intake Total 1250 ml 940 ml 1400 ml Output Total 10 ml Balance 1240 ml 940 ml 1400 ml Medications Current Medications Medications Dose Ordered Sig/Liane Route Start Time Stop Time Status Last Admin Dose Admin Acetaminophen 325 mg Q4HP PRN PO 05/30/24 21:45 06/02/24 15:55 325 MG Ciprofloxacin 200 ml @ 200 mls/hr Q12HR IV 05/31/24 09:00 06/05/24 08:33 200 MLS/HR Metronidazole 100 ml @ 100 mls/hr Q8HR IV 05/31/24 06:00 06/05/24 05:37 100 MLS/HR Atorvastatin Calcium 40 mg HS PO 05/31/24 22:00 06/04/24 21:12 40 MG Trazodone HCl 100 mg HS PO 05/30/24 22:00 06/04/24 21:13 100 MG Morphine Sulfate 1 mg Q2HP PRN IV 05/31/24 09:00 Hold 06/02/24 22:29 1 MG Potassium Chloride/Dextrose/ Sod Cl 1,000 ml @ 120 mls/hr Q8H20M IV 06/03/24 10:15 06/05/24 04:27 120 MLS/HR Ceftriaxone Sodium 50 ml @ 100 mls/hr DAILY@09 IV 06/04/24 09:00 06/05/24 08:33 100 MLS/HR Hydromorphone HCl 1 mg Q3HPRN PRN IV 06/03/24 10:15 06/04/24 21:58 1 MG Ondansetron HCl 4 mg Q4HPRN PRN IV 06/03/24 10:15 Pantoprazole Sodium 40 mg DAILY IV 06/04/24 10:00 06/05/24 08:33 40 MG Acetaminophen/ Codeine Phosphate 1 tab Q4HP PRN PO 06/03/24 20:00 06/05/24 08:33 1 TAB General: Normal, Well developed Head/Eyes: Normal ENT: Normal Neck: Normal, Supple, No JVD Abdominal: Soft, Other (right side appropaitely tender ) Abdomen quadrants: RLQ Tenderness Skin: Normal, Normal inspection, Normal color Neurological: Normal Labs and Microbiology Laboratory Tests 06/05/24 07:14 Test 06/05/24 07:14 Range/Units Serum Glucose 87 74-106 mg/dL Ass/Plan Labs and/or images reviewed: Labs reviewed by me, Image(s) reviewed by me Problem List Assessment Acute intractable abdominal pain due to intra-abdominal abscess Intraabdominal abscess status exploratory laparotomy and excision of right pelvic abscess on June 03, 2024 Sepsis due to above History of diverticulosis History of cholecystectomy 2 years ago, appendectomy in November 2023 History of hysterectomy without salpingo-oophorectomy - CT chest abdomen pelvis with IV and oral contrast: Mixed density loculated masslike collection in the right lower quadrant adjacent to postsurgical changes estimated 7.9 x 4.3 cm with surrounding fat stranding. Findings may be on the basis of abscess or hematoma. Correlation with clinical history is recommended. If the patient still has ovaries, tubal ovarian abscess may be considered. - lactated Ringer at 30 cc/kg per hour - IV ciprofloxacin, IV metronidazole - IV Zofran as needed - blood culture: No growth - Surgery 06/03/2024: PROCEDURES: Exploratory laparotomy. Excision of right pelvic abscess. Obesity grade 1 --> BMI 32.9 History of asthma, currently stable - monitor History of fibroids s/p hysterectomy Insomnia ---> resumed home medication trazodone 100 mg Dyslipidemia --> resumed home medication atorvastatin 40 mg PUD prophylaxis: Protonix 40mg DVT prophylaxis: [facility] Goals of care: Full code, discussed for 20 minutes Plan discussed with patient and Plan discussed with Dr. Madrigal Assessment/Plan patient complaint of mid to right lower abdominal pain denies nausea, fevers or vomiting abdomen tender to mid and right lower quadrant plan: pending MRI report continue IV antibiotics will see patient tomorrow am 06/04/24 s/p Exploratory laparotomy, Excision of right pelvic abscess POD#1 no new complaints no flatus, denies nausea , vomiting abdomen soft. non distended, appropriately tender to right side of abdomen (per patient feels alot better) wound clean dry and intact Plan: clear liquids patient to ambulate every 4 hours incentive spirometer every hour while in bed 06/05/24 s/p Exploratory laparotomy, Excision of right pelvic abscess POD#2 no new complaints flatus, denies nausea , vomiting abdomen soft. non distended, appropriately tender to right side of abdomen (per patient feels better) RYAN drain minimal serous sanguinous fluid wound clean dry and intact Plan: full liquids, advance diet as tolerated patient to ambulate every 4 hours Prognosis: Good Plan discussed with patient, Dr. Quezada Visit Coding Surgery Date of Service if different f: Jun 05, 2024 Billing Provider: GREGORY QUEZADA MD Surgery Visit Codes: [id number] INP/OBS CARE(HIGH) DILCIA WAGGONER NP Jun 05, 2024 10:17
--- NOTE | 2024-06-05 10:44 | ECG ---
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
--- NOTE | 2024-06-05 23:52 | DVHPNRES ---
Progress Note Date Seen: Jun 05, 2024 Resident Creating Document: JAMIE BEDOLLA RESIDENT Has the PT tested + for MRSA If YES, has PT been informed?: No Medical Necessity Reason Pt with a Central, PICC or Fol: No Medical Necessity Reason Medical Necessity Reason A 48-year-old female with past medical history of asthma, fibroids, diverticulosis who comes in due to abdominal pain. Patient was discharged from the [facility] on 05/25/2024, per patient she has been experiencing abdominal pain since her discharge which is constant and progressively worsening, she describes it as burning in nature and 10/10 in intensity without any relieving factors and worsened with walking. Patient went to appendectomy on nov 2023, no diarrhea no constipation. Associated symptoms include nausea, fatigue, fever, chills, palpitations and urinary frequency. Patient was noted to have tachycardia of 129 and a white cell count of 11.3 at admission . Patient was started on LR at 30 cc/kg per hour along with IV metronidazole and IV ciprofloxacin. Past Medical History: Asthma, fibroids, diverticulosis Past Surgical History: Appendectomy, cholecystectomy, hysterectomy, abdominal plasty Family History: Diabetes, hyperlipidemia, hypertension Social History : Smoke: No, ALCOHOL: none, Drugs: None and lives with Family 05/31/24: CT scan IV and oral contrast: Mixed density loculated masslike collection in the right lower quadrant adjacent to postsurgical changes estimated 7.9 x 4.3 cm with surrounding fat stranding. Findings may be on the basis of abscess or hematoma. Surgery was consulted and they advised percutaneous drainage, IR is consulted 06/01/2024: Patient and examined today. she continues to complained of upper abdominal pain. Image was reviewed by the IR, Dr. Grayson;who told the nurse that ABSCESS/HEMATOMA IN QUESTION CAN NOT BE ACCESSED BECAUSE OF BOWEL." NO PROCEDURE INDICATED AT THIS TIME". General surgery was consulted and they also did not recommend surgery but recommended antibiotics. 06/03/2024 This morning patient was taken into the OR. she is currently status post E xploratory laparotomy and Excision of right pelvic abscess. Surgery went well. No complication reported. Fluid running at 120 mL/hour. We will repeat lab in the morning and follow up appropriately. pn 06/05/2024 patient seen and examined. lying in bed and eating some jello. She mentioned pain is tolerable but if she needed more pain medication she would like us know. The is s/p surgery POD2. Wound dress is clean and in tact. WBC good and nor fever chills or vomiting noted Subjective Review of Systems Constitutional: Denies fever no chills no feeling of malaise HEENT: Denies headache, ear pain, ear discharges, conjunctivitis, nasal discharge throat pain Cardiovascular: Denies chest pain, palpitation, orthopnea, PND, or pedal edema Respiratory: Denies shortness of breath, cough cough, sputum production, hemoptysis, GI: abdominal incision site pain, no nausea, vomiting, diarrhea, hematemesis, hematochezia, : Denies frequency, urgency, hematuria, Endocrine: Denies unintentional weight gain or weight loss, feeling of hot flashes, Aris: Denies easy bruising, bleeding disorders, epistaxis Musculoskeletal: Denies joint pains, muscle aches Psych: No evidence of depression, jessica, suicidal ideation Objective vital signs Vital Sign Date Time Temp Pulse Resp B/P (MAP) Pulse Ox O2 Delivery O2 Flow Rate FiO2 06/05/24 21:00 98.9 90 17 111/74 (86) 95 98.9 06/05/24 20:00 Room Air* 0 21 Total Intake and Output 06/04/24 06/04/24 06/05/24 15:00 23:00 07:00 Intake Total 1250 ml 940 ml 1400 ml Output Total 10 ml Balance 1240 ml 940 ml 1400 ml medications Current Medications Medications Dose Ordered Sig/Liane Route Start Time Stop Time Status Last Admin Dose Admin Acetaminophen 325 mg Q4HP PRN PO 05/30/24 21:45 06/02/24 15:55 325 MG Ciprofloxacin 200 ml @ 200 mls/hr Q12HR IV 05/31/24 09:00 06/05/24 21:14 200 MLS/HR Metronidazole 100 ml @ 100 mls/hr Q8HR IV 05/31/24 06:00 06/05/24 22:22 100 MLS/HR Atorvastatin Calcium 40 mg HS PO 05/31/24 22:00 06/05/24 21:14 40 MG Trazodone HCl 100 mg HS PO 05/30/24 22:00 06/05/24 21:14 100 MG Morphine Sulfate 1 mg Q2HP PRN IV 05/31/24 09:00 Hold 06/02/24 22:29 1 MG Potassium Chloride/Dextrose/ Sod Cl 1,000 ml @ 120 mls/hr Q8H20M IV 06/03/24 10:15 06/05/24 20:22 120 MLS/HR Ceftriaxone Sodium 50 ml @ 100 mls/hr DAILY@09 IV 06/04/24 09:00 06/05/24 08:33 100 MLS/HR Hydromorphone HCl 1 mg Q3HPRN PRN IV 06/03/24 10:15 06/05/24 20:06 1 MG Ondansetron HCl 4 mg Q4HPRN PRN IV 06/03/24 10:15 Pantoprazole Sodium 40 mg DAILY IV 06/04/24 10:00 06/05/24 08:33 40 MG Acetaminophen/ Codeine Phosphate 1 tab Q4HP PRN PO 06/03/24 20:00 06/05/24 22:00 1 TAB Examination General Appearance: Alert, Oriented X3, Cooperative, No acute distress HEENT: Atraumatic, PERRLA, EOMI, Mucous membrane moist/pink Respiratory: Clear to auscultation, Normal air movement Cardiovascular: Regular rate, Normal S1, Normal S2, No murmurs, no chest wall tenderness Abdominal: NO distention, tenderness, bowel sounds present, wound incision site seen. no discharges seen. wound dressing in place; RYAN drain in place Extremities: No clubbing, No cyanosis, No edema, Normal pulses, No tenderness/swelling Skin: No rashes, No breakdown, No significant lesion Neuro: Normal gait, Normal speech, Strength at 5/5 X4 ext, Normal tone, Sensation intact, Cranial nerves 3-12 NL, Reflexes 2+ Psych/Mental Status: Mental status NL, Mood NL laboratory and microbiology Laboratory Tests 06/05/24 07:14 Test 06/05/24 07:14 Range/Units Serum Glucose 87 74-106 mg/dL Microbiology Date/Time Source Procedure Growth Status 06/03/24 09:58 Other Gram Stain - Final Resulted 06/03/24 09:58 Other Anaerobic Culture - Preliminary Resulted 06/03/24 09:58 Other Aerobic Culture - Preliminary Resulted 05/30/24 21:09 Blood Blood Culture - Final NO GROWTH AFTER 5 DAYS OF INCUBATION. Complete Problem List/Assessment/Plan Problem List/Assessment/Plan Assessment Acute intractable abdominal pain due to RLQ abscess vs hematoma? Intrabdominal abcess Sepsis due to above History of diverticulosis History of cholecystectomy 2 years ago, appendectomy in November 2023 History of hysterectomy without salpingo-oophorectomy - CT chest abdomen pelvis with IV and oral contrast: Mixed density loculated masslike collection in the right lower quadrant adjacent to postsurgical changes estimated 7.9 x 4.3 cm with surrounding fat stranding. Findings may be on the basis of abscess or hematoma. Correlation with clinical history is recommended. If the patient still has ovaries, tubal ovarian abscess may be considered. - lactated Ringer at 30 cc/kg per hour - IV ciprofloxacin, IV metronidazole - IV Zofran as needed - blood culture: No growth - Surgery 06/03/2024: PROCEDURES: Exploratory laparotomy. Excision of right pelvic abscess. Obesity grade 1 --> BMI 32.9 History of asthma, currently stable - monitor History of fibroids s/p hysterectomy Insomnia ---> resumed home medication trazodone 100 mg Dyslipidemia --> resumed home medication atorvastatin 40 mg PUD prophylaxis: protonix 40mg DVT prophylaxis: SCDs Goals of care: Full code, discussed for >16 minutes Plan discussed with patient and Plan discussed + Dr. Carrion Plan discussed with: Patient Dietary Evaluation Review Comments: 1) Advance diet as medically feasible 2) Continue current plan of care Expected Outcomes/Goals: To meet >75% estimated needs Fu 2-3 days Date of Service: Jun 05, 2024 Billing Provider: RHODA CARRION MD Common Visit Codes: [id number] INP/OBS CARE(HIGH) JAMIE BEDOLLA RESIDENT Jun 05, 2024 23:52 RHODA CARRION MD June 09, 2024 19:11
[2024-06-06] VITALS (8 sets, daily range): BP systolic 98–114; BP diastolic 65–78; PULSE 72–89; RESP 15–18; TEMP 97.8–98.4; O2SAT 93–97
[2024-06-06 08:50] LABS: Basophils # (auto) 0 10 ^3/uL (0-0.2); Basophils % (auto) 0.5 % (0.0-2.0); Eosinophils # (auto) 0.2 10 ^3/uL (0-0.8); Eosinophils % (auto) 2.5 % (0.0-7.0); Hematocrit 35.1 % (36.0-46.0); Hemoglobin 12.4 g/dL (12.2-16.2); Lymphocytes # (auto) 1.9 10 ^3/uL (0.4-5.4); Mean Corpuscular Hemoglobin 32.8 pg (28.0-32.0); Mean Corpuscular Hgb Conc. 35.2 g/dL (32.0-36.0); Mean Corpuscular Volume 93.2 fL (80.0-100.0); Monocytes # (auto) 0.4 10 ^3/uL (0-1.3); Monocytes % (auto) 5.8 % (0.0-12.0); Neutrophils % (auto) 62.2 % (37.0-80.0); Platelet Count (auto) 231 10^3/uL (140-450); Red Blood Cells 3.77 10^6/uL (4.0-5.20); Red Cell Distribution Width 12.8 % (11.8-14.3); White Blood Cell 6.5 10^3/uL (4.4-10.8)
[2024-06-06 08:59] LABS: Anion Gap 8 (5-15); Carbon Dioxide 29 mmol/L (20-31); Chloride 105 mmol/L (98-107); Potassium 3.8 mmol/L (3.5-5.1); Sodium 142 mmol/L (136-145)
[2024-06-06 09:00] LABS: Calcium 8.9 mg/dL (8.7-10.4)
[2024-06-06 09:04] LABS: Glucose 94 mg/dL (74-106)
[2024-06-06 09:05] LABS: BUN/Creatinine Ratio 8.6 (10.0-20.0); Blood Urea Nitrogen < 5 mg/dL (9-23)
[2024-06-06] MEDS: ONDANSETRON HCL 4 MG/2 ML VIAL IV PRN (10:06)
--- NOTE | 2024-06-06 11:38 | DVHPN2 ---
Progress Note Date Seen: Jun 06, 2024 Has the PT tested + for MRSA If YES, has PT been informed?: No Medical Necessity Reason Pt with a Central, PICC or Fol: No Objective vital signs Vital Sign Date Time Temp Pulse Resp B/P (MAP) Pulse Ox O2 Delivery O2 Flow Rate FiO2 06/06/24 10:06 92 19 117/81 06/06/24 09:00 98.3 93 98.3 06/05/24 20:00 Room Air* 0 21 Total Intake and Output 06/05/24 06/05/24 06/06/24 15:00 23:00 07:00 Intake Total 350 ml 2200 ml 300 ml Output Total 0 ml Balance 350 ml 2200 ml 300 ml medications Current Medications Medications Dose Ordered Sig/Liane Route Start Time Stop Time Status Last Admin Dose Admin Acetaminophen 325 mg Q4HP PRN PO 05/30/24 21:45 06/02/24 15:55 325 MG Ciprofloxacin 200 ml @ 200 mls/hr Q12HR IV 05/31/24 09:00 06/06/24 10:36 200 MLS/HR Metronidazole 100 ml @ 100 mls/hr Q8HR IV 05/31/24 06:00 06/06/24 05:21 100 MLS/HR Atorvastatin Calcium 40 mg HS PO 05/31/24 22:00 06/05/24 21:14 40 MG Trazodone HCl 100 mg HS PO 05/30/24 22:00 06/05/24 21:14 100 MG Morphine Sulfate 1 mg Q2HP PRN IV 05/31/24 09:00 Hold 06/02/24 22:29 1 MG Potassium Chloride/Dextrose/ Sod Cl 1,000 ml @ 120 mls/hr Q8H20M IV 06/03/24 10:15 06/06/24 04:56 120 MLS/HR Ceftriaxone Sodium 50 ml @ 100 mls/hr DAILY@09 IV 06/04/24 09:00 06/06/24 09:00 100 MLS/HR Hydromorphone HCl 1 mg Q3HPRN PRN IV 06/03/24 10:15 06/06/24 10:06 1 MG Ondansetron HCl 4 mg Q4HPRN PRN IV 06/03/24 10:15 06/06/24 10:06 4 MG Pantoprazole Sodium 40 mg DAILY IV 06/04/24 10:00 06/06/24 10:36 40 MG Acetaminophen/ Codeine Phosphate 1 tab Q4HP PRN PO 06/03/24 20:00 06/06/24 05:10 1 TAB laboratory and microbiology Laboratory Tests 06/06/24 08:40 Test 06/06/24 08:40 Range/Units Serum Glucose 94 74-106 mg/dL Problem List/Assessment/Plan Problem List/Assessment/Plan 06/06/24 passing flatus, no BM, no nausea or vomiting, abdomen non distended, appropriately tender, wound clean and well approximated, needs to increase ambulation. Plan discussed with: Patient Dietary Evaluation Review Comments: 1) Advance diet as medically feasible 2) Continue current plan of care Expected Outcomes/Goals: To meet >75% estimated needs Fu 2-3 days GREGORY LEIVA MD Jun 06, 2024 11:38
--- NOTE | 2024-06-06 19:49 | DVHPNRES ---
Progress Note Date Seen: Jun 06, 2024 Resident Creating Document: JAMIE BEDOLLA RESIDENT Has the PT tested + for MRSA If YES, has PT been informed?: No Medical Necessity Reason Pt with a Central, PICC or Fol: No Medical Necessity Reason History of presenting ILLNESS A 48-year-old female with past medical history of asthma, fibroids, diverticulosis who comes in due to abdominal pain. Patient was discharged from the [facility] on 05/25/2024, per patient she has been experiencing abdominal pain since her discharge which is constant and progressively worsening, she describes it as burning in nature and 10/10 in intensity without any relieving factors and worsened with walking. Patient went to appendectomy on nov 2023, no diarrhea no constipation. Associated symptoms include nausea, fatigue, fever, chills, palpitations and urinary frequency. Patient was noted to have tachycardia of 129 and a white cell count of 11.3 at admission . Patient was started on LR at 30 cc/kg per hour along with IV metronidazole and IV ciprofloxacin. Past Medical History: Asthma, fibroids, diverticulosis Past Surgical History: Appendectomy, cholecystectomy, hysterectomy, abdominal plasty Family History: Diabetes, hyperlipidemia, hypertension Social History : Smoke: No, ALCOHOL: none, Drugs: None and lives with Family 05/31/24: CT scan IV and oral contrast: Mixed density loculated masslike collection in the right lower quadrant adjacent to postsurgical changes estimated 7.9 x 4.3 cm with surrounding fat stranding. Findings may be on the basis of abscess or hematoma. Surgery was consulted and they advised percutaneous drainage, IR is consulted 06/01/2024: Patient and examined today. she continues to complained of upper abdominal pain. Image was reviewed by the IR, Dr. Grayson;who told the nurse that ABSCESS/HEMATOMA IN QUESTION CAN NOT BE ACCESSED BECAUSE OF BOWEL." NO PROCEDURE INDICATED AT THIS TIME". General surgery was consulted and they also did not recommend surgery but recommended antibiotics. 06/03/2024 This morning patient was taken into the OR. she is currently status post E xploratory laparotomy and Excision of right pelvic abscess. Surgery went well. No complication reported. Fluid running at 120 mL/hour. We will repeat lab in the morning and follow up appropriately. pn 06/05/2024 patient seen and examined. lying in bed and eating some jello. She mentioned pain is tolerable but if she needed more pain medication she would like us know. The is s/p surgery POD2. Wound dress is clean and in tact. WBC good and nor fever chills or vomiting noted PN: 06/06/24 Patient seen and examine. She is currently passing passing flatus, but no ginny movment yet. She denies nausea or vomiting. Woung is clean and no infections noted. Patient needs to ambulate more to increase bowel movement. Surgery also following. do not recommend discharge yet. Subjective Review of Systems Constitutional: Denies fever no chills no feeling of malaise HEENT: Denies headache, ear pain, ear discharges, conjunctivitis, nasal discharge throat pain Cardiovascular: Denies chest pain, palpitation, orthopnea, PND, or pedal edema Respiratory: Denies shortness of breath, cough cough, sputum production, hemoptysis, GI: Mild-moderate abdominal pain, nausea, vomiting, diarrhea, hematemesis, hematochezia; passing gas : Denies frequency, urgency, hematuria, Endocrine: Denies unintentional weight gain or weight loss, feeling of hot flashes, Aris: Denies easy bruising, bleeding disorders, epistaxis Musculoskeletal: Denies joint pains, muscle aches Psych: No evidence of depression, jessica, suicidal ideation Objective vital signs Vital Sign Date Time Temp Pulse Resp B/P (MAP) Pulse Ox O2 Delivery O2 Flow Rate FiO2 06/06/24 16:40 97.8 82 16 114/78 (90) 94 97.8 06/06/24 08:00 Room Air* 0 21 Total Intake and Output 06/05/24 06/05/24 06/06/24 15:00 23:00 07:00 Intake Total 350 ml 2200 ml 300 ml Output Total 0 ml Balance 350 ml 2200 ml 300 ml medications Current Medications Medications Dose Ordered Sig/Liane Route Start Time Stop Time Status Last Admin Dose Admin Acetaminophen 325 mg Q4HP PRN PO 05/30/24 21:45 06/02/24 15:55 325 MG Ciprofloxacin 200 ml @ 200 mls/hr Q12HR IV 05/31/24 09:00 06/06/24 10:36 200 MLS/HR Metronidazole 100 ml @ 100 mls/hr Q8HR IV 05/31/24 06:00 06/06/24 14:07 100 MLS/HR Atorvastatin Calcium 40 mg HS PO 05/31/24 22:00 06/05/24 21:14 40 MG Trazodone HCl 100 mg HS PO 05/30/24 22:00 06/05/24 21:14 100 MG Morphine Sulfate 1 mg Q2HP PRN IV 05/31/24 09:00 Hold 06/02/24 22:29 1 MG Potassium Chloride/Dextrose/ Sod Cl 1,000 ml @ 120 mls/hr Q8H20M IV 06/03/24 10:15 06/06/24 13:15 120 MLS/HR Ceftriaxone Sodium 50 ml @ 100 mls/hr DAILY@09 IV 06/04/24 09:00 06/06/24 09:00 100 MLS/HR Hydromorphone HCl 1 mg Q3HPRN PRN IV 06/03/24 10:15 06/06/24 14:56 1 MG Ondansetron HCl 4 mg Q4HPRN PRN IV 06/03/24 10:15 06/06/24 10:06 4 MG Pantoprazole Sodium 40 mg DAILY IV 06/04/24 10:00 06/06/24 10:36 40 MG Acetaminophen/ Codeine Phosphate 1 tab Q4HP PRN PO 06/03/24 20:00 06/06/24 18:48 1 TAB Examination General Appearance: Alert, Oriented X3, Cooperative, No acute distress HEENT: Atraumatic, PERRLA, EOMI, Mucous membrane moist/pink Respiratory: Clear to auscultation, Normal air movement Cardiovascular: Regular rate, Normal S1, Normal S2, No murmurs, no chest wall tenderness Abdominal: NO distention, tenderness, bowel sounds present, wound incision site seen. no discharges seen. wound dressing in place; RYAN drain in place Extremities: No clubbing, No cyanosis, No edema, Normal pulses, No tenderness/swelling Skin: No rashes, No breakdown, No significant lesion Neuro: Normal gait, Normal speech, Strength at 5/5 X4 ext, Normal tone, Sensation intact, Cranial nerves 3-12 NL, Reflexes 2+ Psych/Mental Status: Mental status NL, Mood NL laboratory and microbiology Laboratory Tests 06/06/24 08:40 Test 06/06/24 08:40 Range/Units Serum Glucose 94 74-106 mg/dL Microbiology Date/Time Source Procedure Growth Status 06/03/24 09:58 Other Gram Stain - Final Resulted 06/03/24 09:58 Other Anaerobic Culture - Preliminary Resulted 06/03/24 09:58 Other Aerobic Culture - Preliminary Resulted 05/30/24 21:09 Blood Blood Culture - Final NO GROWTH AFTER 5 DAYS OF INCUBATION. Complete Problem List/Assessment/Plan Problem List/Assessment/Plan Assessment Acute intractable abdominal pain due to RLQ abscess vs hematoma? Intraabdominal abscess Sepsis due to above History of diverticulosis History of cholecystectomy 2 years ago, appendectomy in November 2023 History of hysterectomy without salpingo-oophorectomy - CT chest abdomen pelvis with IV and oral contrast: Mixed density loculated masslike collection in the right lower quadrant adjacent to postsurgical changes estimated 7.9 x 4.3 cm with surrounding fat stranding. Findings may be on the basis of abscess or hematoma. Correlation with clinical history is recommended. If the patient still has ovaries, tubal ovarian abscess may be considered. - lactated Ringer at 30 cc/kg per hour - IV ciprofloxacin, IV metronidazole - IV Zofran as needed - blood culture: No growth - Surgery 06/03/2024: PROCEDURES: Exploratory laparotomy. Excision of right pelvic abscess. --> Passing flatulence, encouraged ambulation Obesity grade 1 --> BMI 33.4 History of asthma, currently stable - monitor History of fibroids s/p hysterectomy Insomnia ---> resumed home medication trazodone 100 mg Dyslipidemia --> resumed home medication atorvastatin 40 mg PUD prophylaxis: protonix 40mg DVT prophylaxis: SCDs Goal of care discussed for 15 minutes: full code Plan discussed + Dr. Carrion Plan discussed with: Patient Dietary Evaluation Review Comments: 1) Advance diet as medically feasible 2) Continue current plan of care Expected Outcomes/Goals: To meet >75% estimated needs Fu 2-3 days Date of Service: Jun 06, 2024 Billing Provider: RHODA CARRION MD Common Visit Codes: [id number] INP/OBS CARE(HIGH) JAMIE BEDOLLA RESIDENT Jun 06, 2024 19:49 RHODA CARRION MD June 09, 2024 19:15
[2024-06-07] VITALS (7 sets, daily range): BP systolic 99–153; BP diastolic 57–60; PULSE 80–89; RESP 16–18; TEMP 97.9–98.6; O2SAT 95–98
[2024-06-07] MEDS: HYDROmorphone HCL 2 MG/ML VL/or syr IV PRN ×2 (15:42→21:13)
--- NOTE | 2024-06-07 17:54 | DVHPNRES ---
Progress Note Date Seen: Jun 07, 2024 Resident Creating Document: JAMIE BEDOLLA RESIDENT Has the PT tested + for MRSA If YES, has PT been informed?: No Medical Necessity Reason Pt with a Central, PICC or Fol: No Medical Necessity Reason History of presenting ILLNESS A 48-year-old female with past medical history of asthma, fibroids, diverticulosis who comes in due to abdominal pain. Patient was discharged from the [facility] on 05/25/2024, per patient she has been experiencing abdominal pain since her discharge which is constant and progressively worsening, she describes it as burning in nature and 10/10 in intensity without any relieving factors and worsened with walking. Patient went to appendectomy on nov 2023, no diarrhea no constipation. Associated symptoms include nausea, fatigue, fever, chills, palpitations and urinary frequency. Patient was noted to have tachycardia of 129 and a white cell count of 11.3 at admission . Patient was started on LR at 30 cc/kg per hour along with IV metronidazole and IV ciprofloxacin. Past Medical History: Asthma, fibroids, diverticulosis Past Surgical History: Appendectomy, cholecystectomy, hysterectomy, abdominal plasty Family History: Diabetes, hyperlipidemia, hypertension Social History : Smoke: No, ALCOHOL: none, Drugs: None and lives with Family 05/31/24: CT scan IV and oral contrast: Mixed density loculated masslike collection in the right lower quadrant adjacent to postsurgical changes estimated 7.9 x 4.3 cm with surrounding fat stranding. Findings may be on the basis of abscess or hematoma. Surgery was consulted and they advised percutaneous drainage, IR is consulted 06/01/2024: Patient and examined today. she continues to complained of upper abdominal pain. Image was reviewed by the IR, Dr. Grayson;who told the nurse that ABSCESS/HEMATOMA IN QUESTION CAN NOT BE ACCESSED BECAUSE OF BOWEL." NO PROCEDURE INDICATED AT THIS TIME". General surgery was consulted and they also did not recommend surgery but recommended antibiotics. 06/03/2024 This morning patient was taken into the OR. she is currently status post E xploratory laparotomy and Excision of right pelvic abscess. Surgery went well. No complication reported. Fluid running at 120 mL/hour. We will repeat lab in the morning and follow up appropriately. pn 06/05/2024 patient seen and examined. lying in bed and eating some jello. She mentioned pain is tolerable but if she needed more pain medication she would like us know. The is s/p surgery POD2. Wound dress is clean and in tact. WBC good and nor fever chills or vomiting noted PN: 06/06/24 Patient seen and examine. She is currently passing passing flatus, but no bowel movment yet. She denies nausea or vomiting. Woung is clean and no infections noted. Patient needs to ambulate more to increase bowel movement. Surgery also following. do not recommend discharge yet. PN: 06/07/2024: Patient is seen and examined today at the bedside. She has no other complaint rather abdominal pain drain is intact. She patient had a bowel movement this morning and ambulates without any problems. I communicated with the so with team and the so patient is to go home tomorrow. Subjective Review of Systems Constitutional: Denies fever no chills no feeling of malaise HEENT: Denies headache, ear pain, ear discharges, conjunctivitis, nasal discharge throat pain Cardiovascular: Denies chest pain, palpitation, orthopnea, PND, or pedal edema Respiratory: Denies shortness of breath, cough cough, sputum production, hemoptysis, GI: Mild-moderate abdominal pain; passing gas, bowel movement today; Denies n ausea, vomiting, diarrhea, hematemesis, hematochezia : Denies frequency, urgency, hematuria, Endocrine: Denies unintentional weight gain or weight loss, feeling of hot flashes, Aris: Denies easy bruising, bleeding disorders, epistaxis Musculoskeletal: Denies joint pains, muscle aches Psych: No evidence of depression, jessica, suicidal ideation Objective vital signs Vital Sign Date Time Temp Pulse Resp B/P (MAP) Pulse Ox O2 Delivery O2 Flow Rate FiO2 06/07/24 16:12 78 17 92/59 06/07/24 09:00 97.9 95 97.9 06/07/24 08:00 Room Air* 0 21 Total Intake and Output 06/06/24 06/06/24 06/07/24 15:00 23:00 07:00 Intake Total 930 ml 1200 ml 800 ml Output Total 100 ml Balance 930 ml 1100 ml 800 ml medications Current Medications Medications Dose Ordered Sig/Liane Route Start Time Stop Time Status Last Admin Dose Admin Acetaminophen 325 mg Q4HP PRN PO 05/30/24 21:45 06/02/24 15:55 325 MG Ciprofloxacin 200 ml @ 200 mls/hr Q12HR IV 05/31/24 09:00 06/07/24 09:47 200 MLS/HR Metronidazole 100 ml @ 100 mls/hr Q8HR IV 05/31/24 06:00 06/07/24 13:48 100 MLS/HR Atorvastatin Calcium 40 mg HS PO 05/31/24 22:00 06/06/24 21:09 40 MG Trazodone HCl 100 mg HS PO 05/30/24 22:00 06/06/24 21:09 100 MG Morphine Sulfate 1 mg Q2HP PRN IV 05/31/24 09:00 Hold 06/02/24 22:29 1 MG Potassium Chloride/Dextrose/ Sod Cl 1,000 ml @ 120 mls/hr Q8H20M IV 06/03/24 10:15 06/07/24 13:48 120 MLS/HR Ceftriaxone Sodium 50 ml @ 100 mls/hr DAILY@09 IV 06/04/24 09:00 06/07/24 08:55 100 MLS/HR Ondansetron HCl 4 mg Q4HPRN PRN IV 06/03/24 10:15 06/07/24 09:17 4 MG Pantoprazole Sodium 40 mg DAILY IV 06/04/24 10:00 06/07/24 09:17 40 MG Acetaminophen/ Codeine Phosphate 1 tab Q4HP PRN PO 06/03/24 20:00 06/07/24 13:09 1 TAB Hydromorphone HCl 1 mg Q2HP PRN IV 06/07/24 09:45 06/07/24 15:42 1 MG Examination General Appearance: Alert, Oriented X3, Cooperative, No acute distress HEENT: Atraumatic, PERRLA, EOMI, Mucous membrane moist/pink Respiratory: Clear to auscultation, Normal air movement Cardiovascular: Regular rate, Normal S1, Normal S2, No murmurs, no chest wall tenderness Abdominal: NO distention, tenderness, bowel sounds present, wound incision site seen. no discharges seen. wound dressing in place; RYAN drain in place Extremities: No clubbing, No cyanosis, No edema, Normal pulses, No tenderness/swelling Skin: No rashes, No breakdown, No significant lesion Neuro: Normal gait, Normal speech, Strength at 5/5 X4 ext, Normal tone, Sensation intact, Cranial nerves 3-12 NL, Reflexes 2+ Psych/Mental Status: Mental status NL, Mood NL laboratory and microbiology Laboratory Tests 06/06/24 08:40 Test 06/06/24 08:40 Range/Units Serum Glucose 94 74-106 mg/dL Microbiology Date/Time Source Procedure Growth Status 06/03/24 09:58 Other Gram Stain - Final Resulted 06/03/24 09:58 Other Anaerobic Culture - Preliminary Resulted 06/03/24 09:58 Other Aerobic Culture - Preliminary Resulted 05/30/24 21:09 Blood Blood Culture - Final NO GROWTH AFTER 5 DAYS OF INCUBATION. Complete Problem List/Assessment/Plan Problem List/Assessment/Plan Assessment Acute intractable abdominal pain due to RLQ abscess vs hematoma? Intraabdominal abscess Sepsis due to above History of diverticulosis History of cholecystectomy 2 years ago, appendectomy in November 2023 History of hysterectomy without salpingo-oophorectomy - CT chest abdomen pelvis with IV and oral contrast: Mixed density loculated masslike collection in the right lower quadrant adjacent to postsurgical changes estimated 7.9 x 4.3 cm with surrounding fat stranding. Findings may be on the basis of abscess or hematoma. Correlation with clinical history is recommended. If the patient still has ovaries, tubal ovarian abscess may be considered. - lactated Ringer at 30 cc/kg per hour - IV ciprofloxacin, IV metronidazole - IV Zofran as needed - blood culture: No growth - Surgery 06/03/2024: PROCEDURES: Exploratory laparotomy. Excision of right pelvic abscess. --> Passing flatulence, had a bowel movement today. --> Diet advance to soft medical Obesity grade 1 --> BMI 33.4 History of asthma, currently stable - monitor History of fibroids s/p hysterectomy Insomnia ---> resumed home medication trazodone 100 mg Dyslipidemia --> resumed home medication atorvastatin 40 mg PUD prophylaxis: protonix 40mg DVT prophylaxis: SCDs Goal of care discussed for 15 minutes: full code Plan discussed + Dr. Carrion Plan discussed with: Patient My Orders My Orders Orders - JAMIE BEDOLLA RESIDENT Procedure Category Date Status Time Mechanical Soft Diet DIET 06/07/24 Transmitted Dinner Dietary Evaluation Review Comments: 1) Advance diet as medically feasible 2) Continue current plan of care Expected Outcomes/Goals: To meet >75% estimated needs Fu 2-3 days Date of Service: Jun 07, 2024 Billing Provider: RHODA CARRION MD Common Visit Codes: [id number] INP/OBS CARE(HIGH) JAMIE BEDOLLA RESIDENT Jun 07, 2024 17:54 RHODA CARRION MD June 09, 2024 19:21
[2024-06-08 01:10] VITALS: BP 105/72; PULSE 87; RESP 17; TEMP 98.4; O2SAT 98
[2024-06-08 05:09] VITALS: BP_SYST 104; BP_SYST 147; BP_DIAS 49; BP_DIAS 56; PULSE 76; PULSE 91; RESP 16; RESP 17; TEMP 98; TEMP 98.5; O2SAT 93; O2SAT 97
[2024-06-08 08:00] VITALS: PULSE 81; RESP 18; O2SAT 98
[2024-06-08 09:00] VITALS: BP 92/68; PULSE 81; RESP 16; TEMP 98.4; O2SAT 98
[2024-06-08 12:03] LABS: Anion Gap 5 (5-15); Carbon Dioxide 30 mmol/L (20-31); Potassium 4.9 mmol/L (3.5-5.1); Sodium 143 mmol/L (136-145)
[2024-06-08 12:04] LABS: Calcium 9.4 mg/dL (8.7-10.4); Chloride 108 mmol/L (98-107)
[2024-06-08 12:09] LABS: BUN/Creatinine Ratio 7.5 (10.0-20.0); Blood Urea Nitrogen < 5 mg/dL (9-23); Glucose 89 mg/dL (74-106)
[2024-06-08 12:17] LABS: Basophils # (auto) 0 10 ^3/uL (0-0.2); Basophils % (auto) 0.6 % (0.0-2.0); Eosinophils # (auto) 0.2 10 ^3/uL (0-0.8); Eosinophils % (auto) 3.3 % (0.0-7.0); Hematocrit 36.7 % (36.0-46.0); Hemoglobin 12.8 g/dL (12.2-16.2); Lymphocytes # (auto) 1.9 10 ^3/uL (0.4-5.4); Lymphocytes % (auto) 29.1 % (10.0-50.0); Mean Corpuscular Hemoglobin 32.6 pg (28.0-32.0); Mean Corpuscular Hgb Conc. 34.8 g/dL (32.0-36.0); Mean Corpuscular Volume 93.9 fL (80.0-100.0); Monocytes # (auto) 0.4 10 ^3/uL (0-1.3); Monocytes % (auto) 6.3 % (0.0-12.0); Neutrophils % (auto) 60.7 % (37.0-80.0); Platelet Count (auto) 289 10^3/uL (140-450); Red Blood Cells 3.91 10^6/uL (4.0-5.20); Red Cell Distribution Width 12.5 % (11.8-14.3); White Blood Cell 6.6 10^3/uL (4.4-10.8)
--- NOTE | 2024-06-08 12:18 | DVHDSRES ---
Discharge Summary Date of Admission Resident Creating Document: JAMIE BEDOLLA RESIDENT May 30, 2024 at 21:33 Date of Discharge: June 08, 2024 Admitting Diagnosis abdominal pain Labs/Diagnostic Data: PATIENT: DANYELLE ATKINSON V ACCT: [id number] UNIT: [id number] : 1975 LOC: [facility] ROOM / BED: [address] [place] [address] AGE / SEX: 48 / F ADM STATUS: ADM IN SERVICE 0824 ORDERING PHYSICIAN: GREGORY QUEZADA MD PROCEDURE(s): CXRP - CHEST PORTABLE REASON: PRE PROCEDURE ORDER NUMBER(s): [id number], ACCESSION NUMBER(s): [id number] EXAM: XR Chest, 1 View CLINICAL INDICATION: PRE PROCEDURE TECHNIQUE: Frontal view of the chest. COMPARISON: CHEST XRAY 1 VIEW on DOS: 06/08/21, CXR1 on DOS: 06/08/21 FINDINGS: LUNGS AND PLEURAL SPACES: Unremarkable. No consolidation. No pneumothorax. HEART: Unremarkable. No cardiomegaly. MEDIASTINUM: Unremarkable. Normal mediastinal contour. BONES/JOINTS: Unremarkable. No acute fracture. OTHER FINDINGS: . None. IMPRESSION: No acute cardiopulmonary process. ATED BY: MILLA BURNS MD DICTATED DATE/TIME: 06/03/24 0856 PATIENT: DANYELLE ATKINSON V ACCT: [id number] UNIT: [id number] : 1975 LOC: [facility] ROOM / BED: [address] [place] [address] AGE / SEX: 48 / F ADM STATUS: ADM IN SERVICE 1241 ORDERING PHYSICIAN: RHODA DOOLEY MD PROCEDURE(s): MPEC - PELVIS WO W CONTRAST MRI REASON: ORDER NUMBER(s): [id number], ACCESSION NUMBER(s): [id number] EXAM: MRI PELVIS WO W CONTRAST MRI; DATE: 06/02/2024 10:31 AM HISTORY: RIGHT LOWER QUADRANT ABCESS COMPARISON: CT scan dated 05/31/2024, MRI PELVIS WITH CONTRAST MRI on DOS: 11/08/23, US PELVIC on DOS: 11/06/23 TECHNIQUE: Multiplanar, multisequence MRI was performed. FINDINGS: There is redemonstration of a bottle shaped peripherally enhancing fluid collection in the pelvis with a base in midline pelvis and the neck and head extending to the right lower quadrant measuring 7.5 cm in transverse, 4.7 cm in AP and 7.3 cm in craniocaudal with extensive surrounding inflammation. Moderate soft tissue edema and enhancement noted along the right pelvic sidewall. No prominent lymph node is identified. The uterus is not identified. The right ovary is not identified. The left ovary is unremarkable. The appendix is not identified. No significant free fluid noted in the lower abdomen or pelvis. Moderate presacral edema is noted. Mild mural thickening of the adjacent small bowel wall noted. Liquid stool seen in the lumen of the rectum. Sigmoid diverticula without signs of diverticulitis. IMPRESSION: 1. Redemonstration of a large, 7.5 x 4.7 x 7.3 cm lobular complex fluid collection in the pelvis extending to the right lower quadrant extensive surrounding inflammatory changes which is more pronounced along the right pelvic sidewall this is most compatible with an abscess. Drainage is recommended. ATED BY: SHARONA CLAIRE MD DICTATED DATE/TIME: 06/02/24 1256 PATIENT: DANYELLE ATKINSON V ACCT: [id number] UNIT: [id number] : 1975 LOC: [facility] ROOM / BED: [address] [place] [address] AGE / SEX: 48 / F ADM STATUS: ADM IN SERVICE 19 ORDERING PHYSICIAN: JAGRUTI PHAM RESIDENT PROCEDURE(s): [facility] - CT CHST AB PLV W CON-ORAL & IV REASON: abdominal pain ORDER NUMBER(s): [id number], ACCESSION NUMBER(s): [id number] Exam: CT CT CHST AB PLV W CON-ORAL IV History: abdominal pain Comparison Study: CT 05/25/2024, 04/21/2024 Contrast: 100 cc Omnipaque 300 TECHNIQUE: A digital finance director image was obtained. During the uneventful, intravenous administration of contrast material, multislice data acquisition was obtained through the abdomen and pelvis. The data set was subsequently reconstructed into axial images. Images were reviewed on a work station using a combination of axial and multiplanar using a variety of window levels and settings. All CT scans at this medical facility are performed using dose modulation techniques as appropriate to a performed exam including the following: Automated exposure control was utilized; adjustment of the MA and/or KV according to patient size; and use of iterative reconstruction technique. Radiation Dose Information: CT Dose: CTDI volume is 14.54 mGy. Dose-length product is 1000.62 mGy*cm FINDINGS: Airway is patent. Thyroid gland appears unremarkable. No mediastinal or hilar adenopathy. No pericardial or pleural effusion. Lungs appear clear with dependent changes. There is diffuse hepatic steatosis. There has been prior cholecystectomy. Common bile duct is mildly prominent. No pancreatic ductal dilatation. The pancreas, spleen, and adrenal glands appear unremarkable. The kidneys enhance symmetrically without hydronephrosis. There is no evidence of bowel obstruction. In the right lower quadrant adjacent to surgical clips there is a multiloculated mixed density lesion measuring 7.9 x 4.0 cm no evidence of free intraperitoneal air. Urinary bladder appears unremarkable. No suspicious osseous lesion. IMPRESSION: 1. Mixed density loculated masslike collection in the right lower quadrant adjacent to postsurgical changes estimated 7.9 x 4.3 cm with surrounding fat stranding. Findings may be on the basis of abscess or hematoma. Correlation with clinical history is recommended. If the patient still has ovaries, tubal ovarian abscess may be considered. ATED BY: SOFÍA SCHMITT MD DICTATED DATE/TIME: 05/31/24 0336 Laboratory Results Test 06/08/24 11:00 06/06/24 08:40 06/03/24 05:20 06/01/24 06:05 Sodium Level 143 mmol/L (136-145) Potassium Level 4.9 mmol/L (3.5-5.1) Chloride Level 108 mmol/L (98-107) Carbon Dioxide Level 30 mmol/L (20-31) Anion Gap 5 (5-15) Blood Urea Nitrogen < 5 mg/dL (9-23) Creatinine 0.67 mg/dL (0.550-1.02) Glomerular Filtration Rate Calc 108 mL/min (>90) BUN/Creatinine Ratio 7.5 (10.0-20.0) Serum Glucose 89 mg/dL (74-106) Calcium Level 9.4 mg/dL (8.7-10.4) Eosinophils (%) (Auto) 2.5 % (0.0-7.0) Eosinophils # (Auto) 0.2 10 ^3/uL (0-0.8) Basophils # (Auto) 0 10 ^3/uL (0-0.2) Nucleated Red Blood Cells 0.0 % Prothrombin Time 12.1 sec (9.3-11.8) Prothrombin Time INR 1.16 (0.9-1.15) Activated Partial Thromboplast Time 32.8 SEC (24.5-34.5) Total Bilirubin 0.8 mg/dL (0.2-1.0) Aspartate Amino Transferase (AST) 11 U/L (13-40) Alanine Aminotransferase (ALT) 16 U/L (7-40) Alkaline Phosphatase 75 U/L (46-116) Total Protein 6.3 g/dL (5.7-8.2) Albumin 4.0 g/dL (3.2-4.8) Test 06/01/24 04:20 05/30/24 19:46 05/30/24 18:28 Urine Opiates Screen Pos (NEGATIVE) Urine Barbiturates Screen Neg (NEGATIVE) Urine Phencyclidine Screen Neg (NEGATIVE) Urine Amphetamines Screen Neg (NEGATIVE) Urine Benzodiazepines Screen Neg (NEGATIVE) Urine Cocaine Screen Neg (NEGATIVE) Urine Cannabinoids Screen Neg (NEGATIVE) Lactic Acid Level 1.1 mmol/L (0.4-2.0) Lipase 35 U/L (12-53) Urine Color Light-yellow (Yellow) Urine Clarity Clear (Clear) Urine pH 6.0 (5.0-9.0) Urine Specific [place] 1.012 (1.001-1.035) Urine Protein Negative (Negative) Urine Ketones Trace (Negative) Urine Blood Negative /uL (Negative) Urine Nitrite Negative (Negative) Urine Bilirubin Negative (Negative) Urine Urobilinogen Normal mg/dL (Negative) Urine Leukocyte Esterase Negative /uL (Negative) Urine RBC 1 /hpf (0 - 4) Urine Microscopic WBC 1 /HPF (0-5) Urine Squamous Epithelial Cells None seen /hpf (<5) Urine Bacteria None seen /hpf (None Seen) Urine Glucose Normal mg/dL (Normal) Other Laboratory Tests 06/08/24 11:00 Brief Hx & Hospital Course: History of presenting ILLNESS A 48-year-old female with past medical history of asthma, fibroids, diverticulosis who comes in due to abdominal pain. Patient was discharged from the [facility] on 05/25/2024, per patient she has been experiencing abdominal pain since her discharge which is constant and progressively worsening, she describes it as burning in nature and 10/10 in intensity without any relieving factors and worsened with walking. Patient went to appendectomy on nov 2023, no diarrhea no constipation. Associated symptoms include nausea, fatigue, fever, chills, palpitations and urinary frequency. Patient was noted to have tachycardia of 129 and a white cell count of 11.3 at admission . Patient was started on LR at 30 cc/kg per hour along with IV metronidazole and IV ciprofloxacin. Past Medical History: Asthma, fibroids, diverticulosis Past Surgical History: Appendectomy, cholecystectomy, hysterectomy, abdominal plasty Family History: Diabetes, hyperlipidemia, hypertension Social History : Smoke: No, ALCOHOL: none, Drugs: None and lives with Family Brief Hospital course Patient is a 48 year olf female who presented with abdominal pains. Pains that she describes as burning in nature and 10/10 in intensity without any relieving factors and worsened with walking. Abdominal CT with IV and oral contrast showed mixed density loculated masslike collection in the right lower quadrant adjacent to postsurgical changes. Mass is estimated to be 7.9 x 4.3 cm with surrounding fat stranding. Findings may be on the basis of abscess or hematoma. Surgery was consulted and they advised percutaneous drainage, IR is consulted. Initially, general surgery recommended only antibiotic only. IR reviewed the image and said not surgical intervention given the location and the size. Nevertheless, patient was sill in pain. Surgery was reconsulted to re- assessment. On 06/03/2024, he had Exploratory laparotomy and Excision of right pelvic abscess. Surgery went well. No complication reported. She was started on clear liquid diet and gradually advanced advance her diet. Also, she has bowel movement and encouraged to ambulate. Incision site is clean. No discharges noted. Antibiotics and pain management on board. Surgery agree that patient an be discharged today. Review of Systems Constitutional: Denies fever no chills no feeling of malaise HEENT: Denies headache, ear pain, ear discharges, conjunctivitis, nasal discharge throat pain Cardiovascular: Denies chest pain, palpitation, orthopnea, PND, or pedal edema Respiratory: Denies shortness of breath, cough cough, sputum production, hemoptysis, GI: Mild-moderate abdominal pain; passing gas, bowel movement; Denies nausea, vomiting, diarrhea, hematemesis, hematochezia : Denies frequency, urgency, hematuria, Endocrine: Denies unintentional weight gain or weight loss, feeling of hot flashes, Aris: Denies easy bruising, bleeding disorders, epistaxis Musculoskeletal: Denies joint pains, muscle aches Psych: No evidence of depression, jessica, suicidal ideation Examination General Appearance: Alert, Oriented X3, Cooperative, No acute distress HEENT: Atraumatic, PERRLA, EOMI, Mucous membrane moist/pink Respiratory: Clear to auscultation, Normal air movement Cardiovascular: Regular rate, Normal S1, Normal S2, No murmurs, no chest wall tenderness Abdominal: NO distention, tenderness, bowel sounds present, wound incision site seen. no discharges seen. wound dressing in place; RYAN drain in place Extremities: No clubbing, No cyanosis, No edema, Normal pulses, No tenderness/swelling Skin: No rashes, No breakdown, No significant lesion Neuro: Normal gait, Normal speech, Strength at 5/5 X4 ext, Normal tone, Sensation intact, Cranial nerves 3-12 NL, Reflexes 2+ Psych/Mental Status: Mental status NL, Mood NL Diagnoses Intraabdominal abscess Sepsis due to above History of diverticulosis History of cholecystectomy 2 years ago, appendectomy in November 2023 History of hysterectomy without salpingo-oophorectomy Surgery 06/03/2024: PROCEDURES: Exploratory laparotomy. Excision of right pelvic abscess. Obesity grade 1, BMI 33.4 History of asthma, currently stable History of fibroids s/p hysterectomy Insomnia Dyslipidemia Discharge plan Continue antibiotics and pain medications follow up at the D/C clinic in a week follow up with surgery in 1-2 weeks for drain removal Encouraged to ambulate Discharge plan discussed + Dr. Dooley Consults/Reason for consult surgery: Intra abdominal abscess Operations or Procedures Patient: DANYELLE ATKINSON V Acct: [id number] : 1975 Loc: [facility] Age/Sex: 48/F Room: [facility] / Bed: B Attending Phy: RHODA DOOLEY MD DATE OF SURGERY: 06/03/2024 PREOPERATIVE DIAGNOSIS: Right pelvic abscess. POSTOPERATIVE DIAGNOSIS: Right pelvic hematoma with infection. 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 PROCEDURES: * Exploratory laparotomy. * Excision of right pelvic abscess. DESCRIPTION OF PROCEDURE: Under adequate anesthesia with the patient's skin prepped and draped, a midline incision was made and the exploration of the abdomen revealed the mass that was identified by MRI preoperatively. It was a bottle-shaped concretion of what appeared to be an infected hematoma. This was traced to its origin which was a blood vessel emanating from the mesentery, possibly the appendiceal artery. The bottle-shaped concretion was secured and clamped at its base by a right-angle clamp and then amputated and submitted. The tissue residual at the base of this concretion was ligated. The pelvis was profusely irrigated. Bowel was inspected. There was no evidence of bowel leak. There was no evidence of injury to the serosal surfaces. Following further irrigation, the irrigant was aspirated. There was complete hemostasis at the termination of the procedure. A 10 mm Luis Felipe-Medrano drain was inserted into the pelvis and exteriorized through a separate incision, secured with a 2-0 nylon suture. Subsequently, the abdominal wall was approximated using #1 double-stranded PDS with great caution exercised so as to minimize the potential for any injury to the underlying bowel. The subcutaneous tissues and skin were then approximated using Monocryl sutures, Dermabond glue, and Steri-Strips. The patient remained stable throughout the procedure, left the operating room following an accurate needle and sponge count. The patient's was thoroughly informed by phone. Gregory Quezada MD PF/CLINT TID: [id number] RECEIPT: [id number] DICTATED BY:GREGORY QUEZADA MD DICTATED DATE/TIME:06/03/24 0814 Condition at Discharge: Good Final Diagnosis/Problems List Intraabdominal abscess Sepsis due to above History of diverticulosis History of cholecystectomy 2 years ago, appendectomy in November 2023 History of hysterectomy without salpingo-oophorectomy Surgery 06/03/2024: PROCEDURES: Exploratory laparotomy. Excision of right pelvic abscess. Obesity grade 1, BMI 33.4 History of asthma, currently stable History of fibroids s/p hysterectomy Insomnia Dyslipidemia Discharge Disposition: Home Discharge Instruct/Medications Diet: Regular Activity: No Restrictions, As Tolerated Follow Up/Referral: 7 day Medications: pain medication Discharge Statement: "Patient was advised to return to the ER or call 911 if any headaches, dizziness, shortness of breath, chest pain, abdominal pain, bleeding, fevers, or worsening of medical condition. Patient was counseled about treatment plan, medications, possible side effects, patientverbalized understanding. All questions were answered to the best of my ability. This discharge took greater then 30 minutes in planning, reviewing documentation, counseling the patient, and discussing with other team members." ASSESSMENT ASSESSMENT Assessment Acute intractable abdominal pain due to RLQ abscess vs hematoma? Intraabdominal abscess Sepsis due to above History of diverticulosis History of cholecystectomy 2 years ago, appendectomy in November 2023 History of hysterectomy without salpingo-oophorectomy Surgery 06/03/2024: PROCEDURES: Exploratory laparotomy. Excision of right pelvic abscess. Obesity grade 1, BMI 33.4 History of asthma, currently stable History of fibroids s/p hysterectomy Insomnia Dyslipidemia Date of Service: June 08, 2024 Billing Provider: RHODA DOOLEY MD Common Visit Codes: 10187-MFI/OBS DISCH DAY >30min JAMIE BEDOLLA RESIDENT June 08, 2024 12:18 RHODA DOOLEY MD June 09, 2024 19:26
[2024-06-08] MEDS ORDERED: METR-344 PO (12:20)
[2024-06-08] MEDS ORDERED: ACET-1882 PO (12:20)
[2024-06-08] MEDS ORDERED: CIP500T GT (12:22)
--- NOTE | 2024-06-08 12:40 | DVHPN2 ---
Progress Note Date Seen: June 08, 2024 Has the PT tested + for MRSA If YES, has PT been informed?: No Medical Necessity Reason Pt with a Central, PICC or Fol: No Objective vital signs Vital Sign Date Time Temp Pulse Resp B/P (MAP) Pulse Ox O2 Delivery O2 Flow Rate FiO2 06/08/24 10:21 87 18 103/57 06/08/24 09:00 98.4 98 98.4 06/08/24 08:00 Room Air* 0 21 Total Intake and Output 06/07/24 06/07/24 06/08/24 15:00 23:00 07:00 Intake Total 350 ml 1400 ml 270 ml Output Total 35 ml Balance 350 ml 1365 ml 270 ml medications Current Medications Medications Dose Ordered Sig/Liane Route Start Time Stop Time Status Last Admin Dose Admin Acetaminophen 325 mg Q4HP PRN PO 05/30/24 21:45 06/02/24 15:55 325 MG Ciprofloxacin 200 ml @ 200 mls/hr Q12HR IV 05/31/24 09:00 06/08/24 11:11 200 MLS/HR Metronidazole 100 ml @ 100 mls/hr Q8HR IV 05/31/24 06:00 06/08/24 05:06 100 MLS/HR Atorvastatin Calcium 40 mg HS PO 05/31/24 22:00 06/07/24 21:21 40 MG Trazodone HCl 100 mg HS PO 05/30/24 22:00 06/07/24 23:14 100 MG Potassium Chloride/Dextrose/ Sod Cl 1,000 ml @ 120 mls/hr Q8H20M IV 06/03/24 10:15 06/07/24 23:14 120 MLS/HR Ceftriaxone Sodium 50 ml @ 100 mls/hr DAILY@09 IV 06/04/24 09:00 06/08/24 10:08 100 MLS/HR Ondansetron HCl 4 mg Q4HPRN PRN IV 06/03/24 10:15 06/07/24 09:17 4 MG Pantoprazole Sodium 40 mg DAILY IV 06/04/24 10:00 06/08/24 10:09 40 MG Acetaminophen/ Codeine Phosphate 1 tab Q4HP PRN PO 06/03/24 20:00 06/08/24 06:39 1 TAB Hydromorphone HCl 1 mg Q4HP PRN IV 06/07/24 19:30 06/08/24 10:21 1 MG laboratory and microbiology Laboratory Tests 06/08/24 11:00 Test 06/08/24 11:00 Range/Units Serum Glucose 89 74-106 mg/dL Problem List/Assessment/Plan Problem List/Assessment/Plan 06/06/24 passing flatus, no BM, no nausea or vomiting, abdomen non distended, appropriately tender, wound clean and well approximated, needs to increase ambulation. 06/08/24 doig well, wound ok,clean and well approximated, bethanie drainage serosanguineous, abdomen apropriately tender, she is ready to be discharged Instructions given, needs po antibiotic and pain Rx Plan discussed with: Patient Dietary Evaluation Review Comments: 1) Advance diet as medically feasible 2) Continue current plan of care Expected Outcomes/Goals: To meet >75% estimated needs Fu 2-3 days GREGORY LEIVA MD June 08, 2024 12:40
[2024-06-08 13:00] VITALS: BP 121/75; PULSE 91; RESP 16; TEMP 98; O2SAT 99
[2024-06-08] MEDS ORDERED: HYDR1TAB97 PO (14:14)
== END 2024-06-08 15:30 | disposition home or self-care (01) | DRG 853 ==
LOC: ER 18:15 → OVERFLOW 21:33 → WEST WING 05-31 02:35
PROVIDERS: ADMIT Student in an Organized Health Care Education/Training Program; ATTEND Student in an Organized Health Care Education/Training Program
PROC: 0WBH0ZZ Excision of Retroperitoneum, Open Approach (ICD-10-PCS; 2024-06-03)
PROC: 0W9J00Z Drainage of Pelvic Cavity with Drainage Device, Open Approach (ICD-10-PCS; principal; 2024-06-03 09:01)
DX: A41.9 Sepsis, unspecified organism (principal); K65.1 Peritoneal abscess; K57.32 Diverticulitis of large intestine without perforation or abscess without bleeding; L02.818 Cutaneous abscess of other sites; N70.93 Salpingitis and oophoritis, unspecified; G47.00 Insomnia, unspecified; N94.89 Other specified conditions associated with female genital organs and menstrual cycle; J45.909 Unspecified asthma, uncomplicated; E78.5 Hyperlipidemia, unspecified; E66.01 Morbid (severe) obesity due to excess calories; N73.9 Female pelvic inflammatory disease, unspecified; K76.0 Fatty (change of) liver, not elsewhere classified; Z90.49 Acquired absence of other specified parts of digestive tract; Z90.710 Acquired absence of both cervix and uterus; Z68.32 Body mass index [BMI] 32.0-32.9, adult; Z83.3 Family history of diabetes mellitus; Z82.49 Family history of ischemic heart disease and other diseases of the circulatory system; Z79.2 Long term (current) use of antibiotics; Z79.899 Other long term (current) drug therapy; Z87.440 Personal history of urinary (tract) infections
CPT/HCPCS: 36415; 71045; 71260; 73723; 74177; 80048; 80053; 80307; 81001; 83605; 83690; 85025; 85610; 85730; 86850; 86900; 86901; 87040; 87070; 87075; 87081; 87177; 87205; 93005; G0378; J1100; J1885; J2250; J2405; J2470; J2704; J3490

== ENCOUNTER 2024-09-04 06:21 | Outpatient (CLI) | payer BC ==
[~2024-09-04 06:21] MED LIST changes: +ACET-1882 PO; +CIP500T GT; -CIPR500T4 PO; -CYCL-837 PO; +HYDR1TAB97 PO; +PAR20T PO; -SENN-58 PO
[2024-09-04 08:04] LABS: Urine Protein, UAD Negative (Negative)
[2024-09-04 08:13] LABS: Hematocrit 42.1 % (36.0-46.0); Hemoglobin 14.6 g/dL (12.2-16.2); Mean Corpuscular Hemoglobin 33.6 pg (28.0-32.0); Mean Corpuscular Volume 97.1 fL (80.0-100.0); Nucleated Red Blood Cells % 0.0 %
[2024-09-04 08:21] LABS: Alanine Aminotransferase 30 U/L (7-40); Albumin 4.7 g/dL (3.2-4.8); Alkaline Phosphatase 93 U/L (46-116); Anion Gap 9 (5-15); BUN/Creatinine Ratio 19.5 (10.0-20.0); Bilirubin, Total 0.5 mg/dL (0.2-1.0); Blood Urea Nitrogen 15 mg/dL (9-23); Calcium 9.9 mg/dL (8.7-10.4); Carbon Dioxide 27 mmol/L (20-31); Chloride 106 mmol/L (98-107); Cholesterol 264 mg/dL (< 200); Glucose 86 mg/dL (74-106); HDL Cholesterol 82 mg/dL (40-59); Potassium 4.2 mmol/L (3.5-5.1); Sodium 142 mmol/L (136-145); Total Protein 7.0 g/dL (5.7-8.2); Triglycerides 160 mg/dL (< 150)
== END 2024-09-04 17:00 | disposition home or self-care (01) ==
LOC: LAB 06:21
PROVIDERS: ATTEND Internal Medicine
DX: E78.5 Hyperlipidemia, unspecified (principal)
CPT/HCPCS: 36415; 80053; 80061; 81001; 82274; 82306; 85025